=== PATIENT | female | born 1960 | race Caucasian/White ===

== ENCOUNTER 2016-05-26 18:04 | Emergency (ER) | payer SELFPAY ==
[~2016-05-26] VITALS: Ht 170.2 cm; Wt 77.1 kg
[~2016-05-26 18:04] MED LIST: AC500T PO; ACET325T38 PO; ACHD5005 PO; AMOX500C2 PO; ASP81TEC PO; ATOR40TA70 PO; BUTA1CAP40 PO; CEPH-38; CEPH500C PO; CLIN300C3 PO; FAMO-119 PO; FENO145T20 PO; FISH1CAP15 PO; HYDR-3063 PO; HYDR-34 PO; HYDR-3583 PO; IBP200T PO; OMEG-12 PO; OMEG1CAP51 PO; OMEP20CA12 PO; PENI250T4; PRD20T; PRDM473B; PRM25T PO; PROM12.59 PO; PROM25SU10 PR; SIMV20TA PO; SULF1TAB38 PO; TCD12.5U; TRAM-21 PO; TRAM50TA2 PO; VENL75CA PO; VNL75T; VNL75T PO; zocor
[2016-05-26] MEDS ORDERED: EPINEPHrine INJECTION 1 MG/ML AMP IM STA (18:11)
[2016-05-26] MEDS ORDERED: FAMOTIDINE 20MG/2ML IV (PEPCID) IV STA (18:11)
[2016-05-26] MEDS ORDERED: diphenhydrAMINE 50 MG/ML INJ (BENADRYL) IV STA (18:11)
[2016-05-26] MEDS ORDERED: methylPREDNISolone 125 MG (Solu-MEDROL) VIAL IV STA (18:11)
--- OUTSIDE RECORDS SUMMARY | 2016-05-26 18:11 | XMS REPORT | Continuity of Care Document ---
Author Author [facility] Organization [facility] Address Unknown Phone Unavailable Care Team Providers Care Stripper Apprentice Name Role Phone [facility] PCP Insurance Providers Payer Name Policy Number Subscriber Name Relationship [employer] Mp [id number] Melonie Rees 20 Self / Same As Patient Advance Directives Directive Response Recorded Date/Time Advance Directives No 08/24/14 9:49pm Health Care Power of Computer Field Technician No 08/24/14 9:49pm Organ Donor No 08/24/14 9:49pm Resuscitation Status Full Code 08/24/14 9:49pm Problems Medical Problems Problem Onset Date Status Closed head injury Unknown Active Closed head injury Unknown Active Closed head injury Unknown Active Multiple contusions Unknown Active Right upper quadrant pain Unknown Active Headache Unknown Active Nausea and vomiting Unknown Active Right upper quadrant pain Unknown Active Chest pain Unknown Active Hordeolum externum of left lower eyelid Unknown Active Medications Medication Dose Route Sig Days/Qty Instructions Order Date Discontinued Date Status Penicillin G Potassium 08/17/08 01/22/09 Discontinued Promethazine HCl/Dextromethorphan 08/17/08 01/22/09 Discontinued Venlafaxine HCl 01/22/09 01/22/09 Discontinued Venlafaxine HCl 2 Tab PO DAILY 01/22/09 05/17/14 Discontinued Aspirin 81 Mg PO DAILY 08/30/11 Active Acetaminophen 2 Tab PO Q6HR PRN 10/29/11 02/02/13 Discontinued Ibuprofen 400 Mg PO Q4HR PRN 10/29/11 04/16/13 Discontinued Amoxicillin 1 Each PO THREE TIMES A DAY 10 Days 10/29/11 01/30/13 Discontinued [place]-3 Fatty Acids/Fish Oil 4 Each PO TWICE A DAY 01/30/13 Discontinued Trimethoprim/Sulfamethoxazole 1 Ea PO TWICE A DAY 10 Days 01/30/13 Discontinued Acetaminophen/Hydrocodone Bitart 1 Ea PO Q4HR PRN 10 Qty 01/30/13 Discontinued Clindamycin HCl 2 Each PO GIVE EVERY 8 HRS ON SCHEDULE 10 Days take 600 mg three times daily x 10 days 02/02/13 04/16/13 Discontinued Acetaminophen/Hydrocodone Bitart 1 Each PO EVERY 4HRS 15 Qty 02/02/13 04/16/13 Discontinued Promethazine HCl 1 Tab PO FOUR TIMES DAILY 30 Qty as needed for nausea/ vomiting 02/02/13 04/16/13 Discontinued Fish Oil/Dha/Epa 4 Each PO BEDTIME 04/16/13 03/17/14 Discontinued Butalbit/Acetamin/Caff/Codeine 1 Each PO EVERY 4HRS PRN HEADACHE 10 Qty 07/26/13 09/21/13 Discontinued Promethazine HCl 25 Mg PO EVERY 8HRS PRN NAUSEA/VOMITING 14 Qty 09/21/13 Discontinued [place]-3/Dha/Epa/Fish Oil 4,000 Mg PO TWICE A DAY 03/17/14 Active Acetaminophen/Hydrocodone Bitart ([place]) 1 Ea PO EVERY 4HRS PRN PAIN 35 Qty 03/17/14 04/27/14 Discontinued Promethazine Hcl 25 Mg PO EVERY 6 HOURS PRN NAUSEA 30 Qty 03/17/14 Discontinued Tramadol Hcl 50 Mg PO EVERY 6 HOURS PRN PAIN 10 Qty 04/07/14 05/17/14 Discontinued [zocor] BEDTIME 04/27/14 05/17/14 Discontinued Promethazine Hcl 1 Tab PO EVERY 8HRS PRN NAUSEA/VOMITING 10 Qty 05/17/14 Discontinued Promethazine Hcl 25 Mg SD EVERY 8HRS PRN NAUSEA/VOMITING 5 Qty 05/17/14 Discontinued Acetaminophen 1,000 Mg PO EVERY 6 HOURS PRN PAIN 05/17/14 Active Tramadol Hcl 50 Mg PO EVERY 6 HOURS PRN PAIN 05/17/14 08/24/14 Discontinued Simvastatin 20 Mg PO BEDTIME 05/17/14 05/17/14 Discontinued Fenofibrate Nanocrystallized 145 Mg PO DAILY 30 Qty 05/17/14 08/24/14 Discontinued Omeprazole 20 Mg PO DAILY 30 Qty 05/17/14 08/24/14 Discontinued Atorvastatin Calcium 40 Mg PO BEDTIME 30 Qty 05/17/14 Active Hydrocodone Bit/Acetaminophen Unknown Dose PO DIRECTED 08/24/14 Active Venlafaxine HCl 75 Mg PO TWICE A DAY 08/24/14 Active Cephalexin Monohydrate (Keflex) 1 Each PO THREE TIMES A DAY 21 Qty Active Social History Social History Problem Response Recorded Date/Time Alcohol Use Denies Use 08/24/2014 9:49pm Recreational Drug Use No 08/24/2014 9:49pm Recent Foreign Travel No 08/24/2014 9:49pm Recent Infectious Disease Exposure No 08/24/2014 9:49pm Hospitalization with Isolation Contact 09/21/2013 3:00pm Sexually Transmitted Disease No 08/24/2014 9:49pm HIV/AIDS No 08/24/2014 9:49pm Smoking Status Never a Smoker 08/24/2014 9:49pm Do you dip or chew tobacco? No 08/24/2014 9:49pm Query Response Start Date Stop Date Smoking Status Never a Smoker Hospital Discharge Instructions No hospital discharge instructions. Plan of Care No plan of care. Functional Status No functional status results. Allergies, Adverse Reactions, Alerts Allergen Type Severity Reaction Status Last Updated ciprofloxacin ([id number]) Allergy Unknown Active 08/24/14 ondansetron ([id number]) Allergy Unknown Active 03/17/14 Immunizations Name Given Type Date of Pneumonia Vaccine 01/05/11 Historical Date of Influenza Vaccine 02/05/13 Historical Hepatitis A No Historical Hepatitis B No Historical Tetanus Booster (TDap) Unknown Historical Vital Signs Acute Vital Signs Vital Response Date/Time Temperature (Fahrenheit) 98.3 degrees F (97.6 - 99.5) Temperature (Calculated Celsius) 36.89159 degrees C (36.4 - 37.5) Temperature Source Temporal Pulse Rate (adult) 77 bpm (60 - 90) Respiratory Rate 16 bpm (12 - 24) O2 Sat by Pulse Oximetry 98 % (88 - 100) Blood Pressure 149/81 mm Hg Pain Pain Intensity 8 Height (Feet) 5 feet Height (Inches) 7 inches Height (Calculated Centimeters) 170.623603 cm Weight (Pounds) 162 pounds Weight (Calculated Kilograms) 73.807432 kilograms Calculated BMI 25.37 Results No known relevant diagnostic tests, laboratory data and/or discharge summary. Procedures No known history of procedures. Encounters Encounter Location Date/Time Departed Emergency Room [facility] 08/24/14 9:10pm Recent Diagnosis
[2016-05-26] MEDS ORDERED: PROP60TA17 PO (18:28)
[2016-05-26] MEDS ORDERED: LORA10CA PO (18:28)
--- NOTE | 2016-05-26 18:47 | ED General ---
General Chief Complaint: Allergic Reaction Stated Complaint: SOA, ALLERGIC REACTION, NUMBNESS, VOMITING Nursing Triage Note: pt reports reaction to sriracha cheese. immediate vomiting et throat swelling. Nursing Sepsis Screen: No Definite Risk Source of Information: Patient, Family (daughter) Exam Limitations: No Limitations History of Present Illness Time Seen by Provider: 18:05 Initial Comments 55-year-old female patient presents to the emergency department complaints of allergic reaction to srirabenny cheese. Patient reports swelling of the throat, difficulty breathing, difficulty swallowing. Daughter reports patient has developed multiple allergies over the recent years.patient states her EpiPen has run out. Timing/Duration: 1/2 Hour Modifying Factors: worse with Eating (sriracha) Allergies and Home Medications Allergies Coded Allergies: ciprofloxacin (Verified Allergy, Unknown, 08/24/14) naproxen (Verified Allergy, Unknown, 08/24/14) HEADACHE ondansetron (Unverified Allergy, Unknown, 03/17/14) Home Medications Acetaminophen 325 Mg Tablet 1,000 MG PO Q6H PRN PRN PAIN (Reported) Aspirin 81 Mg Tabec 81 MG PO DAILY (Reported) Atorvastatin Calcium 40 Mg Tablet #30 40 MG PO HS Prescribed by: EDUARDO OVALLE on 05/17/14 1429 Cephalexin Monohydrate 500 Mg Capsule #21 1 EACH PO TID Prescribed by: DEJA BAKER on 08/24/14 2225 Epinephrine 0.3 Mg/0.3 Ml Auto.injct #1 0.3 MG IJ UD PRN PRN SHORTNESS OF BREATH Prescribed by: MACKENZIE CONNOR on 05/26/162012 Famotidine 20 Mg Tablet #60 20 MG PO BID Prescribed by: MACKENZIE CONNOR on 12/15/15 1916 Famotidine 20 Mg Tablet #20 20 MG PO BID Prescribed by: MACKENZIE CONNOR on 05/26/162012 Hydrocodone Bit/Acetaminophen 1 Each Tablet Unknown Dose PO UD (Reported) Loratadine 10 Mg Capsule 10 MG PO DAILY (Reported) [place]-3/Dha/Epa/Fish Oil 1 Each Capsule.dr 4,000 MG PO BID (Reported) TAKES 4 (1000MG) CAPSULES TWICE DAILY Prednisone 20 Mg Tab #8 40 MG PO DAILY Prescribed by: MACKENZIE CONNOR on 05/26/162012 Propranolol HCl 60 Mg Tablet #60 60 MG PO BID (Reported) Venlafaxine HCl 75 Mg Cap.er.24h 75 MG PO BID (Reported) Constitutional: no symptoms reported EENTM: see HPI throat swellingNo ear pain, No mouth pain, No mouth swelling, No nose congestion, No throat pain Respiratory: No cough, short of breathNo stridor, No wheezing Cardiovascular: no symptoms reported Gastrointestinal: No abdominal pain, No nausea, No vomiting Genitourinary: no symptoms reported Musculoskeletal: no symptoms reported Skin: No change in color, No lesions, No pruritus, No rash Psychiatric/Neurological: Denies Headache, Denies Seizure Immunological/Allergic: see HPI food allergy All Other Systems Reviewed Negative Unless Noted: Yes (Negative excepted noted.) Past Wnvmbdh-Eyiekb-Xltrbh Hx Patient Social History Alcohol Use: Denies Use Recreational Drug Use: No Smoking Status: Former Smoker Recent Foreign Travel: No Contact w/Someone Who Travel: No Recent Infectious Disease Expo: No Recent Hopitalizations: Yes (PANCREATITIS) Immunizations Up To Date Tetanus Booster (TDap): Unknown PED Vaccines UTD: Yes Date of Pneumonia Vaccine: Jan 05, 2011 Date of Influenza Vaccine: Feb 06, 2016 Seasonal Allergies Seasonal Allergies: No Surgeries HX Surgeries: Yes (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 Genitourinary Hx Genitourinary Disorders: No Gastrointestinal Hx Gastrointestinal Disorders: No Gastrointestinal Disorders: Pancreatitis Musculoskeletal Hx Musculoskeletal Disorders: Yes Musculoskeletal Disorders: Fibromyalgia Endocrine Hx Endocrine Disorders: No HEENT HX ENT Disorders: No HEENT Disorders: Chronic Ear Infection Loss of Vision: Denies Cancer Hx Cancer: Yes Cancer: Pancreatic Psychosocial Hx Psychiatric Problems: No Behavioral Health Disorders: Depression Integumentary HX Skin/Integumentary Disorder: No Blood Transfusions Hx Blood Disorders: Yes Adverse Reaction to a Blood Tr: No Reviewed Nursing Assessment Reviewed/Agree w Nursing PMH: Yes Family Medical History Significant Family History: Heart Disease, CAD Under 55 Years Old Family Medial History: Alzheimer's disease 19 MOTHER Cardiovascular disease 19 MOTHER Diabetes mellitus 19 MOTHER FH: CHF (congestive heart failure) 19 MOTHER Hypertension 19 MOTHER Kidney disease 19 MOTHER Myocardial infarction 19 MOTHER Physical Exam Vital Signs Vital Sign - Last 12Hours 05/26/16 18:05 Temp 98.3 Pulse 71 Resp 24 B/P 161/92 Capillary Refill : Less Than 3 Seconds General Appearance: No Apparent Distress WD/WN HEENT: PERRL/EOMI TMs Normal Normal ENT Inspection Pharynx Normal Neck: Full Range of Motion Normal Inspection Non Tender Supple Respiratory: Lungs Clear No Accessory Muscle Use No Respiratory Distress Decreased Breath Sounds Cardiovascular: Regular Rate, Rhythm No Edema No Murmur Normal Peripheral Pulses Gastrointestinal: Normal Bowel Sounds Non Tender SoftNo Distended Back: Normal Inspection Extremity: Normal Capillary Refill Normal Inspection Neurologic/Psychiatric: Alert Oriented x3 No Motor/Sensory Deficits cloth desizing range tender II- XII Norm as Tested Other (anxious) Skin: Normal Color Warm/Dry Progress/Results/Core Measures Results/Orders My Orders Orders-MACKENZIE CONNOR Saline Lock/Iv-Start (05/26/16 18:11) Famotidine Injection (Pepcid Injection) (05/26/16 18:11) Epinephrine 1 Mg Injection (Adrenalin I (05/26/16 18:11) Methylprednisolone Sod Succ (Solu-Medrol (05/26/16 18:11) Diphenhydramine Injection (Benadryl Inje (05/26/16 18:11) Prednisone Tablet (Deltasone Tablet) (05/26/16 22:15) Vital Signs/I&O Vital Sign - Last 12Hours 05/26/16 18:05 Temp 98.3 Pulse 71 Resp 24 B/P 161/92 Blood Pressure Mean: 115 Departure Communication Progress Notes Patient seen and evaluated. Patient was advised that we would observe her for 4 hours. If after 4 hours she has not had recurrence of symptoms, we will dsch her to home. Patient was monitored closely throughout the ED visit. No recurrence of swelling of the throat or SOA was noted. Patient continued to show improvement in BS bilaterally. Patient was able to fall asleep during the visit and rest comfortably. ED visit uneventful. Plan for dsch to home with prescriptions for an epipen, pepcid, and prednisone. Patient instructed to use benadryl over the counter if needed for symptoms and to f/u with her PCP for recheck this week. all return precautions were discussed with the patient as described in the discharge instructions of this report. Patient voices understanding and agrees with the treatment plan. Patient case discussed with Dr. Jones, he agrees with the plan of care. Impression Impression: Primary Impression: Food allergy Disposition: 01 HOME, SELF-CARE Condition: Improved Departure-Patient Inst. Decision time for Depature: 20:10 Referrals: [facility] (PCP/Family) Primary Care Physician Patient Instructions: Food Allergy, Anaphylaxis (DC) Add. Discharge Instructions: All discharge instructions reviewed with patient and/or family. Voiced understanding. medications as instructed. Benadryl [id number] as directed for rash, itching, difficulty swallowing, swelling. Avoid the offending agent. Follow-up with your family practitioner for recheck this week , call for appointment time tomorrow morning. Return to the emergency department for worsened shortness of air, swelling, difficulty swallowing, headache, dizziness, vomiting, or any other concerns. Scripts Epinephrine (Epipen 2-Shaq)0.3 Mg/0.3 Ml Auto.injct0.3 Mg IJ UD PRN SHORTNESS OF BREATH #1 PKT Ref 0 Prov:MACKENZIE CONNOR 05/26/16 Famotidine (Pepcid)20 Mg [id number] Mg PO BID #20 TAB Ref 0 Prov:MACKENZIE CONNOR 05/26/16 Prednisone 20 Mg Tab40 Mg PO DAILY #8 TAB Ref 0 Prov:MACKENZIE CONNOR 05/26/16 MACKENZIE CONNOR May 26, 2016 18:47
[2016-05-26] MEDS ORDERED: PRD20T PO (20:13)
[2016-05-26] MEDS ORDERED: EPIN0.3P3 IJ (20:13)
[2016-05-26] MEDS ORDERED: FAMO-119 PO (20:13)
[2016-05-26] MEDS ORDERED: predniSONE 20 MG TAB PO ONE (22:15)
[2016-05-26 22:20] VITALS: BP 154/88
== END 2016-05-26 22:20 | disposition home or self-care (01) ==
LOC: EDUNIT# 18:04 → ER 18:05
DX: R13.10 Dysphagia, unspecified (principal); R22.0 Localized swelling, mass and lump, head; T78.1XXA Other adverse food reactions, not elsewhere classified, initial encounter; I10 Essential (primary) hypertension; Z79.82 Long term (current) use of aspirin; Z79.899 Other long term (current) drug therapy; Z87.891 Personal history of nicotine dependence
CPT/HCPCS: 96372; 96374; 96375

== ENCOUNTER 2016-09-03 06:47 | Emergency (ER) | payer SELFPAY ==
[~2016-09-03] VITALS: Ht 167.6 cm; Wt 68.0 kg
[~2016-09-03 06:47] MED LIST changes: +EPIN0.3P3 IJ; +LORA10CA PO; +PRD20T PO; +PROP60TA17 PO
[2016-09-03] MEDS ORDERED: KETOROLAC 60 MG/2 ML VIAL IM ONE (07:15)
[2016-09-03] MEDS ORDERED: ORPHENADRINE 60 MG/2 ML (NORFLEX) AMP IM ONE (07:15)
--- NOTE | 2016-09-03 07:36 | Diagnostic Imaging Report ---
INDICATION: Right hip pain 2 views of the right hip show no fracture, dislocation or other acute abnormalities. IMPRESSION: Negative right hip. Dictated by: Dictated on workstation # [id number]
--- NOTE | 2016-09-03 07:36 | Diagnostic Imaging Report ---
INDICATION: Right hip pain AP view pelvis shows no fracture or dislocation. IMPRESSION: Negative pelvis. Dictated by: Dictated on workstation # [id number]
--- NOTE | 2016-09-03 07:50 | ED Hip Pain/Injury ---
General Chief Complaint: Hip/Pelvic Problems Stated Complaint: HIP PAIN,SOMETHING POPPED WHEN STRETCHING LEG SATU Nursing Triage Note: PT CO OF R HIP PAIN Source: patient Exam Limitations: no limitations History of Present Illness Time seen by provider: 07:00 Initial Comments This 56-year-old woman presents to the emergency room with complaints of pain in her right hip and right lower back. She experiences a popping sensation. She reports recently being seen by specialist in [place] who performed manipulation therapy. Her pain has been worse since then. She denies any fall or trauma. She has not taken anything this morning for pain. She tried hydrocodone when pain started and it was not helpful. She is presently on long- term steroid use for lupus. Allergies and Home Medications Allergies Coded Allergies: ciprofloxacin (Verified Allergy, Unknown, 08/24/14) naproxen (Verified Allergy, Unknown, 08/24/14) HEADACHE ondansetron (Unverified Allergy, Unknown, 03/17/14) Home Medications Acetaminophen 325 Mg Tablet, 1,000 MG PO Q6H PRN for PAIN, (Reported) Aspirin 81 Mg Tabec, 81 MG PO DAILY, (Reported) Atorvastatin Calcium 40 Mg Tablet, 40 MG PO HS, #30 Ref 4 Prescribed by: EDUARDO OVALLE on 05/17/14 1429 Cephalexin Monohydrate 500 Mg Capsule, 1 EACH PO TID, #21 Prescribed by: DEJA BAKER on 08/24/14 2225 Cyclobenzaprine HCl 10 Mg Tablet, 10 MG PO TID PRN for SPASMS, #10 Prescribed by: CHILO LOVE on 09/03/16 0806 Epinephrine 0.3 Mg/0.3 Ml Auto.injct, 0.3 MG IJ UD PRN for SHORTNESS OF BREATH, #1 Ref 0 Prescribed by: MACKENZIE CONNOR on 05/26/162012 Famotidine 20 Mg Tablet, 20 MG PO BID, #60 Ref 0 Prescribed by: MACKENZIE CONNOR on 12/15/15 1916 Famotidine 20 Mg Tablet, 20 MG PO BID, #20 Ref 0 Prescribed by: MACKENZIE CNONOR on 05/26/162012 Hydrocodone Bit/Acetaminophen 1 Each Tablet, Unknown Dose PO UD, (Reported) Loratadine 10 Mg Capsule, 10 MG PO DAILY, (Reported) [place]-3/Dha/Epa/Fish Oil 1 Each Capsule., 4,000 MG PO BID, (Reported) TAKES 4 (1000MG) CAPSULES TWICE DAILY Prednisone 20 Mg Tab, 40 MG PO DAILY, #8 Ref 0 Prescribed by: MACKENZIE CONNOR on 05/26/162012 Propranolol HCl 60 Mg Tablet, 60 MG PO BID, #60 (Reported) Venlafaxine HCl 75 Mg Cap.er.24h, 75 MG PO BID, (Reported) Constitutional: no symptoms reported EENTM: no symptoms reported Respiratory: no symptoms reported Cardiovascular: no symptoms reported Gastrointestinal: no symptoms reported Genitourinary: no symptoms reported Musculoskeletal: see HPI Skin: no symptoms reported Psychiatric/Neurological: No Symptoms Reported Past Invrnuw-Awfxxt-Ttksud Hx Patient Social History Alcohol Use: Denies Use Recreational Drug Use: No Smoking Status: Former Smoker Recent Foreign Travel: No Contact w/Someone Who Travel: No Recent Infectious Disease Expo: No Recent Hopitalizations: Yes (PANCREATITIS) Immunizations Up To Date Tetanus Booster (TDap): Unknown PED Vaccines UTD: Yes Date of Pneumonia Vaccine: Jan 05, 2011 Date of Influenza Vaccine: Feb 06, 2016 Seasonal Allergies Seasonal Allergies: No Surgeries HX Surgeries: Yes (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 Genitourinary Hx Genitourinary Disorders: No Gastrointestinal Hx Gastrointestinal Disorders: No Gastrointestinal Disorders: Pancreatitis Musculoskeletal Hx Musculoskeletal Disorders: Yes Musculoskeletal Disorders: Fibromyalgia Endocrine Hx Endocrine Disorders: Yes Endocrine Disorders: Lupus HEENT HX ENT Disorders: No HEENT Disorders: Chronic Ear Infection Loss of Vision: Denies Cancer Hx Cancer: Yes Cancer: Pancreatic Psychosocial Hx Psychiatric Problems: No Behavioral Health Disorders: Depression Integumentary HX Skin/Integumentary Disorder: No Blood Transfusions Hx Blood Disorders: Yes Adverse Reaction to a Blood Tr: No Family Medical History Significant Family History: Heart Disease, CAD Under 55 Years Old Family Medial History: Alzheimer's disease 19 MOTHER Cardiovascular disease 19 MOTHER Diabetes mellitus 19 MOTHER FH: CHF (congestive heart failure) 19 MOTHER Hypertension 19 MOTHER Kidney disease 19 MOTHER Myocardial infarction 19 MOTHER Physical Exam Vital Signs Vital Sign - Last 12Hours 09/03/16 07:05 Temp 97.1 Pulse 72 Resp 18 B/P (MAP) 136/74 Pulse Ox 98 Capillary Refill : Less Than 3 Seconds General Appearance: WD/WN, Mild Distress HEENT: PERRL/EOMI, Normal ENT Inspection Cardiovascular: Regular Rate, Rhythm, No Edema, No Murmur Respiratory: Lungs Clear, Normal Breath Sounds, No Accessory Muscle Use, No Respiratory Distress Gastrointestinal: Normal Bowel Sounds, Non Tender, Soft Extremity: Normal Range of Motion, Other (pain in the right hip with deep palpation and external rotation. Tenderness over the right SI joint. Distal sensation, movement, pedal pulses, and capillary refill intact.) Neurologic/Psychiatric: Alert, Oriented x3, No Motor/Sensory Deficits, Normal Mood/Affect, printing agent II-XII Norm as Tested Skin: Normal Color, Warm/Dry Progress/Results/Core Measures Results/Orders My Orders Orders - CHILO GALLARDO MD Ketorolac Injection (Toradol Injection) (09/03/16 07:15) Orphenadrine Injection (Norflex Injectio (09/03/16 07:15) Pelvis (09/03/16 07:14) Hip, Right, 2 Views (09/03/16 07:14) Medications Given in ED Current Medications Medications Dose Ordered Sig/Adalberto Route Start Time Stop Time Status Last Admin Dose Admin Ketorolac Tromethamine 60 mg ONCE ONCE IM 09/03/16 07:15 09/03/16 07:16 DC 09/03/16 07:18 60 MG Orphenadrine Citrate 60 mg ONCE ONCE IM 09/03/16 07:15 09/03/16 07:16 DC 09/03/16 07:18 60 MG Vital Signs/I&O Vital Sign - Last 12Hours 09/03/16 09/03/16 07:05 08:07 Temp 97.1 Pulse 72 72 Resp 18 18 B/P (MAP) 136/74 Pulse Ox 98 98 Blood Pressure Mean: 94 Progress Note : Progress Note Patient was treated with Toradol and Norflex with significant improvement. X- ray showed no acute abnormalities. Diagnostic Imaging Diagonstic Imaging: Xray Plain Films/CT/US/NM/MRI: hip Comments Right hip x-ray viewed by me and report reviewed. See report below: NAME: SHERIF REES MED REC#: [id number] PT STATUS: REG ER : 1960 PHYSICIAN: CHILO GALLARDO MD ADMIT DATE: 09/03/16/ER Draft Date of Exam:09/03/16 HIP, RIGHT, 2 VIEWS INDICATION: Right hip pain 2 views of the right hip show no fracture, dislocation or other acute abnormalities. IMPRESSION: Negative right hip. Dictated on workstation # [id number] Dict: 09/03/16 0733 Trans: 09/03/[address] [place] [phone] Interpreted by: ALBARO JONES Diagonstic Imaging: Xray Plain Films/CT/US/NM/MRI: pelvis Comments Pelvis x-ray viewed by me and report reviewed. See report below: NAME: SHERIF REES MED REC#: [id number] PT STATUS: REG ER : 1960 PHYSICIAN: CHILO GALLARDO MD ADMIT DATE: 09/03/16/ER Draft Date of Exam:09/03/16 PELVIS INDICATION: Right hip pain AP view pelvis shows no fracture or dislocation. IMPRESSION: Negative pelvis. Dictated on workstation # [id number] Dict: 09/03/16 0734 Trans: 09/03/16[facility] [id number] Interpreted by: ALBARO JONES Departure Impression Impression: Primary Impression: Right hip pain Additional Impression: Sacroiliitis Disposition: 01 HOME, SELF-CARE Condition: Improved Departure-Patient Inst. Decision time for Depature: 07:56 Referrals: [facility] (PCP) Primary Care Physician SARAH BURNS (Family) Primary Care Physician Patient Instructions: Sacroiliac Joint Pain Add. Discharge Instructions: Your pain seems to be arising from 2 places, the sacroiliac joint and the right hip joint. Use of ibuprofen up to 600 mg every 6 hours as needed may be more helpful than hydrocodone. Add hydrocodone for pain insufficiently controlled by ibuprofen. Take ibuprofen with food or milk to avoid irritation on your stomach. Follow-up with your primary care provider as needed. If symptoms are not improving over the next several days, discuss further imaging such as MRI with your doctor. Return to the ER if symptoms significantly worsen again. Avoid strenuous activity including excessive bending or squatting or heavy lifting. All discharge instructions reviewed with patient and/or family. Voiced understanding. Scripts Cyclobenzaprine HCl (Cyclobenzaprine HCl) 10 Mg Tablet 10 MG PO TID Y for SPASMS, #10 TAB Prov: CHILO GALLARDO MD 09/03/16 CHILO GALLARDO MD September 03, 2016 07:50
[2016-09-03] MEDS ORDERED: CYCL10TA9 PO (08:06)
[2016-09-03 08:07] VITALS: BP 136/74
== END 2016-09-03 08:07 | disposition home or self-care (01) ==
LOC: EDUNIT# 06:47 → ER 06:49
DX: M25.551 Pain in right hip (principal); M46.1 Sacroiliitis, not elsewhere classified; M79.7 Fibromyalgia; L93.0 Discoid lupus erythematosus; G89.29 Other chronic pain; I10 Essential (primary) hypertension; Z79.82 Long term (current) use of aspirin; Z79.899 Other long term (current) drug therapy; Z79.52 Long term (current) use of systemic steroids
CPT/HCPCS: 72170; 73502; 99283

== ENCOUNTER 2016-09-03 19:01 | Emergency (ER) | payer SELFPAY ==
[~2016-09-03] VITALS: Ht 167.6 cm; Wt 68.0 kg
[~2016-09-03 19:01] MED LIST changes: +CYCL10TA9 PO
[2016-09-03] MEDS ORDERED: ORPHENADRINE 60 MG/2 ML (NORFLEX) AMP ONE (20:18)
--- NOTE | 2016-09-03 20:19 | ED Hip Pain/Injury ---
General Chief Complaint: Hip/Pelvic Problems Stated Complaint: R HIP PAIN Nursing Triage Note: PT HERE WITH C/O R HIP PAIN. PT WAS SEEN IN THE ER THIS AM WITH SAME COMPLAINT. Source: patient Exam Limitations: no limitations History of Present Illness Time seen by provider: 20:19 Initial Comments To ER moaning and screaming in pain with reports of right buttock pain for the past few days after her fibromyalgia specialist referred her to an software development specialist, she did the exercises and this was followed by pain. She was seen here this morning for the same. No fevers, chills, or loss of bowel or bladder control. She had flexeril sent to [facility] this morning. Timing/Duration: just prior to arrival Severity: moderate Location: hip (R) Associated Symptoms: denies symptoms Allergies and Home Medications Allergies Coded Allergies: ciprofloxacin (Verified Allergy, Unknown, 08/24/14) naproxen (Verified Allergy, Unknown, 08/24/14) HEADACHE ondansetron (Unverified Allergy, Unknown, 03/17/14) Home Medications Acetaminophen 325 Mg Tablet, 1,000 MG PO Q6H PRN for PAIN, (Reported) Aspirin 81 Mg Tabec, 81 MG PO DAILY, (Reported) Atorvastatin Calcium 40 Mg Tablet, 40 MG PO HS, #30 Ref 4 Prescribed by: EDUARDO OVALLE on 05/17/14 1429 Cephalexin Monohydrate 500 Mg Capsule, 1 EACH PO TID, #21 Prescribed by: DEJA BAKER on 08/24/14 2225 Cyclobenzaprine HCl 10 Mg Tablet, 10 MG PO TID PRN for SPASMS, #10 Prescribed by: CHILO LOVE on 09/03/16 0806 Epinephrine 0.3 Mg/0.3 Ml Auto.injct, 0.3 MG IJ UD PRN for SHORTNESS OF BREATH, #1 Ref 0 Prescribed by: MACKENZIE CONNOR on 05/26/162012 Famotidine 20 Mg Tablet, 20 MG PO BID, #60 Ref 0 Prescribed by: MACKENZIE CONNOR on 12/15/15 1916 Famotidine 20 Mg Tablet, 20 MG PO BID, #20 Ref 0 Prescribed by: MACKENZIE CONNOR on 05/26/162012 Hydrocodone Bit/Acetaminophen 1 Each Tablet, Unknown Dose PO UD, (Reported) Loratadine 10 Mg Capsule, 10 MG PO DAILY, (Reported) [place]-3/Dha/Epa/Fish Oil 1 Each Capsule.dr, 4,000 MG PO BID, (Reported) TAKES 4 (1000MG) CAPSULES TWICE DAILY Prednisone 20 Mg Tab, 40 MG PO DAILY, #8 Ref 0 Prescribed by: MACKENZIE CONNOR on 05/26/162012 Propranolol HCl 60 Mg Tablet, 60 MG PO BID, #60 (Reported) Venlafaxine HCl 75 Mg Cap.er.24h, 75 MG PO BID, (Reported) Constitutional: see HPI EENTM: see HPI Respiratory: no symptoms reported Cardiovascular: no symptoms reported Genitourinary: no symptoms reported Musculoskeletal: no symptoms reported Skin: no symptoms reported Psychiatric/Neurological: No Symptoms Reported Past Yzqxdtn-Dougjf-Hnyjot Hx Patient Social History Recent Foreign Travel: No Contact w/Someone Who Travel: No Recent Infectious Disease Expo: No Recent Hopitalizations: Yes (PANCREATITIS) Immunizations Up To Date Tetanus Booster (TDap): Unknown PED Vaccines UTD: Yes Date of Pneumonia Vaccine: Jan 05, 2011 Date of Influenza Vaccine: Feb 06, 2016 Seasonal Allergies Seasonal Allergies: No Surgeries HX Surgeries: Yes (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 Genitourinary Hx Genitourinary Disorders: No Gastrointestinal Hx Gastrointestinal Disorders: No Gastrointestinal Disorders: Pancreatitis Musculoskeletal Hx Musculoskeletal Disorders: Yes Musculoskeletal Disorders: Fibromyalgia Endocrine Hx Endocrine Disorders: Yes Endocrine Disorders: Lupus HEENT HX ENT Disorders: No HEENT Disorders: Chronic Ear Infection Loss of Vision: Denies Cancer Hx Cancer: Yes Cancer: Pancreatic Psychosocial Hx Psychiatric Problems: No Behavioral Health Disorders: Depression Integumentary HX Skin/Integumentary Disorder: No Blood Transfusions Hx Blood Disorders: Yes Adverse Reaction to a Blood Tr: No Family Medical History Significant Family History: Heart Disease, CAD Under 55 Years Old Family Medial History: Alzheimer's disease 19 MOTHER Cardiovascular disease 19 MOTHER Diabetes mellitus 19 MOTHER FH: CHF (congestive heart failure) 19 MOTHER Hypertension 19 MOTHER Kidney disease 19 MOTHER Myocardial infarction 19 MOTHER Physical Exam Vital Signs Vital Sign - Last 12Hours 09/03/16 19:26 Temp 98.7 Pulse 114 Resp 18 B/P (MAP) 132/63 Pulse Ox 98 O2 Delivery Room Air Capillary Refill : Less Than 3 Seconds General Appearance: No Apparent Distress, WD/WN HEENT: PERRL/EOMI, TMs Normal Neck: Full Range of Motion, Normal Inspection Respiratory: No Accessory Muscle Use, No Respiratory Distress Gastrointestinal: Normal Bowel Sounds, Non Tender, Soft Extremity: Normal Capillary Refill, Normal Inspection Neurologic/Psychiatric: Alert, Oriented x3, No Motor/Sensory Deficits, Normal Mood/Affect Skin: Normal Color, Warm/Dry Comments wailing, moaning until she is brought back to room 10, then stops screaming. Progress/Results/Core Measures Results/Orders My Orders Orders - DEJA BAKER APRN Morphine Injection (Morphine Injection (09/03/16 20:30) Ketorolac Injection (Toradol Injection) (09/03/16 20:30) Ct Lumbar Spine Wo (09/03/16 20:18) Orphenadrine Injection (Norflex Injectio (09/03/16 20:30) Orphenadrine Injection (Norflex Injectio (09/03/16 20:18) Medications Given in ED Current Medications Medications Dose Ordered Sig/Adalberto Route Start Time Stop Time Status Last Admin Dose Admin Ketorolac Tromethamine 60 mg ONCE ONCE IM 09/03/16 20:30 09/03/16 20:31 DC 09/03/16 20:27 60 MG Orphenadrine Citrate 60 mg ONCE ONCE IM 09/03/16 20:30 09/03/16 20:31 DC 09/03/16 20:27 60 MG Vital Signs/I&O Vital Sign - Last 12Hours 09/03/16 19:26 Temp 98.7 Pulse 114 Resp 18 B/P (MAP) 132/63 Pulse Ox 98 O2 Delivery Room Air Blood Pressure Mean: 86 Diagnostic Imaging Diagonstic Imaging: CT Comments NAME: SHERIF REES Jamar MED REC#: [id number] PT STATUS: REG ER : 1960 PHYSICIAN: DEJA BAKER APRN ADMIT DATE: 09/03/16/ER Draft Date of Exam:09/03/16 CT LUMBAR SPINE WO PROCEDURE: CT lumbar spine without contrast. TECHNIQUE: Multiple contiguous axial images were obtained through the lumbar spine without the use of intravenous contrast. Sagittal and coronal reformations were then performed. INDICATION: Lower right back pain COMPARISON STUDIES: Plain films of the lumbar spine from 04/07/14. FINDINGS: There is a 2-3 mm calculi in the left kidney. The kidneys are incompletely imaged. Mild arteriosclerosis is present. No fracture or subluxation is present. The disc spaces are of normal width. C3-4 level appears normal. C4-5 level demonstrates mild facet arthropathy with some hypertrophy of ligamentum flavum. Mild central stenosis is present. The L5-S1 level demonstrates mild facet arthropathy. No stenosis is present. IMPRESSION: Mild central stenosis is present at L4-5. Facet arthropathy is present at L3-4, L4-5 and L5-S1. Dictated on workstation # [id number] Dict: 09/03/162044 Trans: 09/03/162051 [facility] [id number] Interpreted by: CHRISTINE FOREMAN MD Electronically signed by: Departure Impression Impression: Primary Impression: Chronic pain Disposition: 01 HOME, SELF-CARE Condition: Stable Departure-Patient Inst. Decision time for Depature: 20:25 Referrals: [facility] (PCP) Primary Care Physician SARAH BURNS (Family) Primary Care Physician Patient Instructions: Low Back Pain (DC) Add. Discharge Instructions: All discharge instructions reviewed with patient and/or family. Voiced understanding. DEJA BAKER SENIOR SYSTEMS ANALYST September 03, 2016 20:19
[2016-09-03] MEDS ORDERED: morphine INJ 10 MG/ML 1ML (SYR OR VIAL) IM ONE (20:30)
[2016-09-03] MEDS ORDERED: KETOROLAC 60 MG/2 ML VIAL IM ONE (20:30)
[2016-09-03] MEDS ORDERED: ORPHENADRINE 60 MG/2 ML (NORFLEX) AMP IM ONE (20:30)
--- NOTE | 2016-09-03 20:53 | Diagnostic Imaging Report ---
PROCEDURE: CT lumbar spine without contrast. TECHNIQUE: Multiple contiguous axial images were obtained through the lumbar spine without the use of intravenous contrast. Sagittal and coronal reformations were then performed. INDICATION: Lower right back pain COMPARISON STUDIES: Plain films of the lumbar spine from 04/07/14. FINDINGS: There is a 2-3 mm calculi in the left kidney. The kidneys are incompletely imaged. Mild arteriosclerosis is present. No fracture or subluxation is present. The disc spaces are of normal width. L3-4 level appears normal. L4-5 level demonstrates mild facet arthropathy with some hypertrophy of ligamentum flavum. Mild central stenosis is present. The L5-S1 level demonstrates mild facet arthropathy. No stenosis is present. IMPRESSION: Mild central stenosis is present at L4-5. Facet arthropathy is present at L3-4, L4-5 and L5-S1. Dictated by: Dictated on workstation # [id number]
[2016-09-03 21:06] VITALS: BP 122/63
== END 2016-09-03 21:06 | disposition home or self-care (01) ==
LOC: EDUNIT# 19:01 → ER 19:02
DX: M79.7 Fibromyalgia (principal); G89.29 Other chronic pain; I10 Essential (primary) hypertension; Z79.82 Long term (current) use of aspirin; Z79.899 Other long term (current) drug therapy
CPT/HCPCS: 72131; 99282

== ENCOUNTER 2016-09-05 20:12 | Inpatient (IN) | payer SELFPAY ==
[~2016-09-05] VITALS: Ht 170.2 cm; Wt 91.6 kg
[2016-09-05] MEDS ORDERED: NS IV 1000 ML 1,000 ML ONE ×2 (20:19→22:54)
[2016-09-05] MEDS ORDERED: NS IV 1000 ML 1,000 ML IV ONE ×2 (20:21→22:57)
[2016-09-05 20:29] LABS: MEAN CORPUSCULAR HEMOGLOBIN 29 PG (25-34); MEAN CORPUSCULAR HGB CONC 33 G/DL (32-36); MEAN CORPUSCULAR VOLUME 89 FL (80-99); MEAN PLATELET VOLUME 11.9 FL (7.4-10.4); PLATELET COUNT 330 10^3/uL (130-400); RED BLOOD COUNT 4.82 10^6/uL (4.35-5.85); RED CELL DISTRIBUTION WIDTH 12.9 % (10.0-14.5); WHITE BLOOD COUNT 6.5 10^3/uL (4.3-11.0)
[2016-09-05 20:38] LABS: INR 1.4 (0.8-1.4); PROTHROMBIN TIME PATIENT 17.3 SEC (12.2-14.7)
[2016-09-05 20:49] LABS: ACETAMINOPHEN 21 UG/ML (10-30); ALANINE AMINOTRANSFERASE 47 U/L (0-55); ALBUMIN 3.7 G/DL (3.2-4.5); ANION GAP 22 MMOL/L (5-14); ASPARTATE AMINO TRANSFERASE 68 U/L (5-34); BILIRUBIN,TOTAL 0.8 MG/DL (0.1-1.0); BLOOD UREA NITROGEN 36 MG/DL (7-18); BUN/CREATININE RATIO 17; CARBON DIOXIDE 16 MMOL/L (21-32); CHLORIDE 102 MMOL/L (98-107); CREATINE KINASE 1153 U/L (29-168); CREATININE SERUM 2.16 MG/DL (0.60-1.30); GFR ESTIMATED 24; GLUCOSE 315 MG/DL (70-105); MAGNESIUM 2.3 MG/DL (1.8-2.4); POTASSIUM 3.5 MMOL/L (3.6-5.0); SODIUM 140 MMOL/L (135-145); TOTAL PROTEIN 7.7 G/DL (6.4-8.2)
[2016-09-05 20:54] LABS: BAND NEUTROPHILS 23 %; BASOPHILS % (MANUAL) 0 %; EOSINOPHILS % (MANUAL) 0 %; LYMPHOCYTES % (MANUAL) 40 %; METAMYELOCYTES % 2 %; NEUTROPHILS % (MANUAL) 30 %
[2016-09-05 20:56] LABS: ALCOHOL < 10 MG/DL (<10)
[2016-09-05 21:02] LABS: KETONES,URINE 1+ (NEGATIVE); LEUKOCYTE ESTERASE ,URINE 3+ (NEGATIVE); NITRITE,URINE NEGATIVE (NEGATIVE); PH,URINE 5 (5-9); PROTEIN,URINE 3+ (NEGATIVE); UROBILINOGEN,URINE 4 MG/DL (NORMAL)
--- NOTE | 2016-09-05 21:06 | Diagnostic Imaging Report ---
Indication: Slurred speech Comparison studies CT scan the head from 04/07/14. Findings: Noncontrast CT scan the head demonstrates mass effect midline shift hemorrhage or extra-axial fluid collections. [place]-white matter differentiation is normal. No evidence for hyperdense MCA sign is present the ventricles cortical sulci and basilar cisterns appear normal. There's been resection of the right mastoids. Visualized portions of the paranasal sinuses are clear. Impression: There are no acute findings. Dictated by: Dictated on workstation # [id number]
--- NOTE | 2016-09-05 21:08 | Diagnostic Imaging Report ---
INDICATION: Stroke protocol, slurred speech. COMPARISON STUDY: Chest from 12/15/15. FINDINGS: Portable upright view of the chest demonstrates the heart size to be stable and at the upper limits of normal. Mild congestion has developed. No effusions are seen. IMPRESSION: There is mild pulmonary congestion. Dictated by: Dictated on workstation # [id number]
[2016-09-05 21:09] LABS: TROPONIN I < 0.30 NG/ML (<0.30)
[2016-09-05 21:21] LABS: BILIRUBIN,URINE NEGATIVE (NEGATIVE); WBC,URINE >100 /HPF
[2016-09-05 21:26] LABS: ABG BASE EXCESS -8.4 MMOL/L (-2.5-2.5); ABG HCO3 19 MMOL/L (23-27); ABG OXYGEN SATURATION 68 % (94-100); ABG PCO2 59 MMHG (35-45); ABG PO2 48 MMHG (79-93)
[2016-09-05 21:28] LABS: ABG PH 7.14 (7.37-7.43)
[2016-09-05 21:29] LABS: PATIENT TEMP 98.6
[2016-09-05] MEDS ORDERED: D5W 250 ML (IVPB) 250 ML IV ONE (21:35)
[2016-09-05] MEDS ORDERED: NOREPINEPHRINE 4 MG/4 ML (LEVOPHED) AMP IV ONE (21:35)
[2016-09-05] MEDS ORDERED: cefTRIAXone INJECTION 1,000 MG in NS (IVPB) 50 ML IV ONE (21:45)
[2016-09-05] MEDS ORDERED: ENOXAPARIN 80 MG/0.8 ML (LOVENOX) SYR SC ONE ×2 (21:45→22:00)
[2016-09-05] MEDS ORDERED: NOREPINEPHRINE 4 MG in D5W 250 ML (IVPB) 250 ML IV SCH (22:00)
[2016-09-05] MEDS ORDERED: HEParin (CENTRAL IV FLUSH) 500 UNIT/5 ML SYR ONE (22:05)
[2016-09-05] MEDS ORDERED: PHENYLEPHRINE INJ 10 MG/ML (NEO-SYNEPHRINE 1%) ONE (22:13)
[2016-09-05] MEDS ORDERED: NS IV 500 ML 500 ML ONE (22:14)
[2016-09-05] MEDS ORDERED: NS (IVPB) 250 ML ONE (22:17)
[2016-09-05 22:19] VITALS: BP 88/57
--- NOTE | 2016-09-05 22:39 | Progress Note-Post Operative ---
Post-Operative Progess Note Surgeon (s)/Accounting Manager Controller (s) Surgeon SANDRINE KAPADIA DO Accounting Manager Controller: NA Pre-Operative Diagnosis SEPTIC SHOCK Post-Operative Diagnosis SAME Procedure & Operative Findings Date of Procedure 09/05/16 Procedure Performed/Findings Right IJ central line using u/s Anesthesia Type local Estimated Blood Loss Estimated blood loss (mL): min Specimens/Packing Specimens Removed na SANDRINE KAPADIA DO Sep 05, 2016 22:38
--- NOTE | 2016-09-05 22:40 | Consultation ---
History of Present Illness History of Present Illness Patient Consulted On(jenise/time) 09/05/16 22:39 Date of Admission History of Present Illness Consult requested by Dr. Richardson for Central line placement for septic shock Patient brought by ems. Found unresponsive by family and patient had cpr initiated. Patient hypotensive. Patient not communicating but is able to move all 4 extremities. No information provided by patient due to condition. Allergies and Home Medications Allergies Coded Allergies: ciprofloxacin (Verified Allergy, Unknown, 08/24/14) naproxen (Verified Allergy, Unknown, 08/24/14) HEADACHE ondansetron (Unverified Allergy, Unknown, 03/17/14) Home Medications Acetaminophen 325 Mg Tablet, 1,000 MG PO Q6H PRN for PAIN, (Reported) Aspirin 81 Mg Tabec, 81 MG PO DAILY, (Reported) Atorvastatin Calcium 10 Mg Tablet, 10 MG PO HS, (Reported) Cyclobenzaprine HCl 10 Mg Tablet, 10 MG PO TID PRN for MUSCLE SPASMS, (Reported) Epinephrine 0.3 Mg/0.3 Ml Auto.injct, 0.3 MG SQ UD PRN for ANAPHYLAXIS, ( Reported) Fenofibrate Nanocrystallized 145 Mg Tablet, 145 MG PO DAILY, (Reported) Gabapentin 300 Mg Capsule, 300 MG PO TID, (Reported) LAST FILLED 07/01/16 #90 Hydrocodone/Acetaminophen 1 Each Tablet, 1 TAB PO TID PRN for PAIN-MODERATE, ( Reported) Loratadine 10 Mg Tablet, 10 MG PO DAILY, (Reported) LAST FILLED 07/23/16 #30 Metformin HCl 500 Mg Tablet, 500 MG PO BID WITH MEALS, (Reported) [place]-3/Dha/Epa/Fish Oil 1 Each Capsule.dr, 4,000 MG PO BID, (Reported) TAKES 4 (1000MG) CAPSULES TWICE DAILY Omeprazole 20 Mg Capsule.dr, 20 MG PO BID, (Reported) Prednisone 10 Mg Tab, 10 MG PO DAILY, (Reported) LAST FILLED 08/01/16 #30 Propranolol HCl 60 Mg Tablet, 60 MG PO BID, (Reported) Venlafaxine HCl 150 Mg Cap.er.24h, 150 MG PO DAILY, (Reported) Past Vprcydr-Bdblyx-Frayzj Hx Patient Social History Alcohol Use: Denies Use Recreational Drug Use: No Type Used: Cigarettes Recent Foreign Travel: No Contact w/Someone Who Travel: No Recent Infectious Disease Expo: No Recent Hopitalizations: Yes (PANCREATITIS) Immunizations Up To Date Tetanus Booster (TDap): Unknown PED Vaccines UTD: Yes Date of Pneumonia Vaccine: Jan 05, 2011 Date of Influenza Vaccine: Feb 06, 2016 Seasonal Allergies Seasonal Allergies: No Surgeries HX Surgeries: Yes (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 Genitourinary Hx Genitourinary Disorders: No Gastrointestinal Hx Gastrointestinal Disorders: No Gastrointestinal Disorders: Pancreatitis Musculoskeletal Hx Musculoskeletal Disorders: Yes Musculoskeletal Disorders: Fibromyalgia Endocrine Hx Endocrine Disorders: Yes Endocrine Disorders: Lupus HEENT HX ENT Disorders: No HEENT Disorders: Chronic Ear Infection Loss of Vision: Denies Cancer Hx Cancer: Yes Cancer: Pancreatic Psychosocial Hx Psychiatric Problems: No Behavioral Health Disorders: Depression Integumentary HX Skin/Integumentary Disorder: No Blood Transfusions Hx Blood Disorders: Yes Adverse Reaction to a Blood Tr: No Family Medical History Significant Family History: Heart Disease, CAD Under 55 Years Old Family Medial History: Alzheimer's disease 19 MOTHER Cardiovascular disease 19 MOTHER Diabetes mellitus 19 MOTHER FH: CHF (congestive heart failure) 19 MOTHER Hypertension 19 MOTHER Kidney disease 19 MOTHER Myocardial infarction 19 MOTHER Review of Systems-General ROS-Unable to Obtain: patient unable to communicate Physical Exam-General Problems Physical Exam Vital Signs Vital Sign - Last 12Hours 09/05/16 20:12 Temp 98.6 Pulse 137 Resp 36 B/P (MAP) 53/28 Pulse Ox 89 O2 Delivery Nonrebreather O2 Flow Rate 10.00 Capillary Refill : Less Than 3 Seconds General Appearance: moderate distress (dusky peters appearace) HEENT: other (no obvious head trauma) Neck: full range of motion Respiratory: other (tachypnic) Cardiovascular: tachycardia Gastrointestinal: soft Extremities: other (moves all 4 extremities) Neurologic/Psychiatric: No alert, No normal mood/affect, No oriented x 3 Skin: other (peters color) Data Review Labs Laboratory Tests 09/05/16 20:22: White Blood Count 6.5, Red Blood Count 4.82, Hemoglobin 14.1, Hematocrit 43, Mean Corpuscular Volume 89, Mean Corpuscular Hemoglobin 29, Mean Corpuscular Hemoglobin Concent 33, Red Cell Distribution Width 12.9, Platelet Count 330, Mean Platelet Volume 11.9H, Neutrophils (%) (Auto) , Lymphocytes (%) (Auto) , Monocytes (%) (Auto) , Eosinophils (%) (Auto) , Basophils (%) (Auto) , Neutrophils # (Auto) , Lymphocytes # (Auto) , Monocytes # (Auto) , Eosinophils # (Auto) , Basophils # (Auto) , Neutrophils % (Manual) 30, Lymphocytes % (Manual ) 40, Monocytes % (Manual) 5, Eosinophils % (Manual) 0, Basophils % (Manual) 0, Metamyelocytes % 2, Band Neutrophils 23, Toxic Granulation 2+, Blood Morphology Comment NORMAL, Prothrombin Time 17.3H, INR Comment 1.4, Activated Partial Thromboplast Time 30, Sodium Level 140, Potassium Level 3.5L, Chloride Level 102 , Carbon Dioxide Level 16L, Anion Gap 22H, Blood Urea Nitrogen 36H, Creatinine 2.16H, Estimat Glomerular Filtration Rate 24, BUN/Creatinine Ratio 17, Glucose Level 315H, Calcium Level 11.0H, Magnesium Level 2.3, Total Bilirubin 0.8, Aspartate Amino Transf (AST/SGOT) 68H, Alanine Aminotransferase (ALT/SGPT) 47, Alkaline Phosphatase 60, Total Creatine Kinase 1153H, Creatine Kinase MB 10.9*H , Troponin I < 0.30, B-Type Natriuretic Peptide 903.0H, Total Protein 7.7, Albumin 3.7, TSH Walker Testing 1.94, Acetaminophen Level 21, Serum Alcohol < 10 09/05/16 20:34: Urine Color AMBERH, Urine Clarity SLIGHTLY CLOUDY, Urine pH 5, Urine Specific [place] 1.025H, Urine Protein 3+H, Urine Glucose (UA) 1+H, Urine Ketones 1+H, Urine Nitrite NEGATIVE, Urine Bilirubin NEGATIVE, Urine Urobilinogen 4H, Urine Leukocyte Esterase 3+H, Urine RBC (Auto) 3+H, Urine RBC 10-25H, Urine WBC >100H , Urine Squamous Epithelial Cells 2-5, Urine Crystals PRESENTH, Urine Amorphous Sediment MOD KYLAH URATESH, Urine Bacteria LARGEH, Urine Casts NONE, Urine Mucus NEGATIVE, Urine Culture Indicated YES, Urine Opiates Screen NEGATIVE, Urine Oxycodone Screen NEGATIVE, Urine Methadone Screen NEGATIVE, Urine Propoxyphene Screen NEGATIVE, Urine Barbiturates Screen NEGATIVE, Ur Tricyclic Antidepressants Screen POSITIVEH, Urine Phencyclidine Screen NEGATIVE, Urine Amphetamines Screen NEGATIVE, Urine Methamphetamines Screen NEGATIVE, Urine Benzodiazepines Screen NEGATIVE, Urine Cocaine Screen NEGATIVE, Urine Cannabinoids Screen NEGATIVE 09/05/16 21:19: Blood Gas Puncture Site LEFT FEMORAL, Blood Gas Patient Temperature 98.6, Arterial Blood pH 7.14*L, Arterial Blood Partial Pressure CO2 59H, Arterial Blood Partial Pressure O2 48L, Arterial Blood HCO3 19L, Arterial Blood Total CO2 21.0, Arterial Blood Oxygen Saturation 68L, Arterial Blood Base Excess -8.4L , Anmol Test NA, Blood Gas Ventilator Setting NO, Blood Gas Inspired Oxygen 15L Assessment/Plan Assessment/Plan Assessment/Plan septic shock, uti tachycardia s/p cardiopulmonary resuscitation hypotension patient needing central line placed. consent was obtained and central line placed right IJ using u/s guidance. chest x ray checked will sign off call if needed. SANDRINE KAPADIA DO Sep 05, 2016 22:40
[2016-09-05] MEDS ORDERED: ROCURONIUM 50 MG/5 ML (ZEMURON) VIAL IV ONE (23:00)
[2016-09-05] MEDS ORDERED: SUCCINYLCHOLINE INJ 100 MG/5 ML SYR INJ ONE (23:00)
[2016-09-05] MEDS ORDERED: ETOMIDATE IV SOLN 20 MG/10 ML VIAL IV ONE (23:00)
--- NOTE | 2016-09-05 23:05 | Progress Note-Standard ---
Standard Progress Note Final Diagnosis Consulted per Dr. Richardson for intubation and a-line placement. Pt labored breathing with nonrebreather O2 mask. Etomidate 20 mg IV, Sux 60 mg IV, 7.0 ETT placed x1 attempt throat not clear. Large food particles present. Positive ETCO2. Rocuronium 50 mg IV, Neosynephrine 3.5 mg IV given in total thru out intubation and a-line placement. 20 gauge arterial cath to right femoral artery earnestine well. Report to ED nurses. CHRISTEN ANDERSON CRNA Sep 05, 2016 23:05
[2016-09-05 23:25] VITALS: BP 83/74
[2016-09-05] MEDS ORDERED: fentaNYL INJECTION 100 MCG/2 ML AMP ONE (23:44)
[2016-09-05 23:45] VITALS: BP 106/56
[2016-09-05] MEDS ORDERED: D5 1/2 NS W/KCL 20 MEQ/L 1,000 ML IV SCH (23:45)
[2016-09-05] MEDS ORDERED: SODIUM BICARB 8.4% 50 MEQ/50 ML (ABBOTT) SYR ONE (23:46)
[2016-09-05] MEDS ORDERED: ACETAMINOPHEN 650 MG SUPP (TYLENOL) ONE (23:53)
[2016-09-05] MEDS ORDERED: D5 1/2 NS W/KCL 10 MEQ/L 1,000 ML IV ONE (23:59)
[2016-09-06] VITALS (46 sets, daily range): BP systolic 87–153; BP diastolic 24–94
[2016-09-06] MEDS ORDERED: inSUlin (REGULAR) HUMAN 1 UNIT/0.01 ML (CHARGE PER UNIT) SC SCH
[2016-09-06] MEDS ORDERED: POTASSIUM CL 10MEQ/50ML IVPB 100 ML IV ONE
[2016-09-06] MEDS ORDERED: NS (IVPB) 50 ML ONE ×2 (00:12→04:59)
[2016-09-06] MEDS ORDERED: VASOPRESSIN INJECTION 20 UNIT/ML VIAL ONE (00:12)
[2016-09-06] MEDS ORDERED: HYDROCORTISONE 100 MG/2 ML (Solu-CORTEF) VIAL ONE (00:12)
[2016-09-06] MEDS ORDERED: fentaNYL INJECTION 100 MCG/2 ML AMP IV ONE (00:15)
[2016-09-06] MEDS ORDERED: SODIUM BICARB 8.4% 50 MEQ/50 ML (ABBOTT) SYR IV ONE ×4 (00:15→03:45)
[2016-09-06] MEDS ORDERED: ACETAMINOPHEN 650 MG SUPP (TYLENOL) PR ONE ×2 (00:15→03:15)
[2016-09-06 00:40] LABS: ABG BASE EXCESS -4.2 MMOL/L (-2.5-2.5); ABG HCO3 24 MMOL/L (23-27); ABG OXYGEN SATURATION 91 % (94-100); ABG PO2 83 MMHG (79-93); ABG TCO2 25.8 MMOL/L (21.0-31.0)
[2016-09-06 00:43] LABS: ABG PCO2 78 MMHG (35-45); ABG PH 7.12 (7.37-7.43); ALLENS TEST YES-POS
[2016-09-06] MEDS: POTASSIUM CL 10 MEQ/50 ML IVPB (PRE-MIX) IV SCH ×2 (00:46→00:49)
[2016-09-06] MEDS ORDERED: NS (IVPB) 100 ML ONE (01:16)
[2016-09-06] MEDS ORDERED: fentaNYL (OMNICELL DRIP KIT ONLY) 250 MCG/5 ML AMP ONE (01:16)
[2016-09-06] MEDS ORDERED: PROPOFOL DRIP (ICU) 100 ML IV ONE (01:17)
[2016-09-06] MEDS ORDERED: VANCOMYCIN 1500 MG/NS 500 ML IVPB IV ONE ×2 (01:30)
[2016-09-06] MEDS ORDERED: fentaNYL INJECTION 1,250 MCG in NS (IVPB) 225 ML IV SCH (01:30)
[2016-09-06] MEDS: NOREPINEPHRINE 4 MG in D5W 250 ML (IVPB) 250 ML IV SCH ×7 (01:32→19:17)
[2016-09-06] MEDS: VASOPRESSIN INJECTION 20 UNIT in NS (IVPB) 50 ML IV SCH ×3 (01:33→16:27)
[2016-09-06] MEDS ORDERED: VANCOMYCIN 1000 MG/VIAL ONE (01:44)
[2016-09-06] MEDS ORDERED: VANCOMYCIN 500 MG/VIAL IV ONE (01:44)
[2016-09-06] MEDS ORDERED: NS IV 500 ML 500 ML ONE (01:44)
[2016-09-06] MEDS: PANTOPRAZOLE 40 MG/10 ML (PROTONIX) VIAL IV SCH ×2 (01:59→16:34)
[2016-09-06] MEDS: CHLORHEXIDINE 0.12% SOLN 15 ML (PERIDEX) UDC PO SCH ×3 (01:59→21:28)
[2016-09-06] MEDS ORDERED: KETOROLAC 30 MG/ML VIAL ONE (02:08)
[2016-09-06] MEDS: NS IV 1000 ML 1,000 ML IV SCH ×5 (02:26→16:37)
[2016-09-06 02:29] LABS: ABG BASE EXCESS -4.2 MMOL/L (-2.5-2.5); ABG HCO3 22 MMOL/L (23-27); ABG OXYGEN SATURATION 98 % (94-100); ABG PCO2 58 MMHG (35-45); ABG PO2 117 MMHG (79-93); ABG TCO2 23.4 MMOL/L (21.0-31.0)
[2016-09-06 02:30] LABS: ABG PH 7.22 (7.37-7.43); ALLENS TEST YES-POS; PATIENT TEMP 103.1
[2016-09-06] MEDS ORDERED: ACETAMINOPHEN 650 MG SUPP (TYLENOL) ONE (02:31)
[2016-09-06 03:44] LABS: MEAN CORPUSCULAR HEMOGLOBIN 29 PG (25-34); MEAN CORPUSCULAR HGB CONC 33 G/DL (32-36); MEAN CORPUSCULAR VOLUME 89 FL (80-99); MEAN PLATELET VOLUME 12.2 FL (7.4-10.4); PLATELET COUNT 259 10^3/uL (130-400); RED BLOOD COUNT 4.42 10^6/uL (4.35-5.85); RED CELL DISTRIBUTION WIDTH 13.1 % (10.0-14.5); WHITE BLOOD COUNT 2.5 10^3/uL (4.3-11.0)
[2016-09-06 03:56] LABS: CALCIUM 7.9 MG/DL (8.5-10.1); CREATININE SERUM 2.27 MG/DL (0.60-1.30); POTASSIUM 3.5 MMOL/L (3.6-5.0)
[2016-09-06] MEDS: inSUlin ASPART (NovoLOG) 1 UNIT/0.01 ML (CHARGE PER UNIT) SC SCH ×5 (04:12→20:28)
[2016-09-06] MEDS ORDERED: CALCIUM GLUC. 10% 4.65 MEQ/10 ML VIAL ONE (04:56)
[2016-09-06 04:57] LABS: ABG BASE EXCESS -4.9 MMOL/L (-2.5-2.5); ABG HCO3 21 MMOL/L (23-27); ABG OXYGEN SATURATION 99 % (94-100); ABG PCO2 54 MMHG (35-45); ABG PO2 238 MMHG (79-93); ABG TCO2 22.8 MMOL/L (21.0-31.0)
[2016-09-06] MEDS ORDERED: ALBUMIN 5% 12.5 GM/250 ML 500 ML IV ONE (04:57)
[2016-09-06] MEDS ORDERED: CALCIUM GLUCONATE IV ONE (05:00)
[2016-09-06] MEDS ORDERED: NS IV ONE (05:00)
[2016-09-06 05:01] LABS: ABG PH 7.23 (7.37-7.43); ALLENS TEST YES-POS; PATIENT TEMP 100.5
[2016-09-06 05:23] LABS: BASOPHILS % (AUTO) 0 % (0-10); EOSINOPHILS # (AUTO) 0.1 10^3/uL (0.0-0.3); EOSINOPHILS % (AUTO) 3 % (0-10); LYMPHOCYTES # (AUTO) 0.7 X 10^3 (1.0-4.0); LYMPHOCYTES % (AUTO) 26 % (12-44); MEAN CORPUSCULAR HEMOGLOBIN 30 PG (25-34); MEAN CORPUSCULAR HGB CONC 33 G/DL (32-36); MEAN CORPUSCULAR VOLUME 90 FL (80-99); MEAN PLATELET VOLUME 11.8 FL (7.4-10.4); MONOCYTES # (AUTO) 0.2 X 10^3 (0.0-1.0); MONOCYTES % (AUTO) 7 % (0-12); NEUTROPHILS # (AUTO) 1.6 X 10^3 (1.8-7.8); NEUTROPHILS % (AUTO) 64 % (42-75); PLATELET COUNT 211 10^3/uL (130-400); RED BLOOD COUNT 4.37 10^6/uL (4.35-5.85); RED CELL DISTRIBUTION WIDTH 13.2 % (10.0-14.5); WHITE BLOOD COUNT 2.6 10^3/uL (4.3-11.0)
[2016-09-06 05:43] LABS: ALBUMIN 2.6 G/DL (3.2-4.5); ANION GAP 17 MMOL/L (5-14); BLOOD UREA NITROGEN 44 MG/DL (7-18); BUN/CREATININE RATIO 19; CALCIUM 8.5 MG/DL (8.5-10.1); CARBON DIOXIDE 18 MMOL/L (21-32); CHLORIDE 106 MMOL/L (98-107); CREATINE KINASE 1607 U/L (29-168); CREATININE SERUM 2.36 MG/DL (0.60-1.30); GFR ESTIMATED 21; GLUCOSE 246 MG/DL (70-105); MAGNESIUM 2.1 MG/DL (1.8-2.4); PHOSPHORUS 5.5 MG/DL (2.3-4.7); POTASSIUM 3.1 MMOL/L (3.6-5.0); SODIUM 141 MMOL/L (135-145)
[2016-09-06 05:48] LABS: TROPONIN I < 0.30 NG/ML (<0.30)
[2016-09-06] MEDS ORDERED: ALBUMIN 5% 12.5 GM/250 ML 250 ML IV SCH (06:00)
[2016-09-06] MEDS: POTASSIUM CL 10MEQ/50ML IVPB 50 ML IV SCH ×5 (06:05→07:15)
[2016-09-06] MEDS: MAGNESIUM 1 GM/100 ML IVPB 100 ML IV SCH (06:06)
[2016-09-06] MEDS: HYDROCORTISONE 100 MG/2 ML (Solu-CORTEF) VIAL IV SCH ×3 (06:13→18:32)
[2016-09-06] MEDS ORDERED: RT-ALBUTEROL/IPRATROPIUM 3 ML (DUONEB) VIAL INH PRN (06:45)
[2016-09-06] MEDS ORDERED: NS IV 500 ML 500 ML IV SCH (06:49)
--- NOTE | 2016-09-06 06:55 | Pulmonary Consultation ---
History of Present Illness History of Present Illness Date of Consultation 09/06/16 06:50 Date of Admission History of Present Illness 56yo presented to ED via EMS after being found unresponsive by family. Pt was found to be in acute respiratory failure, intubated and placed on ventilator. She was found to be in severe sepsis probably from UTI. SHe is hypotensive and requiring Levophed and vasopressin. No prior episodes like this. Unable to obtain ROS secondary to patient being sedated on ventilator. Allergies and Home Medications Allergies Coded Allergies: ciprofloxacin (Verified Allergy, Unknown, 08/24/14) naproxen (Verified Allergy, Unknown, 08/24/14) HEADACHE ondansetron (Unverified Allergy, Unknown, 03/17/14) Home Medications Acetaminophen 325 Mg Tablet, 1,000 MG PO Q6H PRN for PAIN, (Reported) Aspirin 81 Mg Tabec, 81 MG PO DAILY, (Reported) Atorvastatin Calcium 40 Mg Tablet, 40 MG PO HS, #30 Ref 4 Prescribed by: EDUARDO OVALLE on 05/17/14 1429 Cephalexin Monohydrate 500 Mg Capsule, 1 EACH PO TID, #21 Prescribed by: DEJA BAKER on 08/24/14 2225 Cyclobenzaprine HCl 10 Mg Tablet, 10 MG PO TID PRN for SPASMS, #10 Prescribed by: CHILO LOVE on 09/03/16 0806 Epinephrine 0.3 Mg/0.3 Ml Auto.injct, 0.3 MG IJ UD PRN for SHORTNESS OF BREATH, #1 Ref 0 Prescribed by: MACKENZIE CONNOR on 05/26/162012 Famotidine 20 Mg Tablet, 20 MG PO BID, #60 Ref 0 Prescribed by: MACKENZIE CONNOR on 12/15/15 1916 Famotidine 20 Mg Tablet, 20 MG PO BID, #20 Ref 0 Prescribed by: MACKENZIE CONNOR on 05/26/162012 Hydrocodone Bit/Acetaminophen 1 Each Tablet, Unknown Dose PO UD, (Reported) Loratadine 10 Mg Capsule, 10 MG PO DAILY, (Reported) [place]-3/Dha/Epa/Fish Oil 1 Each Capsule.dr, 4,000 MG PO BID, (Reported) TAKES 4 (1000MG) CAPSULES TWICE DAILY Prednisone 20 Mg Tab, 40 MG PO DAILY, #8 Ref 0 Prescribed by: MACKENZIE CONNOR on 05/26/162012 Propranolol HCl 60 Mg Tablet, 60 MG PO BID, #60 (Reported) Venlafaxine HCl 75 Mg Cap.er.24h, 75 MG PO BID, (Reported) Past Pmqzgss-Niespz-Wcxkvx Hx Patient Social History Alcohol Use: Denies Use Recreational Drug Use: No Type Used: Cigarettes Recent Foreign Travel: No Contact w/Someone Who Travel: No Recent Infectious Disease Expo: No Recent Hopitalizations: Yes (PANCREATITIS) Physical Abuse Screen: No Sexual Abuse: No Immunizations Up To Date Tetanus Booster (TDap): Unknown PED Vaccines UTD: Yes Date of Pneumonia Vaccine: Jan 05, 2011 Date of Influenza Vaccine: Feb 06, 2016 Seasonal Allergies Seasonal Allergies: No Surgeries HX Surgeries: Yes (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, Ovarian Cyst [employer] DO[employer] History: Hysterectomy, Menopausal Genitourinary Hx Genitourinary Disorders: No Gastrointestinal Hx Gastrointestinal Disorders: No Gastrointestinal Disorders: Pancreatitis Musculoskeletal Hx Musculoskeletal Disorders: Yes Musculoskeletal Disorders: Fibromyalgia Endocrine Hx Endocrine Disorders: Yes Endocrine Disorders: Lupus HEENT HX ENT Disorders: No HEENT Disorders: Chronic Ear Infection Loss of Vision: Denies Cancer Hx Cancer: Yes Cancer: Pancreatic Psychosocial Hx Psychiatric Problems: No Behavioral Health Disorders: Depression Integumentary HX Skin/Integumentary Disorder: No Blood Transfusions Hx Blood Disorders: Yes Adverse Reaction to a Blood Tr: No Family Medical History Significant Family History: Heart Disease, CAD Under 55 Years Old Family Medial History: Alzheimer's disease 19 MOTHER Cardiovascular disease 19 MOTHER Diabetes mellitus 19 MOTHER FH: CHF (congestive heart failure) 19 MOTHER Hypertension 19 MOTHER Kidney disease 19 MOTHER Myocardial infarction 19 MOTHER Exam Exam Vital Signs Date Time Temp Pulse Resp B/P (MAP) Pulse Ox O2 Delivery O2 Flow Rate FiO2 09/06/16 06:00 110 23 121/82 99 100.00 09/06/16 05:34 98.4 09/06/16 05:00 124 23 137/77 99 100.00 09/06/16 04:25 101.8 09/06/16 04:20 122 24 100 09/06/16 04:00 129 23 96/57 100.00 09/06/16 04:00 98 100.00 09/06/16 03:48 103.4 09/06/16 03:45 135 24 98/76 100.00 09/06/16 03:30 138 23 153/71 100.00 09/06/16 03:15 138 30 132/94 100.00 09/06/16 03:00 152 26 88/42 98 100.00 09/06/16 03:00 106.1 09/06/16 02:49 105.2 09/06/16 02:45 151 16 116/84 95 100.00 09/06/16 02:30 105.2 09/06/16 02:30 154 22 139/65 96 100.00 09/06/16 02:19 103.1 09/06/16 02:15 152 13 104/93 95 100.00 09/06/16 02:10 103.1 09/06/16 02:00 154 10 106/34 94 100.00 09/06/16 01:59 154 24 97 100 09/06/16 01:45 146 24 123/24 96 100.00 09/06/16 01:45 100.5 09/06/16 01:31 146 09/06/16 01:30 146 23 112/76 98 100.00 09/06/16 01:15 144 16 138/83 100 100.00 09/06/16 01:03 100 09/06/16 01:00 145 09/06/16 01:00 146 24 111/65 87 100.00 09/06/16 00:45 141 21 120/71 92 100.00 09/06/16 00:44 102.5 09/06/16 00:30 102.0 09/06/16 00:30 138 22 109/73 90 100.00 09/06/16 00:15 134 21 98/62 88 100.00 09/06/16 00:00 130 18 94/58 91 100.00 09/05/16 23:45 129 13 106/56 97 100.00 09/05/16 23:25 122 15 96 100 09/05/16 23:22 114 12 90 09/05/16 22:42 151 12 97 100 09/05/16 22:19 147 23 97 100 09/05/16 20:12 98.6 137 36 53/28 89 Non Rebreather 10.00 09/05/16 20:12 89 Nonrebreather 10.00 I & O 09/06/16 07:00 Intake Total 3199 ml Output Total 450 ml Balance 2749 ml General Appearance: No Apparent Distress (sedated on vent) Respiratory: Decreased Breath Sounds Cardiovascular: No Edema, No Gallop, No Murmur, Tachycardia Capillary Refill: Less Than 3 Seconds Gastrointestinal: normal bowel sounds, soft, no organomegaly, no pulsatile mass Skin: Normal Color, Cool Lymphatic: No Adenopathy Results Lab Laboratory Tests 09/05/16 20:22 09/06/16 03:30 09/06/16 05:15 Assessment/Plan Assessment/Plan Severe sepsis with UTI -Continue current Abx -hardy cultures pending CT of head is reported as "Mass effect with midline shift secondary to hemorrhage or Extras-axial fluid collections" -I DISCUSSED THIS WITH DR. FLORES AND HE STATES THERE IS A TYPO IN REPORT. CT OF HEAD IS NEGATIVE AND REPORT SHOULD READ NO "Mass effect with midline shift secondary to hemorrhage or Extras-axial fluid collections" Septic shock -pt is on levophed at 20mcg and vasopressin -Increase IVF Acute respiratory failure -titrate oxygen down ARF with oliguria ( pt has only had 75 cc of urine output all night) -Will give liter bolus on NS and increase IVF to 250cc/hr Possible serotonin syndrome (pt is on Effexor at home) temp is now down form 106 to 98.9 metabolic lactic acidosis -Bicarb given x 6 amps last night Hypokalemia -replace 255 60 min was spent with patient, family, and medical team discussing case. Clinical Quality Measures DVT/VTE Risk/Contraindication: Risk Factor Score Per Nursin RFS Level Per Nursing on Admit: 4+=Very High GEOFF HARDIN DO Sep 06, 2016 06:55
--- NOTE | 2016-09-06 07:34 | Diagnostic Imaging Report ---
Supine portable radiograph of the chest. INDICATION: Line placement. FINDINGS: There is interval intubation compared to the previous exam with good position of the ET tube. There is also insertion of the right internal jugular line with the tip of the catheter at the proximal right atrium. There is suggestion of left basilar infiltrates. Mild right perihilar infiltrate is also seen. This appears worse compared to prior exam performed 2 hours earlier. There is also suggestion of a small right effusion. The heart size is prominent. IMPRESSION: Worsening left basilar and right perihilar infiltrates with a small left effusion. Dictated by: Dictated on workstation # [id number]
--- NOTE | 2016-09-06 07:57 | Diagnostic Imaging Report ---
INDICATION: Sepsis. Exam compared to 09/05/2016. FINDINGS: Technique and body habitus limits exam sensitivity. Given differing technique and film penetration bilateral parenchymal opacities are not convincingly changed and remain greatest at the level of the left lower lobe. An ET tube tip projects in good alignment as does a stable right IJ. IMPRESSION: Bilateral infiltrates and support apparatus not convincingly changed when technique taken into account. Dictated by: Dictated on workstation # [id number]
--- NOTE | 2016-09-06 08:37 | Consultation-Cardiology ---
HPI-Cardiology Cardiology Consultation: Date of Consultation 09/06/16 Date of Admission 09/05/16 Attending Physician Danielle Vuong DO Admitting Physician Sheila,[facility] Consulting Physician DOTTY GOSS MD, FACP, FACC, [facility], CCDS HPI: Chief Complaint: "Quit breathing," according to family present at scene 56 yo woman with medical issues as noted below, heard to be short of breath over the phone by her daughter, prompting the daughter to go to her house. The daughter states to me that she found her to be greenish-blue and struggling for breath. She called 911 and started to get her ready for transport to the hosp. The patient quit breathing. The EMT told the pt's daughter to provide chest compression and [id number] breathing, which she did. She did not feel for the patient's pulse. A few min later the pt did waken but remained confused and lethargic and was brought to the ER by EMT. She did not report cp. No other h/o is obtainable at this time. The patient is intubated, sedated and on [facility] ventilation Review of Systems-Cardiology Review of Systems Constitutional: other (A detailed review of systems is not possible at this time due to patient's intubated and sedated state. To the extent a ROS could be obtained is described under HPI) DZU-Djssbg-Chisod Hx Patient Social History Alcohol Use: Denies Use Recreational Drug Use: No Type Used: Cigarettes Recent Foreign Travel: No Recent Infectious Disease Expo: No Hospitalization with Isolation: Denies Physical Abuse Screen: No Sexual Abuse: No Immunizations Up To Date Tetanus Booster (TDap): Unknown Date of Pneumonia Vaccine: Jan 05, 2011 Date of Influenza Vaccine: Feb 06, 2016 Past Medical History PMH As described under Assessment. Family Medical History Family History: Alzheimer's disease 19 MOTHER Cardiovascular disease 19 MOTHER Diabetes mellitus 19 MOTHER FH: CHF (congestive heart failure) 19 MOTHER Hypertension 19 MOTHER Kidney disease 19 MOTHER Myocardial infarction 19 MOTHER Allergies and Home Medications Allergies Coded Allergies: ciprofloxacin (Verified Allergy, Unknown, 08/24/14) naproxen (Verified Allergy, Unknown, 08/24/14) HEADACHE ondansetron (Unverified Allergy, Unknown, 03/17/14) Home Medications Acetaminophen 325 Mg Tablet, 1,000 MG PO Q6H PRN for PAIN, (Reported) Aspirin 81 Mg Tabec, 81 MG PO DAILY, (Reported) Atorvastatin Calcium 40 Mg Tablet, 40 MG PO HS, #30 Ref 4 Prescribed by: EDUARDO OVALLE on 05/17/14 1429 Cephalexin Monohydrate 500 Mg Capsule, 1 EACH PO TID, #21 Prescribed by: DEJA BAKER on 08/24/14 2225 Cyclobenzaprine HCl 10 Mg Tablet, 10 MG PO TID PRN for SPASMS, #10 Prescribed by: CHILO LOVE on 09/03/16 0806 Epinephrine 0.3 Mg/0.3 Ml Auto.injct, 0.3 MG IJ UD PRN for SHORTNESS OF BREATH, #1 Ref 0 Prescribed by: MACKENZIE CONNOR on 05/26/162012 Famotidine 20 Mg Tablet, 20 MG PO BID, #60 Ref 0 Prescribed by: MACKENZIE CONNOR on 12/15/15 1916 Famotidine 20 Mg Tablet, 20 MG PO BID, #20 Ref 0 Prescribed by: MACKENZIE CONNOR on 05/26/162012 Hydrocodone Bit/Acetaminophen 1 Each Tablet, Unknown Dose PO UD, (Reported) Loratadine 10 Mg Capsule, 10 MG PO DAILY, (Reported) [place]-3/Dha/Epa/Fish Oil 1 Each Capsule.dr, 4,000 MG PO BID, (Reported) TAKES 4 (1000MG) CAPSULES TWICE DAILY Prednisone 20 Mg Tab, 40 MG PO DAILY, #8 Ref 0 Prescribed by: MACKENZIE CONNOR on 05/26/162012 Propranolol HCl 60 Mg Tablet, 60 MG PO BID, #60 (Reported) Venlafaxine HCl 75 Mg Cap.er.24h, 75 MG PO BID, (Reported) Physical Exam-Cardiology Physical Exam Vital Signs/I&O Vital Sign - Last 12Hours 09/05/16 09/05/16 09/05/16 09/05/16 22:19 22:42 23:22 23:25 Pulse 147 151 114 122 Resp 23 12 12 15 Pulse Ox 97 97 90 96 FiO2 100 100 100 09/05/16 09/06/16 09/06/16 09/06/16 23:45 00:00 00:15 00:30 Pulse 129 130 134 138 Resp 13 18 21 22 B/P (MAP) 106/56 94/58 98/62 109/73 Pulse Ox 97 91 88 90 O2 Flow Rate 100.00 100.00 100.00 100.00 09/06/16 09/06/16 09/06/16 09/06/16 00:30 00:44 00:45 01:00 Temp 102.0 102.5 Pulse 141 146 Resp 21 24 B/P (MAP) 120/71 111/65 Pulse Ox 92 87 O2 Flow Rate 100.00 100.00 09/06/16 09/06/16 09/06/16 09/06/16 01:00 01:03 01:15 01:30 Pulse 145 144 146 Resp 16 23 B/P (MAP) 138/83 112/76 Pulse Ox 100 98 O2 Flow Rate 100.00 100.00 FiO2 100 09/06/16 09/06/16 09/06/16 09/06/16 01:31 01:45 01:45 01:59 Temp 100.5 Pulse 146 146 154 Resp 24 24 B/P (MAP) 123/24 Pulse Ox 96 97 O2 Flow Rate 100.00 FiO2 100 09/06/16 09/06/16 09/06/16 09/06/16 02:00 02:10 02:15 02:19 Temp 103.1 103.1 Pulse 154 152 Resp 10 13 B/P (MAP) 106/34 104/93 Pulse Ox 94 95 O2 Flow Rate 100.00 100.00 09/06/16 09/06/16 09/06/16 09/06/16 02:30 02:30 02:45 02:49 Temp 105.2 105.2 Pulse 154 151 Resp 22 16 B/P (MAP) 139/65 116/84 Pulse Ox 96 95 O2 Flow Rate 100.00 100.00 09/06/16 09/06/16 09/06/16 09/06/16 03:00 03:00 03:15 03:30 Temp 106.1 Pulse 152 138 138 Resp 26 30 23 B/P (MAP) 88/42 132/94 153/71 Pulse Ox 98 O2 Flow Rate 100.00 100.00 100.00 09/06/16 09/06/16 09/06/16 09/06/16 03:45 03:48 04:00 04:00 Temp 103.4 Pulse 135 129 Resp 24 23 B/P (MAP) 98/76 96/57 Pulse Ox 98 O2 Flow Rate 100.00 100.00 100.00 09/06/16 09/06/16 09/06/16 09/06/16 04:20 04:25 05:00 05:34 Temp 101.8 98.4 Pulse 122 124 Resp 24 23 B/P (MAP) 137/77 Pulse Ox 99 O2 Flow Rate 100.00 FiO2 100 09/06/16 09/06/16 06:00 06:32 Pulse 110 114 Resp 23 24 B/P (MAP) 121/82 Pulse Ox 99 100 O2 Flow Rate 100.00 FiO2 60 Capillary Refill : Less Than 3 Seconds Constitutional: other (Intubated, sedated, on mec vent, unresponsive to verbal stimuli) HEENT: PERRL, other (endotracheal tube in place) Neck: carotid pulses are 2 + bilaterally, with good upstrokes Respiratory: other (on mech vent; fair air entry; bs diminished at the bases) Cardiovascular: regular rate-rhythm, S1 and S2, systolic murmur (soft SEBAS at card base) Gastrointestinal: soft, No guarding, audible bowel sounds Extremities: No cyanosis, No significant edema Neurologic/Psychiatric: other (currently intubated and sedated and not able to cooperate with a neuro exam) Skin: No rash on exposed areas, No ulcerations on exposed areas Data Review Labs Laboratory Tests 09/05/16 20:22: White Blood Count 6.5, Red Blood Count 4.82, Hemoglobin 14.1, Hematocrit 43, Mean Corpuscular Volume 89, Mean Corpuscular Hemoglobin 29, Mean Corpuscular Hemoglobin Concent 33, Red Cell Distribution Width 12.9, Platelet Count 330, Mean Platelet Volume 11.9H, Neutrophils (%) (Auto) , Lymphocytes (%) (Auto) , Monocytes (%) (Auto) , Eosinophils (%) (Auto) , Basophils (%) (Auto) , Neutrophils # (Auto) , Lymphocytes # (Auto) , Monocytes # (Auto) , Eosinophils # (Auto) , Basophils # (Auto) , Neutrophils % (Manual) 30, Lymphocytes % (Manual ) 40, Monocytes % (Manual) 5, Eosinophils % (Manual) 0, Basophils % (Manual) 0, Metamyelocytes % 2, Band Neutrophils 23, Toxic Granulation 2+, Blood Morphology Comment NORMAL, Prothrombin Time 17.3H, INR Comment 1.4, Activated Partial Thromboplast Time 30, Sodium Level 140, Potassium Level 3.5L, Chloride Level 102 , Carbon Dioxide Level 16L, Anion Gap 22H, Blood Urea Nitrogen 36H, Creatinine 2.16H, Estimat Glomerular Filtration Rate 24, BUN/Creatinine Ratio 17, Glucose Level 315H, Calcium Level 11.0H, Magnesium Level 2.3, Total Bilirubin 0.8, Aspartate Amino Transf (AST/SGOT) 68H, Alanine Aminotransferase (ALT/SGPT) 47, Alkaline Phosphatase 60, Total Creatine Kinase 1153H, Creatine Kinase MB 10.9*H , Troponin I < 0.30, B-Type Natriuretic Peptide 903.0H, Total Protein 7.7, Albumin 3.7, TSH Upson Testing 1.94, Acetaminophen Level 21, Serum Alcohol < 10 09/05/16 20:34: Urine Color AMBERH, Urine Clarity SLIGHTLY CLOUDY, Urine pH 5, Urine Specific [place] 1.025H, Urine Protein 3+H, Urine Glucose (UA) 1+H, Urine Ketones 1+H, Urine Nitrite NEGATIVE, Urine Bilirubin NEGATIVE, Urine Urobilinogen 4H, Urine Leukocyte Esterase 3+H, Urine RBC (Auto) 3+H, Urine RBC 10-25H, Urine WBC >100H , Urine Squamous Epithelial Cells 2-5, Urine Crystals PRESENTH, Urine Amorphous Sediment MOD KYLAH URATESH, Urine Bacteria LARGEH, Urine Casts NONE, Urine Mucus NEGATIVE, Urine Culture Indicated YES, Urine Opiates Screen NEGATIVE, Urine Oxycodone Screen NEGATIVE, Urine Methadone Screen NEGATIVE, Urine Propoxyphene Screen NEGATIVE, Urine Barbiturates Screen NEGATIVE, Ur Tricyclic Antidepressants Screen POSITIVEH, Urine Phencyclidine Screen NEGATIVE, Urine Amphetamines Screen NEGATIVE, Urine Methamphetamines Screen NEGATIVE, Urine Benzodiazepines Screen NEGATIVE, Urine Cocaine Screen NEGATIVE, Urine Cannabinoids Screen NEGATIVE 09/05/16 21:19: Blood Gas Puncture Site LEFT FEMORAL, Blood Gas Patient Temperature 98.6, Arterial Blood pH 7.14*L, Arterial Blood Partial Pressure CO2 59H, Arterial Blood Partial Pressure O2 48L, Arterial Blood HCO3 19L, Arterial Blood Total CO2 21.0, Arterial Blood Oxygen Saturation 68L, Arterial Blood Base Excess -8.4L , Anmol Test NA, Blood Gas Ventilator Setting NO, Blood Gas Inspired Oxygen 15L 09/06/16 00:30: Blood Gas Puncture Site LEFT RADIAL, Blood Gas Patient Temperature 102.0, Arterial Blood pH 7.12*L, Arterial Blood Partial Pressure CO2 78*H, Arterial Blood Partial Pressure O2 83, Arterial Blood HCO3 24, Arterial Blood Total CO2 25.8, Arterial Blood Oxygen Saturation 91L, Arterial Blood Base Excess -4.2L, Anmol Test YES-POS, Blood Gas Ventilator Setting YES, Blood Gas Inspired Oxygen 100% 09/06/16 01:35: Lactic Acid Level 3.18*H 09/06/16 02:10: Blood Gas Puncture Site LEFT RADIAL, Blood Gas Patient Temperature 103.1, Arterial Blood pH 7.22*L, Arterial Blood Partial Pressure CO2 58H, Arterial Blood Partial Pressure O2 117H, Arterial Blood HCO3 22L, Arterial Blood Total CO2 23.4, Arterial Blood Oxygen Saturation 98, Arterial Blood Base Excess -4.2L , Anmol Test YES-POS, Blood Gas Ventilator Setting YES, Blood Gas Inspired Oxygen 100% 09/06/16 03:30: White Blood Count 2.5L, Red Blood Count 4.42, Hemoglobin 12.9, Hematocrit 39, Mean Corpuscular Volume 89, Mean Corpuscular Hemoglobin 29, Mean Corpuscular Hemoglobin Concent 33, Red Cell Distribution Width 13.1, Platelet Count 259, Mean Platelet Volume 12.2H, Neutrophils (%) (Auto) , Lymphocytes (%) (Auto) , Monocytes (%) (Auto) , Eosinophils (%) (Auto) , Basophils (%) (Auto) , Neutrophils # (Auto) , Lymphocytes # (Auto) , Monocytes # (Auto) , Eosinophils # (Auto) , Basophils # (Auto) , Sodium Level 144, Potassium Level 3.5L, Chloride Level 104, Carbon Dioxide Level 23, Anion Gap 17H, Blood Urea Nitrogen 44H, Creatinine 2.27H, Estimat Glomerular Filtration Rate 22, BUN/Creatinine Ratio 19, Glucose Level 284H, Calcium Level 7.9L, Phosphorus Level 5.0H, Magnesium Level 2.0 09/06/16 04:05: Lactic Acid Level 3.43*H 09/06/16 04:07: Glucometer 240H 09/06/16 04:50: Blood Gas Puncture Site RIGHT RADIAL, Blood Gas Patient Temperature 100.5, Arterial Blood pH 7.23*L, Arterial Blood Partial Pressure CO2 54H, Arterial Blood Partial Pressure O2 238H, Arterial Blood HCO3 21L, Arterial Blood Total CO2 22.8, Arterial Blood Oxygen Saturation 99, Arterial Blood Base Excess -4.9L , Anmol Test YES-POS, Blood Gas Ventilator Setting YES, Blood Gas Inspired Oxygen 100% 09/06/16 05:15: White Blood Count 2.6L, Red Blood Count 4.37, Hemoglobin 12.9, Hematocrit 40, Mean Corpuscular Volume 90, Mean Corpuscular Hemoglobin 30, Mean Corpuscular Hemoglobin Concent 33, Red Cell Distribution Width 13.2, Platelet Count 211, Mean Platelet Volume 11.8H, Neutrophils (%) (Auto) 64, Lymphocytes (%) (Auto) 26 , Monocytes (%) (Auto) 7, Eosinophils (%) (Auto) 3, Basophils (%) (Auto) 0, Neutrophils # (Auto) 1.6L, Lymphocytes # (Auto) 0.7L, Monocytes # (Auto) 0.2, Eosinophils # (Auto) 0.1, Basophils # (Auto) 0.0, Sodium Level 141, Potassium Level 3.1L, Chloride Level 106, Carbon Dioxide Level 18L, Anion Gap 17H, Blood Urea Nitrogen 44H, Creatinine 2.36H, Estimat Glomerular Filtration Rate 21, BUN/ Creatinine Ratio 19, Glucose Level 246H, Hemoglobin A1c 8.3H, Calcium Level 8.5 , Phosphorus Level 5.5H, Magnesium Level 2.1, Total Creatine Kinase 1607H, Troponin I < 0.30, Albumin 2.6L Microbiology 09/05/16 Urine Culture - Preliminary, Resulted Escherichia Coli Laboratory Tests 09/05/16 20:22 09/06/16 03:30 09/06/16 05:15 A/P-Cardiology Assessment/Admission Diagnosis Acute resp failure Septic shock at presentation on 09/05/16 No evidence of ACS at this time UTI Card cath of 05/17/14: mild CAD, LVEF 60%, LVEDP at top limit of normal Chronic tobacco use Discussion and Recomendations * Pt currently critically ill and management complex * Echo to eval LV function * I spoke with her fam, including eyewitnesses to events that led to ER, and answered their questions * Replenish K * Monitor labs closely Clinical Quality Measures DVT/VTE Risk/Contraindication: Risk Factor Score Per Nursin RFS Level Per Nursing on Admit: 4+=Very High DOTTY GOSS MD FACP FAC CCDS Sep 06, 2016 08:37
[2016-09-06] MEDS ORDERED: LEVOFLOXACIN 500 MG/100 ML IV 100 ML IV SCH (09:00)
[2016-09-06] MEDS ORDERED: cefTRIAXone INJECTION 1,000 MG in NS (IVPB) 50 ML IV SCH (09:00)
--- NOTE | 2016-09-06 09:02 | ED General ---
General Chief Complaint: Unresponsive Stated Complaint: S/P CARDIOPULMONARY ARREST;AMS;DEHYDRATION Nursing Triage Note: PT TO ED 3 PER EMS FOR C/O UNRESPONSIVE. PER EMS, PT LAST SEEN BY FAMILY AT 1000. FAMILY REPORTED THEY SPOKE TO PT AT 1200 ET HER SPEECH WAS SLURRED AT THAT TIME. PER EMS, CALLED THAT PT WAS FOUND AT 1930 BY FAMILY, NOT BREATHING, CPR WAS INITIATED AT THAT TIME ET COMPRESSIONS X30 PERFORMED UNTIL PT BEGAN TO BREATH AGAIN PER EMS. PT CURRENTLY MUMBLING INCOMPREHENSIBLE AT THIS TIME. MOVING ALL 4 EXTREMITIES W/O DIFFICULTY. PT UNABLE TO REPORT ANY C/O TO STAFF AT THIS TIME. Nursing Sepsis Screen: Severe Sepsis Risk Source of Information: EMS, Family, Old Records (ALL PMH IS FROM OLD CHART) History of Present Illness Time Seen by Provider: 20:12 Initial Comments PT ARRIVES VIA EMS FROM HOME FAMILY STATES THAT SOMEONE TALKED TO HER ON THE PHONE AT 10 AM TODAY AND WAS "FINE" FAMILY MEMBER SPOKE WITH HER AT NOON AND PT HAD SLURRED SPEECH AND WAS CONFUSED. PT WAS FOUND BY FAMILY TONIGHT AT 1930 AND WAS VERY CONFUSED, LETHARGIC AND SLURRED SPEECH THEY WERE TRYING TO GET HER ONTO THE PORCH TO BRING HER TO ER, PT SUDDENLY BECAME UNRESPONSIVE AND THEY DROPPED HER ON THE PORCH AND FOUND THAT PT WAS NOT BREATHING. 30 COMPRESSIONS WERE DONE BY FAMILY, WITH RETURN OF SPONTANEOUS BREATHING EMS REPORT THAT PT IS CONFUSED, WITH INCOMPREHENSIVE SPEECH ACCUCHECK 300 BY EMS. BP 124/70 AND 128/85 BY EMS PRIOR TO ARRIVAL. NO OTHER INFORMATION IS KNOWN ABOUT EVENTS OF TODAY DAUGHTER DOES REPORT THAT PT HAS NOT BEEN ILL RECENTLY, HAS ONLY BEEN HAVING BACK PAIN THE LAST WEEK OR TWO SHE ALSO REPORTS THAT PT "HAS BEEN GOING [place] THE LAST COUPLE OF MONTHS" EMS REPORT THAT PT HAS BEEN PRESCRIBED HYDROCODONE BUT THAT BOTTLE WAS NOT BROUGHT TO ER WITH PT'S OTHER MEDICATIONS PCP: [facility] Allergies and Home Medications Allergies Coded Allergies: ciprofloxacin (Verified Allergy, Unknown, 08/24/14) naproxen (Verified Allergy, Unknown, 08/24/14) HEADACHE ondansetron (Unverified Allergy, Unknown, 03/17/14) Home Medications Acetaminophen 325 Mg Tablet, 1,000 MG PO Q6H PRN for PAIN, (Reported) Aspirin 81 Mg Tabec, 81 MG PO DAILY, (Reported) Atorvastatin Calcium 40 Mg Tablet, 40 MG PO HS, #30 Ref 4 Prescribed by: EDUARDO OVALLE on 05/17/14 1429 Cephalexin Monohydrate 500 Mg Capsule, 1 EACH PO TID, #21 Prescribed by: DEJA BAKER on 08/24/14 2225 Cyclobenzaprine HCl 10 Mg Tablet, 10 MG PO TID PRN for SPASMS, #10 Prescribed by: CHILO LOVE on 09/03/16 0806 Epinephrine 0.3 Mg/0.3 Ml Auto.injct, 0.3 MG IJ UD PRN for SHORTNESS OF BREATH, #1 Ref 0 Prescribed by: MACKENZIE CONNOR on 05/26/162012 Famotidine 20 Mg Tablet, 20 MG PO BID, #60 Ref 0 Prescribed by: MACKENZIE CONNOR on 12/15/15 1916 Famotidine 20 Mg Tablet, 20 MG PO BID, #20 Ref 0 Prescribed by: MACKENZIE CONNOR on 05/26/162012 Hydrocodone Bit/Acetaminophen 1 Each Tablet, Unknown Dose PO UD, (Reported) Loratadine 10 Mg Capsule, 10 MG PO DAILY, (Reported) [place]-3/Dha/Epa/Fish Oil 1 Each Capsule.dr, 4,000 MG PO BID, (Reported) TAKES 4 (1000MG) CAPSULES TWICE DAILY Prednisone 20 Mg Tab, 40 MG PO DAILY, #8 Ref 0 Prescribed by: MACKENZIE CONNOR on 05/26/162012 Propranolol HCl 60 Mg Tablet, 60 MG PO BID, #60 (Reported) Venlafaxine HCl 75 Mg Cap.er.24h, 75 MG PO BID, (Reported) Constitutional: other (PT UNABLE TO GIVE ANY INFORMATION) Past Fofyjkn-Wrtsvs-Uhswbi Hx Patient Social History Alcohol Use: Denies Use Recreational Drug Use: No Smoking Status: Current Everyday Smoker Type Used: Cigarettes Recent Foreign Travel: No Contact w/Someone Who Travel: No Recent Infectious Disease Expo: No Recent Hopitalizations: Yes (PANCREATITIS) Physical Abuse Screen: No Sexual Abuse: No Immunizations Up To Date Tetanus Booster (TDap): Unknown PED Vaccines UTD: Yes Date of Pneumonia Vaccine: Jan 05, 2011 Date of Influenza Vaccine: Feb 06, 2016 Seasonal Allergies Seasonal Allergies: No Surgeries HX Surgeries: Yes (R EAR tumor removed-MULTIPLE EAR SURGERIES. 3 lumps R breast ; CARDIAC CATH 2015--NO INTERVENTION) Surgeries: Adenoidectomy, Appendectomy, Breast, Cardiac, Section, Ear Surgery, Gallbladder, Hysterectomy, Tonsillectomy Respiratory Hx Respiratory Disorders: Yes Respiratory Disorders: Asthma Cardiovascular Hx Cardiac Disorders: Yes (aortic stenosis. 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, Menopausal Genitourinary Hx Genitourinary Disorders: No Gastrointestinal Hx Gastrointestinal Disorders: Yes Gastrointestinal Disorders: Pancreatitis Musculoskeletal Hx Musculoskeletal Disorders: Yes Musculoskeletal Disorders: Fibromyalgia Endocrine Hx Endocrine Disorders: Yes Endocrine Disorders: Diabetes, Non-Insulin dep, Lupus HEENT HX ENT Disorders: Yes HEENT Disorders: Chronic Ear Infection Loss of Vision: Denies Cancer Hx Cancer: No Psychosocial Hx Psychiatric Problems: Yes Behavioral Health Disorders: Depression Integumentary HX Skin/Integumentary Disorder: No Blood Transfusions Hx Blood Disorders: Yes Adverse Reaction to a Blood Tr: No Family Medical History Significant Family History: Heart Disease, CAD Under 55 Years Old Family Medial History: Alzheimer's disease 19 MOTHER Cardiovascular disease 19 MOTHER Diabetes mellitus 19 MOTHER FH: CHF (congestive heart failure) 19 MOTHER Hypertension 19 MOTHER Kidney disease 19 MOTHER Myocardial infarction 19 MOTHER Physical Exam Vital Signs Vital Sign - Last 12Hours 09/05/16 09/05/16 20:12 22:19 Temp 98.6 Pulse 137 Resp 36 B/P (MAP) 53/28 Pulse Ox 89 O2 Delivery Nonrebreather O2 Flow Rate 10.00 FiO2 100 Capillary Refill : Less Than 3 Seconds General Appearance: WD/WN, Other (PT AGITATED, RESTLESS. CONFUSED, MOSTLY MUMBLING/TALKING INCOHERENTLY. DOES TALK A LITTLE BUT GIVES INCONSISTENT INFORMATION. PT EXTREMELY MALODOROUS, FILTHY AND WEARING SAME CLOTHES SHE HAD ON WHEN IN ER 2 DAYS AGO. BAREFOOT. ) HEENT: PERRL/EOMI Neck: Full Range of Motion, Normal Inspection, Non Tender, Supple Respiratory: Normal Breath Sounds, No Accessory Muscle Use, No Respiratory Distress Cardiovascular: No Edema, No JVD, No Murmur, Normal Peripheral Pulses, Tachycardia Gastrointestinal: Normal Bowel Sounds, No Organomegaly, No Pulsatile Mass, Non Tender, Soft Extremity: Normal Range of Motion, No Calf Tenderness, No Pedal Edema Neurologic/Psychiatric: Alert, Other (CONFUSED, UNABLE TO ANSWER QUESTIONS, SPEECH INCOHERENT, DOES NOT FOLLOW COMMANDS. DOES MOVE ALL EXTREMITIES AND GROSS MOTOR AND SENSORY IS INTACT. ) Progress CENTRAL LINE PLACEMENT ON RIGHT PERFORMED BY DR. KAPADIA ART LINE PLACED IN RIGHT GROIN AND PT INTUBATED BY Edith ANDERSON CRNA Date of ETT Placement: Sep 05, 2016 Time of ETT Placement: 2218 Tube Size: 7.00 Progress/Results/Core Measures Results/Orders Lab Results Laboratory Tests Test 09/05/16 20:22 09/05/16 20:34 09/05/16 21:19 09/06/16 00:30 Range/Units White Blood Count 6.5 4.3-11.0 10^3/uL Red Blood Count 4.82 4.35-5.85 10^6/uL Hemoglobin 14.1 11.5-16.0 G/DL Hematocrit 43 35-52 % Mean Corpuscular Volume 89 80-99 FL Mean Corpuscular Hemoglobin 29 25-34 PG Mean Corpuscular Hemoglobin Concent 33 32-36 G/DL Red Cell Distribution Width 12.9 10.0-14.5 % Platelet Count 330 130-400 10^3/uL Mean Platelet Volume 11.9 H 7.4-10.4 FL Neutrophils (%) (Auto) 42-75 % Lymphocytes (%) (Auto) 12-44 % Monocytes (%) (Auto) 0-12 % Eosinophils (%) (Auto) 0-10 % Basophils (%) (Auto) 0-10 % Neutrophils # (Auto) 1.8-7.8 X 10^3 Lymphocytes # (Auto) 1.0-4.0 X 10^3 Monocytes # (Auto) 0.0-1.0 X 10^3 Eosinophils # (Auto) 0.0-0.3 10^3/uL Basophils # (Auto) 0.0-0.1 10^3/uL Neutrophils % (Manual) 30 % Lymphocytes % (Manual) 40 % Monocytes % (Manual) 5 % Eosinophils % (Manual) 0 % Basophils % (Manual) 0 % Metamyelocytes % 2 % Band Neutrophils 23 % Toxic Granulation 2+ Blood Morphology Comment NORMAL Prothrombin Time 17.3 H 12.2-14.7 SEC INR Comment 1.4 0.8-1.4 Activated Partial Thromboplast Time 30 24-35 SEC Sodium Level 140 135-145 MMOL/L Potassium Level 3.5 L 3.6-5.0 MMOL/L Chloride Level 102 98-107 MMOL/L Carbon Dioxide Level 16 L 21-32 MMOL/L Anion Gap 22 H 5-14 MMOL/L Blood Urea Nitrogen 36 H 7-18 MG/DL Creatinine 2.16 H 0.60-1.30 MG/DL Estimat Glomerular Filtration Rate 24 BUN/Creatinine Ratio 17 Glucose Level 315 H 70-105 MG/DL Calcium Level 11.0 H 8.5-10.1 MG/DL Magnesium Level 2.3 1.8-2.4 MG/DL Total Bilirubin 0.8 0.1-1.0 MG/DL Aspartate Amino Transf (AST/SGOT) 68 H 5-34 U/L Alanine Aminotransferase (ALT/SGPT) 47 0-55 U/L Alkaline Phosphatase 60 40-136 U/L Total Creatine Kinase 1153 H 29-168 U/L Creatine Kinase MB 10.9 *H <6.6 NG/ML Troponin I < 0.30 <0.30 NG/ML B-Type Natriuretic Peptide 903.0 H <100.0 PG/ML Total Protein 7.7 6.4-8.2 G/DL Albumin 3.7 3.2-4.5 G/DL TSH [place]els Testing 1.94 0.35-4.94 UIU/ML Acetaminophen Level 21 10-30 UG/ML Serum Alcohol < 10 <10 MG/DL Urine Color JOLYNN H Urine Clarity SLIGHTLY CLOUDY Urine pH 5 5-9 Urine Specific [place] 1.025 H 1.016-1.022 Urine Protein 3+ H NEGATIVE Urine Glucose (UA) 1+ H NEGATIVE Urine Ketones 1+ H NEGATIVE Urine Nitrite NEGATIVE NEGATIVE Urine Bilirubin NEGATIVE NEGATIVE Urine Urobilinogen 4 H NORMAL MG/DL Urine Leukocyte Esterase 3+ H NEGATIVE Urine RBC (Auto) 3+ H NEGATIVE Urine RBC 10-25 H /HPF Urine WBC >100 H /HPF Urine Squamous Epithelial Cells 2-5 /HPF Urine Crystals PRESENT H /LPF Urine Amorphous Sediment MOD KYLAH URATES H /LPF Urine Bacteria LARGE H /HPF Urine Casts NONE /LPF Urine Mucus NEGATIVE /LPF Urine Culture Indicated YES Urine Opiates Screen NEGATIVE NEGATIVE Urine Oxycodone Screen NEGATIVE NEGATIVE Urine Methadone Screen NEGATIVE NEGATIVE Urine Propoxyphene Screen NEGATIVE NEGATIVE Urine Barbiturates Screen NEGATIVE NEGATIVE Ur Tricyclic Antidepressants Screen POSITIVE H NEGATIVE Urine Phencyclidine Screen NEGATIVE NEGATIVE Urine Amphetamines Screen NEGATIVE NEGATIVE Urine Methamphetamines Screen NEGATIVE NEGATIVE Urine Benzodiazepines Screen NEGATIVE NEGATIVE Urine Cocaine Screen NEGATIVE NEGATIVE Urine Cannabinoids Screen NEGATIVE NEGATIVE Blood Gas Puncture Site LEFT FEMORAL LEFT RADIAL Blood Gas Patient Temperature 98.6 102.0 Arterial Blood pH 7.14 *L 7.12 *L 7.37-7.43 Arterial Blood Partial Pressure CO2 59 H 78 *H 35-45 MMHG Arterial Blood Partial Pressure O2 48 L 83 79-93 MMHG Arterial Blood HCO3 19 L 24 23-27 MMOL/L Arterial Blood Total CO2 21.0 25.8 21.0-31.0 MMOL/L Arterial Blood Oxygen Saturation 68 L 91 L 94-100 % Arterial Blood Base Excess -8.4 L -4.2 L -2.5-2.5 MMOL/L Anmol Test NA YES-POS Blood Gas Ventilator Setting NO YES Blood Gas Inspired Oxygen 15L 100% Test 09/06/16 01:35 09/06/16 02:10 09/06/16 03:30 09/06/16 04:05 Range/Units Lactic Acid Level 3.18 *H 3.43 *H 0.50-2.00 MMOL/L Blood Gas Puncture Site LEFT RADIAL Blood Gas Patient Temperature 103.1 Arterial Blood pH 7.22 *L 7.37-7.43 Arterial Blood Partial Pressure CO2 58 H 35-45 MMHG Arterial Blood Partial Pressure O2 117 H 79-93 MMHG Arterial Blood HCO3 22 L 23-27 MMOL/L Arterial Blood Total CO2 23.4 21.0-31.0 MMOL/L Arterial Blood Oxygen Saturation 98 94-100 % Arterial Blood Base Excess -4.2 L -2.5-2.5 MMOL/L Anmol Test YES-POS Blood Gas Ventilator Setting YES Blood Gas Inspired Oxygen 100% White Blood Count 2.5 L 4.3-11.0 10^3/uL Red Blood Count 4.42 4.35-5.85 10^6/uL Hemoglobin 12.9 11.5-16.0 G/DL Hematocrit 39 35-52 % Mean Corpuscular Volume 89 80-99 FL Mean Corpuscular Hemoglobin 29 25-34 PG Mean Corpuscular Hemoglobin Concent 33 32-36 G/DL Red Cell Distribution Width 13.1 10.0-14.5 % Platelet Count 259 130-400 10^3/uL Mean Platelet Volume 12.2 H 7.4-10.4 FL Neutrophils (%) (Auto) 42-75 % Lymphocytes (%) (Auto) 12-44 % Monocytes (%) (Auto) 0-12 % Eosinophils (%) (Auto) 0-10 % Basophils (%) (Auto) 0-10 % Neutrophils # (Auto) 1.8-7.8 X 10^3 Lymphocytes # (Auto) 1.0-4.0 X 10^3 Monocytes # (Auto) 0.0-1.0 X 10^3 Eosinophils # (Auto) 0.0-0.3 10^3/uL Basophils # (Auto) 0.0-0.1 10^3/uL Sodium Level 144 135-145 MMOL/L Potassium Level 3.5 L 3.6-5.0 MMOL/L Chloride Level 104 98-107 MMOL/L Carbon Dioxide Level 23 21-32 MMOL/L Anion Gap 17 H 5-14 MMOL/L Blood Urea Nitrogen 44 H 7-18 MG/DL Creatinine 2.27 H 0.60-1.30 MG/DL Estimat Glomerular Filtration Rate 22 BUN/Creatinine Ratio 19 Glucose Level 284 H 70-105 MG/DL Calcium Level 7.9 L 8.5-10.1 MG/DL Phosphorus Level 5.0 H 2.3-4.7 MG/DL Magnesium Level 2.0 1.8-2.4 MG/DL Test 09/06/16 04:07 09/06/16 04:50 09/06/16 05:15 Range/Units Glucometer 240 H 70-110 MG/DL Blood Gas Puncture Site RIGHT RADIAL Blood Gas Patient Temperature 100.5 Arterial Blood pH 7.23 *L 7.37-7.43 Arterial Blood Partial Pressure CO2 54 H 35-45 MMHG Arterial Blood Partial Pressure O2 238 H 79-93 MMHG Arterial Blood HCO3 21 L 23-27 MMOL/L Arterial Blood Total CO2 22.8 21.0-31.0 MMOL/L Arterial Blood Oxygen Saturation 99 94-100 % Arterial Blood Base Excess -4.9 L -2.5-2.5 MMOL/L Anmol Test YES-POS Blood Gas Ventilator Setting YES Blood Gas Inspired Oxygen 100% White Blood Count 2.6 L 4.3-11.0 10^3/uL Red Blood Count 4.37 4.35-5.85 10^6/uL Hemoglobin 12.9 11.5-16.0 G/DL Hematocrit 40 35-52 % Mean Corpuscular Volume 90 80-99 FL Mean Corpuscular Hemoglobin 30 25-34 PG Mean Corpuscular Hemoglobin Concent 33 32-36 G/DL Red Cell Distribution Width 13.2 10.0-14.5 % Platelet Count 211 130-400 10^3/uL Mean Platelet Volume 11.8 H 7.4-10.4 FL Neutrophils (%) (Auto) 64 42-75 % Lymphocytes (%) (Auto) 26 12-44 % Monocytes (%) (Auto) 7 0-12 % Eosinophils (%) (Auto) 3 0-10 % Basophils (%) (Auto) 0 0-10 % Neutrophils # (Auto) 1.6 L 1.8-7.8 X 10^3 Lymphocytes # (Auto) 0.7 L 1.0-4.0 X 10^3 Monocytes # (Auto) 0.2 0.0-1.0 X 10^3 Eosinophils # (Auto) 0.1 0.0-0.3 10^3/uL Basophils # (Auto) 0.0 0.0-0.1 10^3/uL Sodium Level 141 135-145 MMOL/L Potassium Level 3.1 L 3.6-5.0 MMOL/L Chloride Level 106 98-107 MMOL/L Carbon Dioxide Level 18 L 21-32 MMOL/L Anion Gap 17 H 5-14 MMOL/L Blood Urea Nitrogen 44 H 7-18 MG/DL Creatinine 2.36 H 0.60-1.30 MG/DL Estimat Glomerular Filtration Rate 21 BUN/Creatinine Ratio 19 Glucose Level 246 H 70-105 MG/DL Hemoglobin A1c 8.3 H 4.5-6.2 % Calcium Level 8.5 8.5-10.1 MG/DL Phosphorus Level 5.5 H 2.3-4.7 MG/DL Magnesium Level 2.1 1.8-2.4 MG/DL Total Creatine Kinase 1607 H 29-168 U/L Troponin I < 0.30 <0.30 NG/ML Albumin 2.6 L 3.2-4.5 G/DL Micro Results Microbiology 09/05/16 Urine Culture - Preliminary, Resulted Escherichia Coli My Orders Orders - TERA GREEN DO Saline Lock/Iv-Start (09/05/16 20:21) Ekg Tracing (09/05/16 20:21) Catheter(Urinary) Insert & Ass 03,15 (09/05/16 20:21) O2 (09/05/16 20:21) Monitor-Rhythm Ecg Trace Only (09/05/16 20:21) Ct Head Wo-R/O Stroke (09/05/16 20:21) Acetaminophen (09/05/16 20:21) Alcohol (09/05/16 20:21) Arterial Blood Gas (09/05/16 20:21) BNP (09/05/16 20:21) Cbc With Automated Diff (09/05/16 20:21) Comprehensive Metabolic Panel (09/05/16 20:21) Creatine Kinase (09/05/16 20:21) Creatine Kinase Mb (09/05/16 20:21) Drug Screen Stat (Urine) (09/05/16 20:21) Magnesium (09/05/16 20:21) Protime With Inr (09/05/16 20:21) Partial Thromboplastin Time (09/05/16 20:21) Thyroid Analyzer (09/05/16 20:21) Troponin I (09/05/16 20:21) Ua Culture If Indicated (09/05/16 20:21) Chest 1 View, Ap/Pa Only (09/05/16 20:21) Saline Lock/Iv-Start (09/05/16 20:21) Ns Iv 1000 Ml (Sodium Chloride 0.9%) (09/05/16 20:21) Ns Iv 1000 Ml (Sodium Chloride 0.9%) (09/05/16 20:19) Manual Differential (09/05/16 20:22) Urine Culture (09/05/16 20:34) Ceftriaxone Injection (Rocephin Injectio (09/05/16 21:45) Enoxaparin Injection (Lovenox Injection) (09/05/16 21:45) D5w 250 Ml (Ivpb) (Dextrose 5% Water Iv (09/05/16 21:35) Norepinephrine (Levophed) (09/05/16 21:35) Enoxaparin Injection (Lovenox Injection) (09/05/16 22:00) D5w 250 Ml (Ivpb) (... W/Norepinephrine (09/05/16 22:00) Chest 1 View, Ap/Pa Only (09/05/16 22:07) Heparin (Central Iv Flush) (Heparin (Jackie (09/05/16 22:05) Phenylephrine Injection (Kali-Synephrine (09/05/16 22:13) Ns Iv 500 Ml (Sodium Chloride 0.9%) (09/05/16 22:14) Ns (Ivpb) (Sodium Chloride 0.9%) (09/05/16 22:17) Saline Lock/Iv-Start (09/05/16 22:57) Ns Iv 1000 Ml (Sodium Chloride 0.9%) (09/05/16 22:57) Ns Iv 1000 Ml (Sodium Chloride 0.9%) (09/05/16 22:54) Etomidate Injection (Amidate Injection) (09/05/16 23:00) Rocuronium Injection (Zemuron Injection) (09/05/16 23:00) Succinylcholine Injection (Succinylcholi (09/05/16 23:00) Vital Signs/I&O Vital Sign - Last 12Hours 09/05/16 09/05/16 09/05/16 09/05/16 22:19 22:42 23:22 23:25 Pulse 147 151 114 122 Resp 23 12 12 15 Pulse Ox 97 97 90 96 FiO2 100 100 100 09/05/16 09/06/16 09/06/16 09/06/16 23:45 00:00 00:15 00:30 Pulse 129 130 134 138 Resp 13 18 21 22 B/P (MAP) 106/56 94/58 98/62 109/73 Pulse Ox 97 91 88 90 O2 Flow Rate 100.00 100.00 100.00 100.00 09/06/16 09/06/16 09/06/16 09/06/16 00:30 00:44 00:45 01:00 Temp 102.0 102.5 Pulse 141 146 Resp 21 24 B/P (MAP) 120/71 111/65 Pulse Ox 92 87 O2 Flow Rate 100.00 100.00 09/06/16 09/06/16 09/06/16 09/06/16 01:00 01:03 01:15 01:30 Pulse 145 144 146 Resp 16 23 B/P (MAP) 138/83 112/76 Pulse Ox 100 98 O2 Flow Rate 100.00 100.00 FiO2 100 09/06/16 09/06/16 09/06/16 09/06/16 01:31 01:45 01:45 01:59 Temp 100.5 Pulse 146 146 154 Resp 24 24 B/P (MAP) 123/24 Pulse Ox 96 97 O2 Flow Rate 100.00 FiO2 100 09/06/16 09/06/16 09/06/16 09/06/16 02:00 02:10 02:15 02:19 Temp 103.1 103.1 Pulse 154 152 Resp 10 13 B/P (MAP) 106/34 104/93 Pulse Ox 94 95 O2 Flow Rate 100.00 100.00 09/06/16 09/06/16 09/06/16 09/06/16 02:30 02:30 02:45 02:49 Temp 105.2 105.2 Pulse 154 151 Resp 22 16 B/P (MAP) 139/65 116/84 Pulse Ox 96 95 O2 Flow Rate 100.00 100.00 09/06/16 09/06/16 09/06/16 09/06/16 03:00 03:00 03:15 03:30 Temp 106.1 Pulse 152 138 138 Resp 23 B/P (MAP) 88/42 132/94 153/71 Pulse Ox 98 O2 Flow Rate 100.00 100.00 100.00 09/06/16 09/06/16 09/06/16 09/06/16 03:45 03:48 04:00 04:00 Temp 103.4 Pulse 135 129 Resp 24 23 B/P (MAP) 98/76 96/57 Pulse Ox 98 O2 Flow Rate 100.00 100.00 100.00 09/06/16 09/06/16 09/06/16 09/06/16 04:20 04:25 05:00 05:34 Temp 101.8 98.4 Pulse 122 124 Resp 24 23 B/P (MAP) 137/77 Pulse Ox 99 O2 Flow Rate 100.00 FiO2 100 09/06/16 09/06/16 06:00 06:32 Pulse 110 114 Resp 23 24 B/P (MAP) 121/82 Pulse Ox 99 100 O2 Flow Rate 100.00 FiO2 60 Blood Pressure Mean: 95 Point of Care Testing Finger Stick Blood Glucose: 240 Progress Note : Progress Note PT CONTINUED TO HAVE HYPOTENSION DESPITE FLUID LOADING CENTRAL LINE PLACED BY DR. KAPADIA, PT HAS EXTREMELY POOR IV ACCESS LEVOPHED STARTED PT INTUBATED AND ART LINE PLACED BY Edith ANDERSON CRNA DUE TO PT'S CRITICAL CONDITION ECG Initial ECG Impression Time: 21:05 Initial ECG Rate: 138 Initial ECG Rhythm: S.Tach Diagnostic Imaging Comments CT HEAD--NO ACUTE PROCESS CXR--MILD PULMONARY VASCULAR CONGESTION PER RADIOLOGIST REPORTS @ 2119 Reviewed: Reviewed by Me Departure Communication Progress Notes 2128--SPOKE WITH DR. GOSS FOR CARDIOLOGY CONSULT 2132--SPOKE WITH DR. ROMERO--WANTS PT INTUBATED AND CENTRAL LINE PLACED. 2134--SPOKE WITH DR. KAPADIA FOR CENTRAL LINE PLACEMENT 2146--DR. KAPADIA HERE 2202--Edith ANDERSON CRNA HERE. CONSULTED FOR INTUBATION AND ART LINE PLACEMENT Impression Impression: Primary Impression: S/P CARDIOPULMONARY ARREST WITH SUCCESSFUL RESUSCITATION Additional Impressions: Altered mental status Septic shock UTI (urinary tract infection) Acute renal failure Acute respiratory failure Disposition: 09 ADMITTED INPATIENT Condition: Critical Decision to Admit Reason: Admit from ER (General) Decision to Admit/Date: Sep 05, 2016 Time/Decision to Admit Time: 21:30 Departure-Patient Inst. Referrals: SARAH BURNS (Family) Primary Care Physician [facility] (PCP) Primary Care Physician TERA GREEN DO Sep 06, 2016 09:01
[2016-09-06] MEDS: FENTANYL IV SCH (09:10)
[2016-09-06] MEDS: RT-ALBUTEROL/IPRATROPIUM 3 ML (DUONEB) VIAL INH SCH ×4 (09:25→21:57)
[2016-09-06] MEDS: MEROPENEM 500 MG in NS (IVPB) 100 ML IV SCH ×2 (09:33→21:27)
[2016-09-06] MEDS ORDERED: PRD10T PO (09:40)
[2016-09-06] MEDS ORDERED: GABA-488 PO (09:40)
[2016-09-06] MEDS ORDERED: ATOR10TA66 PO (09:40)
[2016-09-06] MEDS ORDERED: OMEP20CA12 PO (09:40)
[2016-09-06] MEDS ORDERED: VENL150C PO (09:40)
[2016-09-06] MEDS ORDERED: CYCL10TA9 PO (09:40)
[2016-09-06] MEDS ORDERED: METF500T4 PO (09:40)
[2016-09-06] MEDS ORDERED: HYDR-3816 PO (09:40)
[2016-09-06] MEDS ORDERED: FENO145T2 PO (09:40)
[2016-09-06] MEDS ORDERED: EPIN0.3P17 SQ (09:40)
[2016-09-06] MEDS ORDERED: LORA10TA7 PO (09:40)
--- NOTE | 2016-09-06 11:32 | Physical Therapy Progress Note ---
Therapy Progress Note Patient is currently on ventilator. No skilled PT indicated at this time. PT to monitor patient status to address when medically indicated. TAMMY ORDRIGUES PT Sep 06, 2016 11:32
--- NOTE | 2016-09-06 11:46 | History & Physical-Hospitalist ---
HPI History of Present Illness: HPI/Chief Complaint CC: Altered Mental Status HPI: This is a 56 yoWF pt that was seen multiple times this past week for back pain, given pain meds. Pt fell down at home and was found at home. She presented hypotensive in ER. Pt was intubated due to severe sepsis since ABG showed 7.14/49/58 and was not a candidate for Bipap. UA shows TNTC WBCs so we are treated presumed pyelo with severe sepsis.Pt on max pressor therapy with stress dose steroids with Vanc and Meropenem. Pharmacy Review: Pt has severe sepsis along with pyelonephritis She doesn't look well Her CT scan was normal of the head that there was NO mass effect as previously stated She is on the vent Patient Interview: Pt's daughter states that she did wake up and was wondering what was going on, but didn't seem to know exactly what was happening Pt's lungs were clear at this time We will continue the antibiotics Pt was not alert during interview today Scribed by Sophy Almaraz under the direct supervision of Dr. Vuong. Source: RN/MD, caregiver Date Seen 09/06/16 Attending Physician Danielle Vuong DO P[place] [facility] [place] Referring Physician Date of Admission Sep 05, 2016 at 21:20 Home Medications & Allergies Home Medications Reviewed patient Home Medication Reconciliation Form Allergies Allergies Coded Allergies ciprofloxacin (Verified Allergy, Unknown, 08/24/14) naproxen (Verified Allergy, Unknown, 08/24/14) HEADACHE ondansetron (Unverified Allergy, Unknown, 03/17/14) Past Fbthosw-[id number]-[id number] Hx Patient Social History Employed/Student: unemployed Alcohol Use: Denies Use Recreational Drug Use: No Smoking Status: Current Everyday Smoker Type Used: Cigarettes Physical Abuse Screen: No Sexual Abuse: No Recent Foreign Travel: No Contact w/other who traveled: No Recent Hopitalizations: Yes (PANCREATITIS) Recent Infectious Disease Expo: No Immunizations Up To Date Tetanus Booster (TDap): Unknown Date of Pneumonia Vaccine: Jan 05, 2011 Date of Influenza Vaccine: Feb 06, 2016 Seasonal Allergies Seasonal Allergies: No Surgeries HX Surgeries: Yes (R EAR tumor removed-MULTIPLE EAR SURGERIES. 3 lumps R breast ; CARDIAC CATH 2014--NO INTERVENTION) Surgeries: Adenoidectomy, Appendectomy, Breast, Cardiac, Section, Ear Surgery, Gallbladder, Hysterectomy, Tonsillectomy Respiratory Hx Respiratory Disorders: Yes Respiratory Disorders: COPD Cardiovascular Hx Cardiovascular Disorders: Yes (aortic stenosis. ) Cardiac Disorders: High Cholesterol, Hypertension, Valvular Heart Disease Neurological Hx Neurological Disorders: Yes Neurological Disorders: Concussion Reproductive System Hx Reproductive Disorders: No Sexually Transmitted Disease: No HIV/AIDS: No Female Reproductive Disorders: Endometriosis, Ovarian Cyst Genitourinary Hx Genitourinary Disorders: No Gastrointestinal Hx Gastrointestinal Disorders: Yes Gastrointestinal Disorders: Pancreatitis Musculoskeletal Hx Musculoskeletal Disorders: Yes Musculoskeletal Disorders: Fibromyalgia Endocrine Hx Endocrine Disorders: Yes Endocrine Disorders: Diabetes, Non-Insulin dep, Lupus HEENT HX ENT Disorders: Yes HEENT Disorders: Chronic Ear Infection Loss of Vision: Denies Cancer Hx Cancer: No Psychosocial Hx Psychiatric Problems: Yes Behavioral Health Disorders: Depression Integumentary HX Skin/Integumentary Disorder: No Blood Transfusions Hx Blood Disorders: Yes Adverse Reaction to a Blood Tr: No Family Medical History Significant Family History: Heart Disease, CAD Under 55 Years Old Family Hx: Alzheimer's disease 19 MOTHER Cardiovascular disease 19 MOTHER Diabetes mellitus 19 MOTHER FH: CHF (congestive heart failure) 19 MOTHER Hypertension 19 MOTHER Kidney disease 19 MOTHER Myocardial infarction 19 MOTHER Review of Systems ROS-Unable to Obtain: unobtainable due to intubation Constitutional: see HPI Physical Exam Physical Exam Vital Signs Vital Sign - Last 12Hours 09/05/16 09/05/16 20:12 22:19 Temp 98.6 Pulse 137 Resp 36 B/P (MAP) 53/28 Pulse Ox 89 O2 Delivery Nonrebreather O2 Flow Rate 10.00 FiO2 100 Capillary Refill : Less Than 3 Seconds General Appearance: Chronically ill, Other (sedated on vent) Neck: Normal Inspection Respiratory: Chest Non Tender, Lungs Clear, Decreased Breath Sounds Cardiovascular: Regular Rate, Rhythm, No Edema Extremity: Normal Capillary Refill, Normal Inspection Neurologic/Psychiatric: Other (sedated) Skin: Normal Color, Warm/Dry Lymphatic: No Adenopathy Results Results/Procedures Lab Laboratory Tests 09/05/16 20:22 09/06/16 03:30 09/06/16 05:15 Assessment/Plan Admission Diagnosis Assessment: Severe sepsis with hypotension due to acute pyelonephritis Severe dehydration Recent severe back pain with multiple ER visits for pain meds and surrounding area Acute renal failure Assessment and Plan Plan: Pt will continue antibiotic treatment Assess CT head report Maintain intubation and ventilator management appreciated by Dr. Sarah Beth Maximum medical management required and prognosis is extremely poor Clinical Quality Measures DVT/VTE Risk/Contraindication: Risk Factor Score Per Nursin RFS Level Per Nursing on Admit: 4+=Very High DANIELLE VUONG DO Sep 06, 2016 11:46
--- NOTE | 2016-09-06 12:04 | Occ Therapy Progress Note ---
Therapy Progress Note Date Seen by Provider: Sep 06, 2016 Time Seen by Provider: 11:05 Pt on ventilator, not participating, sedated. Plan OT evaluation when she is able to participate. CACHORRO VALLADARES OT Sep 06, 2016 12:04
[2016-09-06] MEDS ORDERED: ACETAMINOPHEN 650 MG SUPP (TYLENOL) PR PRN ×2 (12:30→12:45)
--- NOTE | 2016-09-06 15:57 | Anesthesia-Procedure Note ---
Procedure Start/Stop Time Date of Procedure: Sep 06, 2016 Start Time: 14:00 Referring Physician: Dr. Vuong Preprocedural Diagnosis: Hypotension, on vasopressors Brief History Called to ICU 8 for arterial line placement. She had a femoral art line placed that is no longer functioning. Currently on 2 vasopressors so art line placement will be attempted. Consent signed by family. Attempted Left radial art line without success. 20 G art line right radial secured with good waveform. Pt tolerated procedure well. Will be available if needed. Stop Time: 14:20 Postprocedural Diagnosis: EDWARD Rowland DO Sep 06, 2016 15:57
--- NOTE | 2016-09-06 15:59 | Diagnostic Imaging Report ---
CLINICAL INDICATION: Patient with urosepsis. Exam: Ultrasound of both kidneys. Comparison: CT scan of the abdomen and pelvis performed with contrast dated 08/10/2010. Findings: Slightly small measured right kidney. This was noted on the prior CT scan. Otherwise, both kidneys are normal in size, shape, echogenicity and cortical thickness without hydronephrosis, stones, or focal lesions with the right and left kidneys measuring 9.7 cm and 12.0 cm in their craniocaudal dimensions, respectively. Impression: Slightly small measured right kidney. Otherwise, unremarkable bilateral renal ultrasound. Dictated by: Dictated on workstation # [id number]
[2016-09-06] MEDS ORDERED: NS IV 500 ML 500 ML IV ONE (17:30)
--- NOTE | 2016-09-06 19:36 | OPERATIVE REPORT ---
DATE OF SERVICE: 09/05/2016 PREOPERATIVE DIAGNOSIS: Septic shock. POSTOPERATIVE DIAGNOSIS: Septic shock. PROCEDURE: Right internal jugular central line placement using ultrasound guidance. SURGEON: Sandrine Blue DO. ANESTHESIA: Local. ESTIMATED BLOOD LOSS: Minimal. COMPLICATIONS: None. INDICATIONS: The patient is a 56-year-old female who presented to the Emergency Department by EMS status post cardiopulmonary resuscitation. She was hypotensive, tachycardic and found to have urinary tract infection. The patient was in septic shock. Therefore, I was asked to place a central line. DESCRIPTION OF PROCEDURE: Consent was obtained for central line placement. The right neck and chest were prepped and draped in a sterile fashion. Timeout was performed. Using ultrasound, the right internal jugular vein was located and 1% lidocaine 3 mL was used to anesthetize the area. Using an 18 gauge access needle and syringe, the right internal jugular vein was accessed. Dark nonpulsatile blood was withdrawn. The syringe was removed and the guidewire was inserted without difficulty. The needle was removed. A stab incision was made at the insertion port with an 11 blade scalpel. A dilator was then placed over the wire and removed. The triple lumen catheter was then advanced over the guidewire and the wire was removed. All lines were accessed and flushed with heparinized saline. The catheter was secured in the usual fashion. The area was washed and dried and sterile bandage was applied. The patient has chest x-ray pending. Job ID: [id number] DocumentID: [id number] Dictated Date: 09/06/2016 15:13:41 Fretted String Instrument Repairer Date: 09/06/2016 19:35:09 Dictated By: SANDRINE BLUE DO
[2016-09-06] MEDS ORDERED: DEXTROSE 50% 50 ML (IMS) SYR ONE ×2 (20:20→21:08)
[2016-09-06] MEDS ORDERED: DEXTROSE 50% 50 ML (IMS) SYR IV ONE (20:30)
[2016-09-06] MEDS ORDERED: D5 1/2 NS 1000 ML IV SOLUTION 1,000 ML IV ONE (20:32)
[2016-09-06] MEDS: ENOXAPARIN 80 MG/0.8 ML (LOVENOX) SYR SC SCH (21:28)
[2016-09-06] MEDS: D5 1/2 NS 1000 ML IV SOLUTION 1,000 ML IV SCH (21:34)
[2016-09-06] MEDS ORDERED: DEXTROSE 50% 50 ML (IMS) SYR IV PRN ×2 (22:00→22:30)
[2016-09-06] MEDS ORDERED: GLUCAGON EMERGENCY 1 MG/KIT IM PRN (22:30)
[2016-09-06] MEDS ORDERED: DEXTROSE 10% IV SOLUTION 1,000 ML IV PRN (22:30)
[2016-09-07] VITALS (46 sets, daily range): BP systolic 76–144; BP diastolic 42–88
[2016-09-07] MEDS: VASOPRESSIN INJECTION 20 UNIT in NS (IVPB) 50 ML IV SCH ×3 (00:05→18:56)
[2016-09-07] MEDS ORDERED: KETOROLAC 30 MG/ML VIAL ONE (00:32)
[2016-09-07 00:35] LABS: INR 1.5 (0.8-1.4); PROTHROMBIN TIME PATIENT 17.4 SEC (12.2-14.7)
[2016-09-07 00:39] LABS: CALCIUM IONIZED 1.07 mmol/L (1.16-1.32); CORRECTED IONIZED CALCIUM 0.98 mmol/L (1.16-1.32)
[2016-09-07 00:43] LABS: ALANINE AMINOTRANSFERASE 68 U/L (0-55); ALBUMIN 2.2 G/DL (3.2-4.5); ANION GAP 15 MMOL/L (5-14); ASPARTATE AMINO TRANSFERASE 152 U/L (5-34); BILIRUBIN,TOTAL 0.8 MG/DL (0.1-1.0); BLOOD UREA NITROGEN 50 MG/DL (7-18); BUN/CREATININE RATIO 26; CALCIUM 7.4 MG/DL (8.5-10.1); CARBON DIOXIDE 14 MMOL/L (21-32); CHLORIDE 108 MMOL/L (98-107); CREATININE SERUM 1.92 MG/DL (0.60-1.30); GFR ESTIMATED 27; GLUCOSE 373 MG/DL (70-105); SODIUM 137 MMOL/L (135-145); TOTAL PROTEIN 4.9 G/DL (6.4-8.2)
[2016-09-07 00:49] LABS: TROPONIN I < 0.30 NG/ML (<0.30)
[2016-09-07] MEDS: HYDROCORTISONE 100 MG/2 ML (Solu-CORTEF) VIAL IV SCH ×5 (00:58→23:55)
[2016-09-07] MEDS: PANTOPRAZOLE 40 MG/10 ML (PROTONIX) VIAL IV SCH ×2 (00:58→12:21)
[2016-09-07] MEDS: inSUlin ASPART (NovoLOG) 1 UNIT/0.01 ML (CHARGE PER UNIT) SC SCH ×7 (01:11→23:54)
[2016-09-07] MEDS ORDERED: SODIUM BICARB 8.4% 50 MEQ/50 ML (ABBOTT) SYR ONE ×4 (01:21→05:50)
[2016-09-07] MEDS ORDERED: fentaNYL INJECTION 100 MCG/2 ML AMP IV PRN (01:30)
[2016-09-07] MEDS ORDERED: ACETAMINOPHEN 650 MG SUPP (TYLENOL) PR ONE (01:30)
[2016-09-07] MEDS ORDERED: KETOROLAC 30 MG/ML VIAL IV ONE (01:30)
[2016-09-07] MEDS: D5 1/2 NS 1000 ML IV SOLUTION 1,000 ML IV SCH (01:37)
[2016-09-07] MEDS: ALBUMIN 5% 12.5 GM/250 ML 250 ML IV SCH ×2 (01:42→01:45)
[2016-09-07] MEDS ORDERED: SODIUM BICARB 8.4% 50 MEQ/50 ML (ABBOTT) SYR IV ONE ×3 (01:45→06:00)
[2016-09-07] MEDS: RT-ALBUTEROL/IPRATROPIUM 3 ML (DUONEB) VIAL INH SCH ×6 (02:07→22:00)
[2016-09-07 04:16] LABS: BASOPHILS % (AUTO) 0 % (0-10); EOSINOPHILS # (AUTO) 0.1 10^3/uL (0.0-0.3); EOSINOPHILS % (AUTO) 3 % (0-10); LYMPHOCYTES # (AUTO) 0.4 X 10^3 (1.0-4.0); LYMPHOCYTES % (AUTO) 18 % (12-44); MEAN CORPUSCULAR HEMOGLOBIN 29 PG (25-34); MEAN CORPUSCULAR HGB CONC 32 G/DL (32-36); MEAN CORPUSCULAR VOLUME 91 FL (80-99); MEAN PLATELET VOLUME 12.7 FL (7.4-10.4); MONOCYTES # (AUTO) 0.3 X 10^3 (0.0-1.0); MONOCYTES % (AUTO) 13 % (0-12); NEUTROPHILS # (AUTO) 1.5 X 10^3 (1.8-7.8); NEUTROPHILS % (AUTO) 66 % (42-75); PLATELET COUNT 136 10^3/uL (130-400); RED CELL DISTRIBUTION WIDTH 13.6 % (10.0-14.5); WHITE BLOOD COUNT 2.2 10^3/uL (4.3-11.0)
[2016-09-07 04:17] LABS: ABG HCO3 18 MMOL/L (23-27); ABG OXYGEN SATURATION 85 % (94-100); ABG PCO2 51 MMHG (35-45); ABG PO2 49 MMHG (79-93); ABG TCO2 19.5 MMOL/L (21.0-31.0)
[2016-09-07 04:19] LABS: ABG PH 7.18 (7.37-7.43); ALLENS TEST ART LINE
[2016-09-07 04:20] LABS: PATIENT TEMP 98.6
[2016-09-07 04:40] LABS: CALCIUM 7.1 MG/DL (8.5-10.1); CREATININE SERUM 1.94 MG/DL (0.60-1.30); MAGNESIUM 1.7 MG/DL (1.8-2.4); PHOSPHORUS 5.3 MG/DL (2.3-4.7); POTASSIUM 3.4 MMOL/L (3.6-5.0)
[2016-09-07 05:10] LABS: ABG BASE EXCESS -8.8 MMOL/L (-2.5-2.5); ABG HCO3 18 MMOL/L (23-27); ABG OXYGEN SATURATION 83 % (94-100); ABG PCO2 53 MMHG (35-45); ABG PO2 49 MMHG (79-93)
[2016-09-07 05:11] LABS: ABG PH 7.16 (7.37-7.43); ALLENS TEST ART LINE; PATIENT TEMP 98.9
[2016-09-07 05:23] LABS: METHEMOGLOBIN 0.9 % (0.4-1.5)
[2016-09-07 05:24] LABS: CARBOXYHEMOGLOBIN 0.9 % (0.5-2.5)
[2016-09-07] MEDS ORDERED: 1/2 NS IV SOLUTION 1,000 ML IV ONE (05:57)
[2016-09-07] MEDS ORDERED: SODIUM BICARBONATE IV SCH ×2 (06:00)
[2016-09-07] MEDS ORDERED: 1/2 NS IV SCH ×2 (06:00)
[2016-09-07] MEDS: MAGNESIUM 1 GM/100 ML IVPB 100 ML IV SCH ×3 (06:12→08:52)
[2016-09-07] MEDS: POTASSIUM CL 10MEQ/50ML IVPB 50 ML IV SCH ×4 (06:12→08:37)
[2016-09-07] MEDS: VANCOMYCIN 1 GM/NS 250 ML IVPB IV SCH ×2 (06:41)
--- NOTE | 2016-09-07 06:42 | Pulmonary Progress Note ---
Subjective Subjective/Events-last exam PT is not waking up after being off sedation since around 345. She is now off levophed and vasopressin. Exam Exam Vital Signs Date Time Temp Pulse Resp B/P (MAP) Pulse Ox O2 Delivery O2 Flow Rate FiO2 09/07/16 06:27 122 25 99 60 09/07/16 06:00 123 24 112/49 99 60.00 09/07/16 05:00 120 20 112/49 94 30.00 09/07/16 04:11 18 09/07/16 04:01 118 24 96 30 09/07/16 04:00 117 23 106/53 96 30.00 09/07/16 03:00 118 23 115/49 97 30.00 09/07/16 02:15 30.00 09/07/16 02:07 122 24 97 35 09/07/16 02:00 121 23 137/59 96 35.00 09/07/16 01:00 128 30 120/49 96 35.00 09/07/16 01:00 127 09/07/16 00:53 100.4 09/07/16 00:49 100.4 09/07/16 00:06 131 24 96 35 09/07/16 00:00 130 24 93/43 35.00 09/07/16 00:00 97 30.00 09/06/16 23:00 126 22 106/46 97 35.00 09/06/16 22:00 121 23 109/50 99 35.00 09/06/16 21:57 121 24 99 40 09/06/16 21:00 118 24 119/55 100 40.00 09/06/16 20:30 117 24 96 40 09/06/16 20:00 97 30.00 09/06/16 20:00 113 23 120/59 99 40.00 09/06/16 19:00 116 24 98/51 100 40.00 09/06/16 19:00 117 09/06/16 18:49 116 24 100 40 09/06/16 18:10 142/72 09/06/16 18:00 106 21 116/60 96 40.00 09/06/16 17:48 98.9 09/06/16 17:00 100.5 09/06/16 17:00 111 22 117/63 96 40.00 09/06/16 16:04 141 26 97 40 09/06/16 16:00 102 21 132/62 92 40.00 09/06/16 16:00 100 40.00 09/06/16 16:00 101.1 09/06/16 15:00 101.8 09/06/16 15:00 98 20 144/71 92 40.00 09/06/16 14:00 108 23 131/66 92 40.00 09/06/16 14:00 101.6 09/06/16 13:39 135 24 98 40 09/06/16 13:00 102 21 115/69 92 40.00 09/06/16 13:00 100.9 09/06/16 13:00 135 09/06/16 12:25 100.4 09/06/16 12:00 99 40.00 09/06/16 12:00 128 24 111/69 97 40.00 09/06/16 11:43 40.00 09/06/16 11:24 96 21.00 09/06/16 11:21 124 24 96 40 09/06/16 11:00 123 23 120/85 89 40.00 09/06/16 11:00 99.5 09/06/16 10:00 98.6 09/06/16 10:00 117 23 124/67 93 40.00 09/06/16 09:25 120 24 96 40 09/06/16 09:00 121 22 136/80 94 60.00 09/06/16 09:00 97.7 09/06/16 08:00 96.9 09/06/16 08:00 120 23 135/71 95 60.00 09/06/16 08:00 99 60.00 09/06/16 07:00 114 09/06/16 07:00 115 24 120/54 95 60.00 09/06/16 07:00 97.3 I & O 09/07/16 07:00 Intake Total 4713 ml Output Total 745 ml Balance 3968 ml General Appearance: Chronically ill, Other (unresponsive on vent) HEENT: PERRL/EOMI Neck: Normal Inspection Respiratory: Chest Non Tender, Lungs Clear, Decreased Breath Sounds Cardiovascular: Regular Rate, Rhythm, No Edema Capillary Refill: Less Than 3 Seconds Gastrointestinal: soft Extremity: Normal Capillary Refill, Normal Inspection Neurologic/Psychiatric: Other Skin: Normal Color, Warm/Dry Lymphatic: No Adenopathy Results Lab Laboratory Tests 09/05/16 20:22 09/06/16 03:30 09/06/16 05:15 09/06/16 23:59 09/07/16 04:05 Assessment/Plan Assessment/Plan Severe sepsis with UTI and pneumonia - Ecoli and S. Aureus -Continue current Abx vanco and merrem - Acute respiratory failure -Continue ventilatory support -ABG reviewed - PT is probably developing ARDS will use permissive hypercapnia -Bicarb gtt started and bicarb boluses given Unresponsive - probably secondary to sedation which has been off since 345am - -Since we are checking chest CT will check CT of head and abdomen too secondary to renal failure will have to do without contrast. RML atelectasis probably secondary to mucous plugging vs aspiration -Check CT of chest - will do bronch if indicated per CT scan Bacteremia - with staph aureus probably secondary to pneumonia -continue vancomycin elevated creatine kinase -mild rhabdomyolysis -- improving -Continue IVF bicarb gtt Septic shock - improving -pt is now off levophed and vasopressin ARF with oliguria - urine output has increased with IVF -Will give liter bolus on NS and increase IVF to 250cc/hr Possible serotonin syndrome (pt is on Effexor at home) temp is now down form 106 to 98.9 metabolic lactic acidosis -Continue Bicarb gtt Hypokalemia -replace 233 45 min was spent with patient, family, and medical team discussing case. Clinical Quality Measures DVT/VTE Risk/Contraindication: Risk Factor Score Per Nursin RFS Level Per Nursing on Admit: 4+=Very High GEOFF HARDIN DO Sep 07, 2016 06:42
--- NOTE | 2016-09-07 07:37 | Diagnostic Imaging Report ---
PROCEDURE: CT chest and abdomen without contrast. TECHNIQUE: Axial images were obtained from the thoracic inlet through the iliac crest without the administration of intravenous contrast. INDICATION: Hypoxia. COMPARISON: Chest radiograph from earlier today. FINDINGS: There is diffuse airspace consolidation throughout both lungs, greatest in the dependent lungs. Small bilateral pleural effusions. Right IJ CVC tip near the RA SVC junction. ETT in good position. NG tube tip and side-port within the stomach. No pericardial effusion. No mediastinal or axillary lymphadenopathy. The andreia are obscured by the airspace consolidation. Mild scattered arterial calcifications. Nonspecific nodular thickening of the left adrenal gland. No acute osseous findings. IMPRESSION: 1. Diffuse airspace consolidation throughout both lungs with air bronchograms are greatest in the lung bases. There are small bilateral pleural effusions. 2. Support lines in good position. 3. Nonspecific nodular thickening of the left adrenal gland. No acute CT findings in the abdomen. Findings discussed with Dr. Oziel Burleson at 7:30 AM on 09/07/2016. Dictated by: Dictated on workstation # [id number]
--- NOTE | 2016-09-07 08:03 | Diagnostic Imaging Report ---
PROCEDURE: CT head without contrast. TECHNIQUE: Multiple contiguous axial images were obtained through the brain without the use of intravenous contrast. INDICATION: Decreased level of consciousness. COMPARISON: Comparison is made with a prior CT study from April 07, 2016. FINDINGS: The examination is mildly limited by motion and resultant streak artifact. Some subtle loss of peters-white differentiation within the right occipital region is believed to be artifactual. There is no definitive territorial loss of peters-white differentiation demonstrated. There is no acute hemorrhage. There is no mass effect or hydrocephalus. The images on today's examination appear to be flipped as the region of low density at the right basal ganglia has been present on the prior examinations on the left. 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 There is no hydrocephalus. Basilar cisterns are patent. There are operative changes of previous right-sided mastoidectomy. The paranasal sinuses are clear. Orbital contents are unremarkable. IMPRESSION: 1. Allowing for limitations related to motion, there is no evidence to suggest an acute intracranial abnormality. There is no definitive loss of peters-white differentiation. Further assessment could be performed with MRI if continued clinical concern. 2. 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 3. Prior operative changes of right mastoidectomy. Dictated by: Dictated on workstation # [id number]
[2016-09-07] MEDS: SODIUM BICARBONATE 8.4% VIAL 150 MEQ in WATER FOR INJECTION, STERILE 1,000 ML IV SCH ×3 (08:37→16:27)
[2016-09-07 08:42] LABS: ABG HCO3 23 MMOL/L (23-27); ABG OXYGEN SATURATION 89 % (94-100); ABG PCO2 64 MMHG (35-45); ABG PO2 58 MMHG (79-93); ABG TCO2 24.7 MMOL/L (21.0-31.0)
[2016-09-07 08:44] LABS: ABG PH 7.19 (7.37-7.43)
[2016-09-07 08:45] LABS: PATIENT TEMP 100.6
[2016-09-07 08:46] LABS: ALLENS TEST ART LINE
[2016-09-07] MEDS: FENTANYL IV SCH (09:02)
[2016-09-07 09:14] LABS: CALCIUM PH 7.25
[2016-09-07] MEDS: MEROPENEM 500 MG in NS (IVPB) 100 ML IV SCH ×2 (09:19→20:59)
[2016-09-07] MEDS: CHLORHEXIDINE 0.12% SOLN 15 ML (PERIDEX) UDC PO SCH ×2 (09:19→20:59)
--- NOTE | 2016-09-07 10:17 | Diagnostic Imaging Report ---
EXAM: CHEST 1 VIEW, AP/PA ONLY INDICATION: Hypoxia. COMPARISON: Chest radiograph 09/06/2016. FINDINGS: ETT tip midway between the clavicles and ari. NG tube tip and side-port overlying the stomach. Right IJ CVC tip near the RA SVC junction. Increasing dense airspace consolidation throughout both lungs. The cardiac silhouette is obscured. Low lung volumes. IMPRESSION: 1. Dense consolidation throughout both lungs has progressed since the prior exam. 2. Stable support lines. Dictated by: Dictated on workstation # [id number]
--- NOTE | 2016-09-07 11:46 | Progress Note-Hospitalist ---
Progress Note HPI/CC on Admission CC: Altered Mental Status HPI: This is a 56 yoWF pt that was seen multiple times this past week for back pain, given pain meds. Pt fell down at home and was found at home. She presented hypotensive in ER. Pt was intubated due to severe sepsis since ABG showed 7.14/49/58 and was not a candidate for Bipap. UA shows TNTC WBCs so we are treated presumed pyelo with severe sepsis.Pt on max pressor therapy with stress dose steroids with Vanc and Meropenem. Pharmacy Review: Pt has severe sepsis along with pyelonephritis She doesn't look well Her CT scan was normal of the head that there was NO mass effect as previously stated She is on the vent Patient Interview: Pt's daughter states that she did wake up and was wondering what was going on, but didn't seem to know exactly what was happening Pt's lungs were clear at this time We will continue the antibiotics Pt was not alert during interview today Scribed by Sophy Almaraz under the direct supervision of Dr. Romero. Progress Notes/Assess & Plan Date Seen 09/07/16 Date Seen by Provider: Sep 07, 2016 Time Seen by Provider: 11:05 Admission Dx/Process Assessment: Severe sepsis with hypotension due to acute pyelonephritis Severe dehydration Recent severe back pain with multiple ER visits for pain meds and surrounding area Acute renal failure Diagonsis/Assessment & Plan Patient having mottling in the lower extremities which is concerning Multiple family members at the bedside Family is very aware of the guarded prognosis Maintain on vancomycin and meropenem No fever currently No fever, blood pressure 100/60 now on levofed again Patient off sedation but infused and not alert Tachycardic at 1 18 bpm Coarse breath sounds all aguilar due to ventilator Cold extremities but mottling seems to be improved compared to pulmonary consultation that was performed earlier today Laboratory Tests 09/06/16 23:59 09/07/16 04:05 Assessment: Severe sepsis with UTI and pneumonia - Ecoli and S. Aureus on Vanc and Asaf Acute respiratory failure Vent D # 3 Unresponsive -on admit due to sepsis RML atelectasis on CXR Bacteremia - with staph aureus on Vanc Elevated creatine kinase -mild rhabdomyolysis Septic shock - improving -pt is was off levophed and vasopressin but restart Levophed due to mild hypotension now on at 3mcg ARF with oliguria Possible serotonin syndrome? metabolic lactic acidosis Hypokalemia on replacement protocol Plan: Pt will continue antibiotic treatment Maintain intubation and ventilator management appreciated by Dr. Burleson Maximum medical management required and prognosis is extremely poor LINO ROMERO DO Sep 07, 2016 11:46
--- NOTE | 2016-09-07 13:31 | Progress Note-Cardiology ---
Cardiology SOAP Progress Note Subjective: Not able to provide any history Still on [facility] vent Objective: I&O/Vital Signs Vital Sign - Last 12Hours 09/07/16 09/07/16 09/07/16 09/07/16 02:00 02:07 02:15 03:00 Pulse 121 122 118 Resp 23 24 23 B/P (MAP) 137/59 115/49 Pulse Ox 96 97 97 O2 Flow Rate 35.00 30.00 30.00 FiO2 35 09/07/16 09/07/16 09/07/16 09/07/16 04:00 04:00 04:00 04:01 Pulse 122 117 118 Resp 18 23 24 B/P (MAP) 106/53 Pulse Ox 96 97 96 96 O2 Flow Rate 30.00 30.00 FiO2 30 09/07/16 09/07/16 09/07/16 09/07/16 04:11 05:00 06:00 06:00 Pulse 120 123 Resp 18 20 24 B/P (MAP) 112/49 112/49 Pulse Ox 94 99 98 O2 Flow Rate 30.00 60.00 60.00 09/07/16 09/07/16 09/07/16 09/07/16 06:27 07:00 08:00 08:19 Temp 100.4 Pulse 122 128 128 Resp 25 23 B/P (MAP) 119/45 140/79 Pulse Ox 99 97 97 O2 Flow Rate 30.00 60.00 FiO2 60 09/07/16 09/07/16 09/07/16 09/07/16 08:23 09:00 10:00 10:47 Pulse 129 124 122 121 Resp 24 23 26 24 B/P (MAP) 106/42 95/65 93/62 95/65 Pulse Ox 97 98 100 100 O2 Flow Rate 60.00 60.00 FiO2 60 60 09/07/16 09/07/16 09/07/16 11:00 12:00 12:17 Temp 98.2 Pulse 122 116 Resp 24 23 B/P (MAP) 128/47 120/50 105/64 97/52 Pulse Ox 98 99 99 O2 Flow Rate 60.00 30.00 60.00 Intake and Output 09/07/16 00:00 Intake Total 3159 ml Output Total 550 ml Balance 2609 ml Weight (Pounds): 190 Weight (Ounces): 3.0 Weight (Calculated Kilograms): 86.877512 Constitutional: other (Intubated, sedated, on mec vent, unresponsive to verbal stimuli) Respiratory: other (on mech vent; fair air entry; bs diminished at the bases) Cardiovascular: regular rate-rhythm, S1 and S2, systolic murmur (soft SEBAS at card base) Gastrointestional: soft, No guarding, audible bowel sounds Extremities: No cyanosis, No significant edema Neurologic/Psychiatric: other (currently intubated and sedated and not able to cooperate with a neuro exam) Skin: No rash on exposed areas, No ulcerations on exposed areas Results/Procedures: Labs Laboratory Tests 09/06/16 15:50: Lactic Acid Level 4.07*H, Total Creatine Kinase 1453H 09/06/16 16:36: Glucometer 70 09/06/16 18:25: Lactic Acid Level 4.15*H 09/06/16 20:19: Glucometer 42*L 09/06/16 21:02: Glucometer 49*L 09/06/16 21:52: Glucometer 220H 09/06/16 23:59: Hemoglobin 10.8L, Prothrombin Time 17.4H, INR Comment 1.5H, Fibrinogen 860H, Sodium Level 137, Potassium Level 4.0, Chloride Level 108H, Carbon Dioxide Level 14L, Anion Gap 15H, Blood Urea Nitrogen 50H, Creatinine 1.92H, Estimat Glomerular Filtration Rate 27, BUN/Creatinine Ratio 26, Glucose Level 373H, Lactic Acid Level 5.14*H, Calcium Level 7.4L, Total Bilirubin 0.8, Aspartate Amino Transf (AST/SGOT) 152H, Alanine Aminotransferase (ALT/SGPT) 68H, Alkaline Phosphatase 49, Troponin I < 0.30, Total Protein 4.9L, Albumin 2.2L 09/07/16 00:00: Total Creatine Kinase 1336H 09/07/16 02:15: Lactic Acid Level 4.40*H 09/07/16 04:03: Blood Gas Puncture Site ART LINE, Blood Gas Patient Temperature 98.6, Arterial Blood pH 7.18*L, Arterial Blood Partial Pressure CO2 51H, Arterial Blood Partial Pressure O2 49L, Arterial Blood HCO3 18L, Arterial Blood Total CO2 19.5L , Arterial Blood Oxygen Saturation 85L, Arterial Blood Base Excess -9.0L, Anmol Test ART LINE, Blood Gas Ventilator Setting YES, Blood Gas Inspired Oxygen 30% 09/07/16 04:05: White Blood Count 2.2L, Red Blood Count 3.40L, Hemoglobin 9.8L, Hematocrit 31L, Mean Corpuscular Volume 91, Mean Corpuscular Hemoglobin 29, Mean Corpuscular Hemoglobin Concent 32, Red Cell Distribution Width 13.6, Platelet Count 136, Mean Platelet Volume 12.7H, Neutrophils (%) (Auto) 66, Lymphocytes (%) (Auto) 18 , Monocytes (%) (Auto) 13H, Eosinophils (%) (Auto) 3, Basophils (%) (Auto) 0, Neutrophils # (Auto) 1.5L, Lymphocytes # (Auto) 0.4L, Monocytes # (Auto) 0.3, Eosinophils # (Auto) 0.1, Basophils # (Auto) 0.0, Sodium Level 139, Potassium Level 3.4L, Chloride Level 107, Carbon Dioxide Level 15L, Anion Gap 17H, Blood Urea Nitrogen 50H, Creatinine 1.94H, Estimat Glomerular Filtration Rate 27, BUN/ Creatinine Ratio 26, Glucose Level 369H, Calcium Level 7.1L, Phosphorus Level 5.3H, Magnesium Level 1.7L 09/07/16 04:29: Glucometer 346H 09/07/16 04:58: Blood Gas Puncture Site ART LINE, Blood Gas Patient Temperature 98.9, Arterial Blood pH 7.16*L, Arterial Blood Partial Pressure CO2 53H, Arterial Blood Partial Pressure O2 49L, Arterial Blood HCO3 18L, Arterial Blood Total CO2 20.0L , Arterial Blood Oxygen Saturation 83L, Arterial Blood Base Excess -8.8L, Anmol Test ART LINE, Carboxyhemoglobin 0.9, Methemoglobin 0.9, Blood Gas Ventilator Setting YES, Blood Gas Inspired Oxygen 30% 09/07/16 08:25: Lactic Acid Level 3.32*H 09/07/16 08:28: Glucometer 182H 09/07/16 08:30: Blood Gas Puncture Site ART LINE, Blood Gas Patient Temperature 100.6, Arterial Blood pH 7.19*L, Arterial Blood Partial Pressure CO2 64H, Arterial Blood Partial Pressure O2 58L, Arterial Blood HCO3 23, Arterial Blood Total CO2 24.7, Arterial Blood Oxygen Saturation 89L, Arterial Blood Base Excess -4.0L, Anmol Test ART LINE, Blood Gas Ventilator Setting YES, Blood Gas Inspired Oxygen 60% 09/07/16 10:48: Lactic Acid Level 2.92*H 09/07/16 12:21: Glucometer 99 Microbiology 09/06/16 Blood Culture - Preliminary, Resulted Staphylococcus Aureus 09/05/16 Gram Stain - Final, Resulted 09/05/16 Sputum Culture - Preliminary, Resulted Staphylococcus Aureus 09/05/16 Urine Culture - Preliminary, Resulted Escherichia Coli A/P: Assessment: Septic shock, related to UTI and pneumonia Acute resp failure No evidence of ACS at this time Card cath of 05/17/14: mild CAD, LVEF 60%, LVEDP at top limit of normal Chronic tobacco use Plan: * Pt currently remains critically ill and management complex * Echo to eval LV function * I spoke with her fam and discussed her CV status * Monitor labs closely DOTTY GOSS MD FACP FAC CCDS Sep 07, 2016 13:31
[2016-09-07 17:14] LABS: ABG BASE EXCESS 1.8 MMOL/L (-2.5-2.5); ABG HCO3 27 MMOL/L (23-27); ABG OXYGEN SATURATION 95 % (94-100); ABG PCO2 58 MMHG (35-45); ABG PO2 74 MMHG (79-93); ABG TCO2 29.1 MMOL/L (21.0-31.0)
[2016-09-07 17:16] LABS: ALLENS TEST YES-POS; PATIENT TEMP 99.6
[2016-09-07] MEDS: morphine INJ 4 MG/ML 1 ML (VIAL/SYRINGE) IVP PRN ×2 (20:16→21:05)
[2016-09-07] MEDS: ENOXAPARIN 80 MG/0.8 ML (LOVENOX) SYR SC SCH (20:59)
[2016-09-07] MEDS ORDERED: NS (IVPB) 50 ML ONE (21:08)
[2016-09-07] MEDS ORDERED: DILTIAZEM 100 MG/VIAL (CARDIZEM) ADD-VANTAGE IV ONE (21:29)
[2016-09-07] MEDS ORDERED: SODIUM CHLORIDE (ADD-VANTAGE) 100 ML IV ONE (21:29)
[2016-09-07] MEDS: DILTIAZEM DRIP 100 MG in SODIUM CHLORIDE (ADD-VANTAGE) 100 ML IV SCH (21:45)
[2016-09-07] MEDS: DEXMEDETOMIDINE INJECTION 200 MCG in NS (IVPB) 50 ML IV SCH (22:06)
[2016-09-07] MEDS ORDERED: DIGOXIN 0.25 MG/ML (LANOXIN) 2 ML AMP ONE (22:55)
[2016-09-07] MEDS ORDERED: DIGOXIN 0.25 MG/ML (LANOXIN) 2 ML AMP IV ONE ×2 (23:15)
[2016-09-07] MEDS: NOREPINEPHRINE 4 MG in D5W 250 ML (IVPB) 250 ML IV SCH (23:28)
[2016-09-08] VITALS (51 sets, daily range): BP systolic 80–123; BP diastolic 34–93
[2016-09-08] MEDS: SODIUM BICARBONATE 8.4% VIAL 150 MEQ in WATER FOR INJECTION, STERILE 1,000 ML IV SCH ×2 (00:02→08:01)
[2016-09-08] MEDS: DEXMEDETOMIDINE INJECTION 200 MCG in NS (IVPB) 50 ML IV SCH ×6 (00:20→21:52)
[2016-09-08] MEDS ORDERED: SODIUM CHLORIDE (ADD-VANTAGE) 100 ML IV ONE (02:11)
[2016-09-08] MEDS ORDERED: DILTIAZEM 100 MG/VIAL (CARDIZEM) ADD-VANTAGE IV ONE (02:11)
[2016-09-08] MEDS: RT-ALBUTEROL/IPRATROPIUM 3 ML (DUONEB) VIAL INH SCH ×6 (02:24→21:35)
[2016-09-08] MEDS: DILTIAZEM DRIP 100 MG in SODIUM CHLORIDE (ADD-VANTAGE) 100 ML IV SCH ×2 (02:54→22:50)
[2016-09-08] MEDS: PANTOPRAZOLE 40 MG/10 ML (PROTONIX) VIAL IV SCH ×2 (03:08→13:53)
[2016-09-08] MEDS: VASOPRESSIN INJECTION 20 UNIT in NS (IVPB) 50 ML IV SCH (03:30)
[2016-09-08] MEDS: inSUlin ASPART (NovoLOG) 1 UNIT/0.01 ML (CHARGE PER UNIT) SC SCH ×5 (04:00→20:00)
[2016-09-08 04:31] LABS: ABG BASE EXCESS 3.6 MMOL/L (-2.5-2.5); ABG HCO3 29 MMOL/L (23-27); ABG OXYGEN SATURATION 97 % (94-100); ABG PCO2 51 MMHG (35-45); ABG PH 7.37 (7.37-7.43); ABG PO2 81 MMHG (79-93); ABG TCO2 30.3 MMOL/L (21.0-31.0)
[2016-09-08 04:31] LABS: BASOPHILS % (AUTO) 0 % (0-10); EOSINOPHILS % (AUTO) 0 % (0-10); LYMPHOCYTES # (AUTO) 0.4 X 10^3 (1.0-4.0); LYMPHOCYTES % (AUTO) 6 % (12-44); MEAN CORPUSCULAR HEMOGLOBIN 29 PG (25-34); MEAN CORPUSCULAR HGB CONC 33 G/DL (32-36); MEAN CORPUSCULAR VOLUME 88 FL (80-99); MEAN PLATELET VOLUME 13.2 FL (7.4-10.4); MONOCYTES # (AUTO) 0.1 X 10^3 (0.0-1.0); MONOCYTES % (AUTO) 1 % (0-12); NEUTROPHILS # (AUTO) 5.9 X 10^3 (1.8-7.8); NEUTROPHILS % (AUTO) 92 % (42-75); PLATELET COUNT 129 10^3/uL (130-400); RED BLOOD COUNT 3.37 10^6/uL (4.35-5.85); RED CELL DISTRIBUTION WIDTH 13.5 % (10.0-14.5); WHITE BLOOD COUNT 6.4 10^3/uL (4.3-11.0)
[2016-09-08 04:33] LABS: ALLENS TEST YES-POS; PATIENT TEMP 97.5
[2016-09-08 04:49] LABS: CALCIUM 7.7 MG/DL (8.5-10.1); CREATININE SERUM 1.29 MG/DL (0.60-1.30); MAGNESIUM 2.2 MG/DL (1.8-2.4); POTASSIUM 3.7 MMOL/L (3.6-5.0)
[2016-09-08] MEDS ORDERED: TROUGH ORDER-PHARMACY XX NR (05:00)
[2016-09-08] MEDS: MAGNESIUM 1 GM/100 ML IVPB 100 ML IV SCH (06:14)
[2016-09-08] MEDS: POTASSIUM CL 10MEQ/50ML IVPB 50 ML IV SCH (06:14)
[2016-09-08] MEDS: VANCOMYCIN 1 GM/NS 250 ML IVPB IV SCH ×4 (06:14→17:47)
[2016-09-08] MEDS: HYDROCORTISONE 100 MG/2 ML (Solu-CORTEF) VIAL IV SCH ×3 (06:14→17:47)
--- NOTE | 2016-09-08 07:26 | Pulmonary Progress Note ---
Subjective Subjective/Events-last exam PT HAS DEVELOPED RIGHT HAND ISCHEMIA Exam Exam Vital Signs Date Time Temp Pulse Resp B/P (MAP) Pulse Ox O2 Delivery O2 Flow Rate FiO2 09/08/16 06:54 108 28 100 55 09/08/16 06:45 104 28 101/61 94 55.00 09/08/16 06:30 105 25 109/58 95 55.00 09/08/16 06:15 118 24 98/59 55.00 09/08/16 06:00 103 30 102/56 55.00 09/08/16 05:45 107 26 103/57 100 55.00 09/08/16 05:30 105 24 105/59 100 55.00 09/08/16 05:15 101 21 96/55 100 55.00 09/08/16 05:00 93 39 96/57 55.00 09/08/16 04:45 101 24 93/53 55.00 09/08/16 04:30 93 13 90/50 100 55.00 09/08/16 04:15 97.5 60 25 80/49 100 55.00 09/08/16 04:00 98.2 113 27 100/56 100 55.00 09/08/16 04:00 98 55 09/08/16 03:49 112 27 100 55 09/08/16 03:45 111 25 95/55 100 55.00 09/08/16 03:30 117 25 92/54 100 55.00 09/08/16 03:15 116 24 105/57 100 55.00 09/08/16 03:00 117 26 108/58 100 55.00 98/59 09/08/16 02:54 114 103/55 09/08/16 02:45 128 28 105/59 100 55.00 09/08/16 02:30 118 30 99/54 97 55.00 09/08/16 02:25 125 26 99 55 09/08/16 02:15 129 24 106/57 100 55.00 09/08/16 02:00 114 25 99/55 100 55.00 100/72 09/08/16 01:45 122 24 99/52 100 55.00 09/08/16 01:30 128 24 106/55 100 55.00 09/08/16 01:15 126 23 106/55 100 55.00 09/08/16 01:00 118 09/08/16 01:00 118 26 95/55 100 55.00 96/76 09/08/16 00:45 133 23 96/54 100 55.00 09/08/16 00:30 138 24 99/55 100 55.00 09/08/16 00:15 126 23 94/53 100 55.00 09/08/16 00:05 135 24 100 55 09/08/16 00:00 98 55 09/08/16 00:00 98.4 134 23 97/52 100 55.00 09/07/16 23:45 141 24 96/47 97 55.00 09/07/16 23:30 135 24 86/51 100 55.00 09/07/16 23:15 124 24 83/48 100 55.00 09/07/16 23:00 138 24 94/50 100 55.00 82/67 09/07/16 22:45 146 23 92/51 100 55.00 09/07/16 22:30 135 24 87/51 100 55.00 09/07/16 22:15 149 17 107/60 99 55.00 09/07/16 22:10 156 98/59 09/07/16 22:02 149 24 98 55 09/07/16 22:00 168 24 92/62 100 55.00 94/67 09/07/16 21:45 149 25 81/62 100 55.00 09/07/16 21:30 158 24 86/56 100 55.00 76/58 09/07/16 21:15 160 24 87/51 55.00 09/07/16 21:00 109 24 137/69 55.00 117/67 09/07/16 20:45 110 14 144/71 55.00 09/07/16 20:30 112 28 139/68 100 55.00 09/07/16 20:15 112 26 144/68 100 55.00 09/07/16 20:00 98.2 113 25 142/88 100 55.00 113/73 09/07/16 20:00 98 55 09/07/16 19:45 114 27 141/65 100 55.00 09/07/16 19:30 116 24 140/65 100 55.00 09/07/16 19:15 117 26 138/65 100 55.00 09/07/16 19:00 120 25 134/63 100 55.00 102/64 6/3/17 19:00 120 09/07/16 18:36 120 26 100 55 09/07/16 18:00 120 26 121/51 100 55.00 96/67 09/07/16 17:00 120 25 127/54 100 55.00 97/83 09/07/16 16:15 99.9 120 25 122/53 100 60.00 90/57 09/07/16 16:00 100 55 09/07/16 16:00 121 25 117/52 100 60.00 89/48 09/07/16 15:50 120 25 100 55 09/07/16 15:00 117 25 113/50 100 60.00 91/54 09/07/16 14:00 112 25 124/54 100 60.00 94/58 09/07/16 13:53 112 24 100 60 09/07/16 13:00 112 23 111/53 100 60.00 100/50 09/07/16 13:00 112 09/07/16 12:17 98.2 116 23 120/50 99 60.00 97/52 09/07/16 12:00 99 60 09/07/16 11:00 122 24 128/47 98 60.00 105/64 09/07/16 10:47 121 24 100 60 09/07/16 10:00 122 26 95/65 100 60.00 95/65 09/07/16 09:00 124 23 106/42 98 60.00 93/62 09/07/16 08:23 129 24 97 60 09/07/16 08:19 100.4 128 23 119/45 97 60.00 140/79 09/07/16 08:00 97 60 I & O 09/08/16 07:00 Intake Total 1900 ml Output Total 1405 ml Balance 495 ml General Appearance: Chronically ill, Moderate Distress, Other (PT IS UNCOMFORTABLE CURRETNLY - NEEDS MORE SEDATION) HEENT: PERRL/EOMI Neck: Normal Inspection Respiratory: Chest Non Tender, Lungs Clear, Decreased Breath Sounds Cardiovascular: Regular Rate, Rhythm, No Edema Capillary Refill: Less Than 3 Seconds Gastrointestinal: soft Extremity: Normal Capillary Refill, Normal Inspection Neurologic/Psychiatric: Other Skin: Normal Color, Warm/Dry Lymphatic: No Adenopathy Results Lab Laboratory Tests 09/06/16 23:59 09/07/16 04:05 09/08/16 04:15 09/08/16 04:20 Assessment/Plan Assessment/Plan Severe sepsis with UTI and pneumonia - Ecoli and S. Aureus - vanco and change Merrem to Rocephin - Acute respiratory failure with ARDS Pa02/Fi02 = 121 - AC 450/ - Diprivan -CT scan reviewed Right hand ischemia - appears improved since d/cing art line -D/C arterial line -arterial/venous dopplers reviewed. -Titrate LEVOPHED as tolerated . Bacteremia - with staph aureus probably secondary to pneumonia -continue vancomycin elevated creatine kinase -mild rhabdomyolysis -- improving -IVF Septic shock - improving -TITRATE levophed TO D/C --LR - will give 1 liter bolus -Solucortef -CVP monitoring metabolic lactic acidosis- RESOLVED PROGNOSIS IS GUARDED AT BEST 233 45 min was spent with patient, family, and medical team discussing case. Clinical Quality Measures DVT/VTE Risk/Contraindication: Risk Factor Score Per Nursin RFS Level Per Nursing on Admit: 4+=Very High GEOFF HARDIN DO Sep 08, 2016 07:26
[2016-09-08] MEDS: PROPOFOL DRIP (ICU) 100 ML IV SCH ×2 (08:38→17:48)
[2016-09-08] MEDS ORDERED: LACTATED RINGERS 1,000 ML IV ONE ×2 (08:45→13:45)
--- NOTE | 2016-09-08 09:23 | Diagnostic Imaging Report ---
INDICATION: Respiratory distress. Caparison is made with prior examination from 10/04/16. FINDINGS: The heart size is normal. There is bilateral airspace disease. Lines and tubes are in satisfactory position. There is no pleural effusion or pneumothorax. Mediastinum is unremarkable. IMPRESSION: Persistent diffuse bilateral airspace disease Dictated by: Dictated on workstation # [id number]
[2016-09-08] MEDS: CHLORHEXIDINE 0.12% SOLN 15 ML (PERIDEX) UDC PO SCH ×2 (09:25→20:45)
[2016-09-08] MEDS: cefTRIAXone INJECTION 1,000 MG in NS (IVPB) 50 ML IV SCH (09:25)
[2016-09-08 09:43] LABS: ABG BASE EXCESS 4.9 MMOL/L (-2.5-2.5); ABG HCO3 29 MMOL/L (23-27); ABG OXYGEN SATURATION 95 % (94-100); ABG PCO2 52 MMHG (35-45); ABG PH 7.38 (7.37-7.43); ABG PO2 85 MMHG (79-93); ABG TCO2 30.8 MMOL/L (21.0-31.0); ALLENS TEST YES-POS
[2016-09-08 10:02] LABS: BASOPHILS % (AUTO) 0 % (0-10); EOSINOPHILS % (AUTO) 0 % (0-10); LYMPHOCYTES # (AUTO) 0.5 X 10^3 (1.0-4.0); LYMPHOCYTES % (AUTO) 6 % (12-44); MEAN CORPUSCULAR HEMOGLOBIN 29 PG (25-34); MEAN CORPUSCULAR HGB CONC 33 G/DL (32-36); MEAN CORPUSCULAR VOLUME 89 FL (80-99); MEAN PLATELET VOLUME 12.8 FL (7.4-10.4); MONOCYTES # (AUTO) 0.3 X 10^3 (0.0-1.0); MONOCYTES % (AUTO) 3 % (0-12); NEUTROPHILS # (AUTO) 8.2 X 10^3 (1.8-7.8); NEUTROPHILS % (AUTO) 91 % (42-75); PLATELET COUNT 134 10^3/uL (130-400); RED BLOOD COUNT 3.42 10^6/uL (4.35-5.85); RED CELL DISTRIBUTION WIDTH 13.6 % (10.0-14.5); RETICULOCYTE % 0.43 % (0.50-2.40); WHITE BLOOD COUNT 9.1 10^3/uL (4.3-11.0)
[2016-09-08 10:03] LABS: PATH WILL NEED TO REVIEW SMEAR PATH TO REVIEW
[2016-09-08 10:07] LABS: INR 1.2 (0.8-1.4); PROTHROMBIN TIME PATIENT 14.4 SEC (12.2-14.7)
--- NOTE | 2016-09-08 10:10 | Diagnostic Imaging Report ---
INDICATION: Discoloration of right hand. TECHNIQUE: Multiple realtime grayscale images were obtained of the right upper extremity arterial system in various projections. Duplex Doppler and color Doppler images were also obtained. FINDINGS: There appears to be slight diminished flow in the right renal artery without focal stenosis. There is also diminished flow in the distal right ulnar artery without focal stenosis. No intraluminal filling defects are appreciated to suggest thrombus. The right subclavian, axillary and brachial artery are widely patent. There are no abnormal right upper extremity fluid collections or masses. IMPRESSION: Mildly diminished flow in the distal right radial and ulnar artery without focal stenosis or evidence of intraluminal thrombus. Recommend clinical correlation and, if warranted, followup with formal angiography. Dictated by: Dictated on workstation # [id number]
--- NOTE | 2016-09-08 10:17 | Diagnostic Imaging Report ---
INDICATION: Right hand discoloration. TECHNIQUE: Multiple real-time grayscale images were obtained of the right upper extremity in various projections. Duplex Doppler and color Doppler images were also obtained. FINDINGS: The right jugular, subclavian, axillary, brachial, cephalic and basilic veins demonstrate normal response to compression, augmentation and Valsalva. There are no abnormal right upper extremity fluid collections or masses. IMPRESSION: No evidence of deep venous thrombosis in the right upper extremity. Dictated by: Dictated on workstation # [id number]
[2016-09-08 10:33] LABS: BAND NEUTROPHILS 10 %; BASOPHILS % (MANUAL) 0 %; EOSINOPHILS % (MANUAL) 0 %; LYMPHOCYTES % (MANUAL) 11 %; METAMYELOCYTES % 2 %; NEUTROPHILS % (MANUAL) 72 %
--- NOTE | 2016-09-08 11:01 | Progress Note-Hospitalist ---
Progress Note HPI/CC on Admission CC: Altered Mental Status HPI: This is a 56 yoWF pt that was seen multiple times this past week for back pain, given pain meds. Pt fell down at home and was found at home. She presented hypotensive in ER. Pt was intubated due to severe sepsis since ABG showed 7.14/49/58 and was not a candidate for Bipap. UA shows TNTC WBCs so we are treated presumed pyelo with severe sepsis.Pt on max pressor therapy with stress dose steroids with Vanc and Meropenem. Pharmacy Review: Pt has severe sepsis along with pyelonephritis She doesn't look well Her CT scan was normal of the head that there was NO mass effect as previously stated She is on the vent Patient Interview: Pt's daughter states that she did wake up and was wondering what was going on, but didn't seem to know exactly what was happening Pt's lungs were clear at this time We will continue the antibiotics Pt was not alert during interview today Scribed by Sophy Almaraz under the direct supervision of Dr. Vuong. Progress Notes/Assess & Plan Date Seen 09/08/16 Date Seen by Provider: Sep 07, 2016 Time Seen by Provider: 11:05 Admission Dx/Process Assessment: Severe sepsis with hypotension due to acute pyelonephritis Severe dehydration Recent severe back pain with multiple ER visits for pain meds and surrounding area Acute renal failure Diagonsis/Assessment & Plan Fever continues Ultrasound of the right arm will be done arterial and venous due to ischemic changes so will try her best to wean off Levophed pressor therapy Kidneys are doing well Overall prognosis is extremely guarded On Diprivan and Precedex 101.85 fever, blood pressure 112/72 on Levophed 2.5mcg Tachycardic at 120 bpm Improved breath sounds Cold extremities but mottling seems to be improved but noted right arm slightly blue/cyanotic Laboratory Tests 09/08/16 04:15 09/08/16 04:20 09/08/16 09:42 Assessment: Severe sepsis with UTI and pneumonia - Ecoli and S. Aureus on Vanc and Asaf Acute respiratory failure Vent D # 4 Unresponsive -on admit due to sepsis RML atelectasis on CXR Bacteremia - with staph aureus on Vanc Elevated creatine kinase -mild rhabdomyolysis Septic shock - improving -pt is is on Levophed at 2.5mcg ARF with oliguria Possible serotonin syndrome? Metabolic lactic acidosis Hypokalemia on replacement protocol Plan: Pt will continue antibiotic treatment Maintain intubation and ventilator management appreciated by Dr. Burleson Maximum medical management required and prognosis is extremely poor check right arm USG LINO VUONG DO Sep 08, 2016 11:01
[2016-09-08] MEDS: LACTATED RINGERS 1,000 ML IV SCH ×3 (11:40→21:52)
[2016-09-08] MEDS: NOREPINEPHRINE 4 MG in D5W 250 ML (IVPB) 250 ML IV SCH (13:53)
--- NOTE | 2016-09-08 15:06 | Progress Note-Cardiology ---
Cardiology SOAP Progress Note Subjective: Still intubated and on [facility] vent Unable to provide any history Objective: I&O/Vital Signs Vital Sign - Last 12Hours 09/08/16 09/08/16 09/08/16 09/08/16 03:30 03:45 03:49 04:00 Pulse 117 111 112 Resp 25 B/P (MAP) 92/54 95/55 Pulse Ox 100 100 100 98 O2 Flow Rate 55.00 55.00 FiO2 55 55 09/08/16 09/08/16 09/08/16 09/08/16 04:00 04:15 04:30 04:45 Temp 98.2 97.5 Pulse 113 60 93 101 Resp 27 24 B/P (MAP) 100/56 80/49 90/50 93/53 Pulse Ox 100 100 100 O2 Flow Rate 55.00 55.00 55.00 55.00 09/08/16 09/08/16 09/08/16 09/08/16 05:00 05:15 05:30 05:45 Pulse 93 101 105 107 Resp 39 24 26 B/P (MAP) 96/57 96/55 105/59 103/57 Pulse Ox 100 100 100 O2 Flow Rate 55.00 55.00 55.00 55.00 09/08/16 09/08/16 09/08/16 09/08/16 06:00 06:15 06:30 06:45 Pulse 103 118 105 104 Resp 30 24 28 B/P (MAP) 102/56 98/59 109/58 101/61 Pulse Ox 95 94 O2 Flow Rate 55.00 55.00 55.00 55.00 09/08/16 09/08/16 09/08/16 09/08/16 06:54 07:00 07:00 08:00 Temp 99.6 100.9 Pulse 108 109 93 112 Resp 28 29 23 B/P (MAP) 102/58 118/61 111/93 Pulse Ox 100 94 96 O2 Flow Rate 55.00 55.00 FiO2 55 09/08/16 09/08/16 09/08/16 09/08/16 08:00 08:00 08:02 08:04 Temp 101.4 B/P (MAP) 142/62 Pulse Ox 98 FiO2 55 55 09/08/16 09/08/16 09/08/16 09/08/16 08:12 09:00 09:30 10:00 Temp 101.8 102.1 102.0 Pulse 103 101 101 Resp 11 29 B/P (MAP) 123/70 114/59 Pulse Ox 96 96 O2 Flow Rate 55.00 55.00 09/08/16 09/08/16 09/08/16 09/08/16 10:20 11:45 11:47 12:00 Temp 99.1 98.6 Pulse 98 91 90 Resp 28 28 12 B/P (MAP) 82/66 91/51 Pulse Ox 94 97 98 98 O2 Flow Rate 55.00 55.00 FiO2 55 55 09/08/16 09/08/16 13:00 14:26 Pulse 82 92 Resp 29 Pulse Ox 100 FiO2 55 Intake and Output 09/08/16 00:00 Intake Total 1150 ml Output Total 655 ml Balance 495 ml Weight (Pounds): 201 Weight (Ounces): 3.0 Weight (Calculated Kilograms): 91.878822 Constitutional: other (Intubated, sedated, on mec vent, unresponsive to verbal stimuli) Respiratory: other (on mech vent; fair air entry; bs diminished at the bases) Cardiovascular: regular rate-rhythm, S1 and S2, systolic murmur (soft SEBAS at card base) Gastrointestional: soft, No guarding, audible bowel sounds Extremities: No cyanosis, No significant edema Neurologic/Psychiatric: other (currently intubated and sedated and not able to cooperate with a neuro exam) Skin: No rash on exposed areas, No ulcerations on exposed areas Results/Procedures: Labs Laboratory Tests 09/07/16 17:01: Blood Gas Puncture Site RIGHT RADIAL, Blood Gas Patient Temperature 99.6, Arterial Blood pH 7.30*L, Arterial Blood Partial Pressure CO2 58H, Arterial Blood Partial Pressure O2 74L, Arterial Blood HCO3 27, Arterial Blood Total CO2 29.1, Arterial Blood Oxygen Saturation 95, Arterial Blood Base Excess 1.8, Anmol Test YES-POS, Blood Gas Ventilator Setting YES, Blood Gas Inspired Oxygen 55% 09/07/16 20:24: Glucometer 81 09/07/16 23:54: Glucometer 94 09/08/16 04:15: White Blood Count 6.4, Red Blood Count 3.37L, Hemoglobin 9.8L, Hematocrit 30L, Mean Corpuscular Volume 88, Mean Corpuscular Hemoglobin 29, Mean Corpuscular Hemoglobin Concent 33, Red Cell Distribution Width 13.5, Platelet Count 129L, Mean Platelet Volume 13.2H, Neutrophils (%) (Auto) 92H, Lymphocytes (%) (Auto) 6L, Monocytes (%) (Auto) 1, Eosinophils (%) (Auto) 0, Basophils (%) (Auto) 0, Neutrophils # (Auto) 5.9, Lymphocytes # (Auto) 0.4L, Monocytes # (Auto) 0.1, Eosinophils # (Auto) 0.0, Basophils # (Auto) 0.0 09/08/16 04:20: Blood Gas Puncture Site RIGHT RADIAL, Blood Gas Patient Temperature 97.5, Arterial Blood pH 7.37, Arterial Blood Partial Pressure CO2 51H, Arterial Blood Partial Pressure O2 81, Arterial Blood HCO3 29H, Arterial Blood Total CO2 30.3, Arterial Blood Oxygen Saturation 97, Arterial Blood Base Excess 3.6H, Anmol Test YES-POS, Blood Gas Ventilator Setting YES, Blood Gas Inspired Oxygen 55%, Sodium Level 142, Potassium Level 3.7, Chloride Level 100, Carbon Dioxide Level 26, Anion Gap 16H, Blood Urea Nitrogen 59H, Creatinine 1.29, Estimat Glomerular Filtration Rate 43, BUN/Creatinine Ratio 46, Glucose Level 106H, Calcium Level 7.7L, Phosphorus Level 6.0H, Magnesium Level 2.2, Vancomycin Level Trough 9.0L 09/08/16 09:32: Blood Gas Puncture Site LR, Blood Gas Patient Temperature 102.0, Arterial Blood pH 7.38, Arterial Blood Partial Pressure CO2 52H, Arterial Blood Partial Pressure O2 85, Arterial Blood HCO3 29H, Arterial Blood Total CO2 30.8, Arterial Blood Oxygen Saturation 95, Arterial Blood Base Excess 4.9H, Anmol Test YES-POS, Blood Gas Ventilator Setting YES, Blood Gas Inspired Oxygen 55%, Glucometer 108 09/08/16 09:42: White Blood Count 9.1, Red Blood Count 3.42L, Hemoglobin 10.0L, Hematocrit 31L, Mean Corpuscular Volume 89, Mean Corpuscular Hemoglobin 29, Mean Corpuscular Hemoglobin Concent 33, Red Cell Distribution Width 13.6, Platelet Count 134, Mean Platelet Volume 12.8H, Neutrophils (%) (Auto) 91H, Lymphocytes (%) (Auto) 6L, Monocytes (%) (Auto) 3, Eosinophils (%) (Auto) 0, Basophils (%) (Auto) 0, Neutrophils # (Auto) 8.2H, Lymphocytes # (Auto) 0.5L, Monocytes # (Auto) 0.3, Eosinophils # (Auto) 0.0, Basophils # (Auto) 0.0, Neutrophils % (Manual) 72, Lymphocytes % (Manual) 11, Monocytes % (Manual) 5, Eosinophils % (Manual) 0, Basophils % (Manual) 0, Metamyelocytes % 2, Band Neutrophils 10, Blood Morphology Comment NORMAL, Absolute Reticulocyte Count 15L, Percent Reticulocyte Count 0.43L, Prothrombin Time 14.4, INR Comment 1.2, Activated Partial Thromboplast Time 40H, Fibrinogen 817H, D-Dimer 12.76H 09/08/16 11:43: Glucometer 62L Microbiology 09/06/16 Blood Culture - Preliminary, Resulted Staphylococcus Aureus 09/07/16 Gram Stain - Final, Resulted 09/07/16 Sputum Culture - Preliminary, Resulted Staphylococcus Aureus 09/05/16 Urine Culture - Final, Complete Escherichia Coli A/P: Assessment: Septic shock, related to UTI and pneumonia Acute resp failure PAF with RVR, likely related to acute illness and resp failure requiring mech ventilation Echo on 09/08/16: LVEF 60%, triv MR and TR, no valvular stenosis, PASP 30-35 mmHg No evidence of ACS at this time Card cath of 05/17/14: mild CAD, LVEF 60%, LVEDP at top limit of normal Chronic tobacco use Plan: * Pt currently remains critically ill and management complex * iv dilt prn for vent rate control * Enoxaparin for DVT and stroke prophylaxis * Monitor labs closely DOTTY GOSS MD FACP [facility] CCDS Sep 08, 2016 15:06
[2016-09-08] MEDS: ENOXAPARIN 80 MG/0.8 ML (LOVENOX) SYR SC SCH (20:47)
[2016-09-08] MEDS: morphine INJ 4 MG/ML 1 ML (VIAL/SYRINGE) IVP PRN (23:10)
[2016-09-09] VITALS (48 sets, daily range): BP systolic 70–132; BP diastolic 20–81
[2016-09-09] MEDS: HYDROCORTISONE 100 MG/2 ML (Solu-CORTEF) VIAL IV SCH ×4 (00:10→18:24)
[2016-09-09] MEDS: PANTOPRAZOLE 40 MG/10 ML (PROTONIX) VIAL IV SCH ×2 (01:22→12:49)
[2016-09-09] MEDS: RT-ALBUTEROL/IPRATROPIUM 3 ML (DUONEB) VIAL INH SCH ×6 (02:20→22:25)
[2016-09-09] MEDS: DEXMEDETOMIDINE INJECTION 200 MCG in NS (IVPB) 50 ML IV SCH ×6 (02:21→23:37)
[2016-09-09] MEDS: morphine INJ 4 MG/ML 1 ML (VIAL/SYRINGE) IVP PRN ×4 (02:56→22:26)
[2016-09-09] MEDS: inSUlin ASPART (NovoLOG) 1 UNIT/0.01 ML (CHARGE PER UNIT) SC SCH ×6 (04:00→22:11)
[2016-09-09 04:05] LABS: ABG BASE EXCESS -1.1 MMOL/L (-2.5-2.5); ABG HCO3 25 MMOL/L (23-27); ABG OXYGEN SATURATION 90 % (94-100); ABG PCO2 52 MMHG (35-45); ABG PO2 58 MMHG (79-93); ABG TCO2 26.6 MMOL/L (21.0-31.0)
[2016-09-09 04:09] LABS: ABG PH 7.29 (7.37-7.43); ALLENS TEST YES-POS; BASOPHILS % (AUTO) 0 % (0-10); EOSINOPHILS % (AUTO) 0 % (0-10); LYMPHOCYTES # (AUTO) 0.8 X 10^3 (1.0-4.0); LYMPHOCYTES % (AUTO) 7 % (12-44); MEAN CORPUSCULAR HEMOGLOBIN 29 PG (25-34); MEAN CORPUSCULAR HGB CONC 32 G/DL (32-36); MEAN CORPUSCULAR VOLUME 92 FL (80-99); MEAN PLATELET VOLUME 12.8 FL (7.4-10.4); MONOCYTES # (AUTO) 0.3 X 10^3 (0.0-1.0); MONOCYTES % (AUTO) 2 % (0-12); NEUTROPHILS # (AUTO) 11.3 X 10^3 (1.8-7.8); NEUTROPHILS % (AUTO) 91 % (42-75); PATIENT TEMP 96.1; PLATELET COUNT 127 10^3/uL (130-400); RED BLOOD COUNT 3.38 10^6/uL (4.35-5.85); RED CELL DISTRIBUTION WIDTH 14.1 % (10.0-14.5); WHITE BLOOD COUNT 12.4 10^3/uL (4.3-11.0)
[2016-09-09] MEDS: LACTATED RINGERS 1,000 ML IV SCH ×4 (04:32→23:57)
[2016-09-09 04:36] LABS: CALCIUM 8.1 MG/DL (8.5-10.1); CREATININE SERUM 1.02 MG/DL (0.60-1.30); MAGNESIUM 2.6 MG/DL (1.8-2.4); PHOSPHORUS 5.5 MG/DL (2.3-4.7); POTASSIUM 3.5 MMOL/L (3.6-5.0)
[2016-09-09 04:50] LABS: ABG BASE EXCESS -1.7 MMOL/L (-2.5-2.5); ABG HCO3 24 MMOL/L (23-27); ABG OXYGEN SATURATION 92 % (94-100); ABG PCO2 54 MMHG (35-45); ABG PO2 67 MMHG (79-93); ABG TCO2 26.2 MMOL/L (21.0-31.0)
[2016-09-09 04:52] LABS: ABG PH 7.27 (7.37-7.43); ALLENS TEST YES-POS; PATIENT TEMP 97.3
[2016-09-09] MEDS: POTASSIUM CL 10MEQ/50ML IVPB 50 ML IV SCH ×6 (06:00→09:48)
[2016-09-09] MEDS: MAGNESIUM 1 GM/100 ML IVPB 100 ML IV SCH (06:00)
[2016-09-09] MEDS: VANCOMYCIN 1 GM/NS 250 ML IVPB IV SCH ×4 (06:03→18:24)
--- NOTE | 2016-09-09 06:35 | ECHOCARDIOGRAPHY REPORT ---
DATE OF SERVICE: 09/08/2016 ECHOCARDIOGRAM ORDERING PHYSICIAN: Dr. Scruggs. PRIMARY CARE PHYSICIAN: Dr. Vuong. OTHER PHYSICIANS: [facility]. MEASUREMENTS: LV diameter diastolic 4.7, IVS thickness diastolic 1. LVPW thickness diastolic 1.1. Aortic root 3.2. Left atrium 3.4. DESCRIPTION: Two dimensional echocardiography shows well-preserved global left ventricular systolic function without distinct regional wall motion abnormality. Left ventricular ejection fraction approximately 60%. Study is technically difficult on account of considerable pulmonary interference. Aortic, mitral and tricuspid valve leaflets, to the extent visualized, seem to have good leaflet excursion. Aortic valve leaflet structure is not very well visualized. Doppler imaging shows trivial mitral and tricuspid regurgitation. Pulmonary artery systolic pressure is estimated to be 30 mmHg to 35 mmHg. There is no Doppler evidence of significant valvular stenosis. CONCLUSIONS: 1. Well preserved global left ventricular systolic function with ejection fraction approximately 60%. 2. Trivial mitral and tricuspid regurgitation. 3. No evidence of significant valvular stenosis. 4. Pulmonary artery systolic pressure is estimated to be 30 mmHg to 35 mmHg. Job ID: [id number] DocumentID: [id number] Dictated Date: 09/08/2016 15:18:34 Pastoral Assistant Date: 09/08/2016 18:29:23 Dictated By: DOTTY SCRUGGS MD, MA, FACP, FACC,
--- NOTE | 2016-09-09 07:53 | Pulmonary Progress Note ---
Subjective Subjective/Events-last exam PT is doing slightly better. Right hand appears improved. Exam Exam Vital Signs Date Time Temp Pulse Resp B/P (MAP) Pulse Ox O2 Delivery O2 Flow Rate FiO2 09/09/16 06:27 110 31 94 55 09/09/16 06:00 97.7 108 104/63 99 55.00 09/09/16 05:20 98 21 99/37 96 Mechanical Ventilator 55.00 09/09/16 05:00 97.2 101 31 103/77 97 55.00 09/09/16 04:00 97.7 114 12 82/52 99 55.00 09/09/16 04:00 95 55 09/09/16 03:52 100 28 97 55 09/09/16 03:00 95.1 100 23 105/80 96 55.00 09/09/16 02:21 85 33 96 55 09/09/16 02:00 94.9 83 18 112/62 100 55.00 09/09/16 01:00 85 09/09/16 01:00 96.8 84 21 100/58 100 55.00 09/09/16 00:35 87 31 100 55 09/09/16 00:00 98.4 87 9 93/52 99 55.00 09/09/16 00:00 99 55 09/08/16 23:00 99.0 98 21 90/57 99 55.00 09/08/16 22:00 97.9 92 15 108/65 99 55.00 09/08/16 21:36 85 30 100 55 09/08/16 21:00 96.8 91 26 100/49 100 55.00 09/08/16 20:00 98 55 09/08/16 20:00 98.6 91 29 89/52 100 55.00 09/08/16 19:50 92 30 100 55 09/08/16 19:00 99.8 98 31 96/60 100 55.00 09/08/16 19:00 99 09/08/16 18:20 94 32 100 55 09/08/16 18:00 100.8 93 7 94/58 100 55.00 09/08/16 17:00 100.4 95 12 101/58 100 55.00 09/08/16 16:38 96 29 100 55 09/08/16 16:00 99.6 92 15 111/61 100 55.00 09/08/16 15:08 98 55 09/08/16 15:00 98.7 93 11 117/61 100 55.00 09/08/16 14:26 92 29 100 55 09/08/16 14:00 97.8 89 13 112/72 100 55.00 09/08/16 13:00 82 09/08/16 13:00 97.3 82 13 100/34 100 55.00 09/08/16 12:00 98.6 90 12 91/51 98 55.00 09/08/16 11:47 98 55 09/08/16 11:45 99.1 91 28 82/66 97 55.00 09/08/16 10:20 98 28 94 55 09/08/16 10:00 102.0 101 29 114/59 96 55.00 09/08/16 09:30 102.1 09/08/16 09:00 101.8 101 11 123/70 96 55.00 09/08/16 08:12 103 09/08/16 08:04 55 09/08/16 08:02 142/62 09/08/16 08:00 101.4 09/08/16 08:00 98 55 09/08/16 08:00 100.9 112 23 118/61 96 55.00 111/93 I & O 09/09/16 07:00 Intake Total 5322 ml Output Total 2000 ml Balance 3322 ml General Appearance: Chronically ill, Moderate Distress, Other (PT IS UNCOMFORTABLE CURRETNLY - NEEDS MORE SEDATION) HEENT: PERRL/EOMI Neck: Normal Inspection Respiratory: Chest Non Tender, Lungs Clear, Decreased Breath Sounds Cardiovascular: Regular Rate, Rhythm, No Edema Capillary Refill: Less Than 3 Seconds Gastrointestinal: soft Extremity: Normal Capillary Refill, Normal Inspection Neurologic/Psychiatric: Other Skin: Normal Color, Warm/Dry Lymphatic: No Adenopathy Results Lab Laboratory Tests 09/08/16 04:15 09/08/16 04:20 09/08/16 09:42 09/09/16 03:58 Assessment/Plan Assessment/Plan Severe sepsis with UTI and pneumonia - Ecoli and S. Aureus - vanco and change Merrem to Rocephin - Acute respiratory failure with ARDS Pa02/Fi02 = 121 - AC 450/ - Diprivan -CT scan reviewed Right hand ischemia - appears improved since d/cing art line -D/C arterial line -arterial/venous dopplers reviewed. -Titrate LEVOPHED as tolerated . Bacteremia - with staph aureus probably secondary to pneumonia -continue vancomycin elevated creatine kinase -mild rhabdomyolysis -- improving -IVF Septic shock - improving -TITRATE levophed TO D/C --LR - will give 1 liter bolus -Solucortef -CVP monitoring metabolic lactic acidosis- RESOLVED PROGNOSIS IS GUARDED AT BEST 233 45 min was spent with patient, family, and medical team discussing case. Clinical Quality Measures DVT/VTE Risk/Contraindication: Risk Factor Score Per Nursin RFS Level Per Nursing on Admit: 4+=Very High GEOFF HARDIN DO Sep 09, 2016 07:52
[2016-09-09] MEDS ORDERED: LACTATED RINGERS 1,000 ML IV ONE ×2 (08:00→16:00)
[2016-09-09] MEDS: CHLORHEXIDINE 0.12% SOLN 15 ML (PERIDEX) UDC PO SCH ×2 (08:16→22:11)
[2016-09-09] MEDS: cefTRIAXone INJECTION 1,000 MG in NS (IVPB) 50 ML IV SCH (08:17)
--- NOTE | 2016-09-09 09:01 | Diagnostic Imaging Report ---
INDICATION: Respiratory failure. EXAMINATION: Portable chest at 4:54 AM. FINDINGS: There is an ET tube projecting over the trachea. There is an NG tube projecting over the stomach. The right IJ central line tip projects over the SVC. There are peripheral consolidating alveolar infiltrates in both lungs, unchanged from the previous day. IMPRESSION: Severe diffuse alveolar infiltrates, predominantly peripheral, with relative sparing of the apices. No interval change since the previous day. Dictated by: Dictated on workstation # [id number]
[2016-09-09] MEDS: NOREPINEPHRINE 4 MG in D5W 250 ML (IVPB) 250 ML IV SCH ×2 (09:27→17:50)
--- NOTE | 2016-09-09 10:01 | Occ Therapy Progress Note ---
Therapy Progress Note Date Seen by Provider: Sep 09, 2016 Time Seen by Provider: 09:55 Will continue to monitor pt. to begin skilled treatment. Pt. on vent. No skilled intervention until pt. off vent, and able to retain skilled instruction. [id number] DARSHAN SAAB OT Sep 09, 2016 10:01
--- NOTE | 2016-09-09 11:42 | Physical Therapy Evaluation ---
PT Evaluation-General Medical Diagnosis Admission Date Sep 05, 2016 at 21:20 Medical Diagnosis: sepsis Onset Date: Sep 05, 2016 Therapy Diagnosis Therapy Diagnosis: impaired mobility Height/Weight Height (Feet): 5 Height (Inches): 7.00 Weight (Pounds): 202 Weight (Ounces): 3.0 Precautions Precautions/Isolations: Standard Precautions Referral Physician: Oziel Burleson DO Reason for Referral: Evaluation/Treatment Medical History Pertinent Medical History: HTN Additional Medical History recently hospitalized for pancreatitis, asthma, aortic stenosis, high cholesterol, concussion, fibromyalgia, chronic ear infection, depression, surg ( right ear tumor removal, 3 lumps in right breast, adenoidectomy, appendectomy, c -section, gallbladder, hysterectomy, tonsillectomy) Current History went to ER via EMS, found unresponsive by family, CPR initiated, hypotensive Social History unknown Prior/Core FIM Prior Level of Function Functional [place] Measure 0=Not Assessed/NA 4=Minimal Assistance 1=Total Assistance 5=Supervision or Setup 2=Maximal Assistance 6=Modified [place] 3=Moderate Assistance 7=Complete [place] unknown PT Evaluation-Current Subjective Patient is intubated and sedated. PT eval was written to teach patient's family member how to perform ROM on lower extremities. Recommended performing ROM 1-2 times a day, in all planes. Pt/Family Goals teach patient's family member PROM to lower extremities Objective Patient Orientation: Unresponsive Attachments: SCD's, Oxygen, Butcher Catheter, IV ROM/Strength ROM Lower Extremities WNL, no contractures Transfers Functional [place] Measure 0=Not Assessed/NA 4=Minimal Assistance 1=Total Assistance 5=Supervision or Setup 2=Maximal Assistance 6=Modified [place] 3=Moderate Assistance 7=Complete [place] Assessment/Needs Patient has lower extremity ROM WNL, no contractures, no goals will be stated, patient will be discharged now. Rehab Potential: Poor PT Plan Treatment/Plan Treatment Plan: Discontinue PT Treatment Duration: Sep 09, 2016 Visits Per Week: 0 Safety Risks/Education Teaching patient's family member PROM of lower extremities. Discharge Recommendations Plan DC Time/GCodes Time In: 1115 Time Out: 1130 Total Billed Treatment Time: 15 Total Billed Treatment 1 visit [facility] Osvaldo' STEPHANIE DILLON PT Sep 09, 2016 11:42
[2016-09-09] MEDS ORDERED: EPINEPHrine 0.1 MG/ML 10 ML (HOSPIRA) SYR IJ ONE (12:00)
[2016-09-09] MEDS ORDERED: EPINEPHrine INJECTION 1 MG/ML AMP IJ ONE (12:00)
[2016-09-09] MEDS ORDERED: NS 250 ML (IVPB) BAG IV ONE (12:00)
[2016-09-09] MEDS ORDERED: NS 1000 ML IV BAG IV ONE (12:00)
[2016-09-09] MEDS ORDERED: ATROPINE INJECTION 1 MG/10 ML SYR (ABBOTT) INJ ONE (12:00)
[2016-09-09] MEDS ORDERED: AMIODARONE 150 MG/3 ML (CORDARONE) AMP IV ONE (12:00)
--- NOTE | 2016-09-09 12:35 | Progress Note-Cardiology ---
Cardiology SOAP Progress Note Subjective: Still on mech vent Unable to provide any history Objective: I&O/Vital Signs Vital Sign - Last 12Hours 09/09/16 09/09/16 09/09/16 09/09/16 00:35 01:00 01:00 02:00 Temp 96.8 94.9 Pulse 87 84 85 83 Resp 31 21 18 B/P (MAP) 100/58 112/62 Pulse Ox 100 100 100 O2 Flow Rate 55.00 55.00 FiO2 55 09/09/16 09/09/16 09/09/16 09/09/16 02:21 03:00 03:52 04:00 Temp 95.1 Pulse 85 100 100 Resp 33 23 28 B/P (MAP) 105/80 Pulse Ox 96 96 97 95 O2 Flow Rate 55.00 FiO2 55 55 55 09/09/16 09/09/16 09/09/16 09/09/16 04:00 05:00 05:20 06:00 Temp 97.7 97.2 97.7 Pulse 114 101 98 108 Resp 12 31 21 B/P (MAP) 82/52 103/77 99/37 104/63 Pulse Ox 99 97 96 99 O2 Delivery Mechanical Ventilator O2 Flow Rate 55.00 55.00 55.00 55.00 09/09/16 09/09/16 09/09/16 09/09/16 06:27 07:00 08:00 08:28 Temp 98.9 Pulse 110 128 104 Resp 31 30 B/P (MAP) 112/47 Pulse Ox 94 98 99 O2 Flow Rate 40.00 FiO2 55 40 Intake and Output 09/09/16 00:00 Intake Total 2684 ml Output Total 1050 ml Balance 1634 ml Weight (Pounds): 202 Weight (Ounces): 3.0 Weight (Calculated Kilograms): 91.193859 Constitutional: other (Intubated, sedated, on mec vent, unresponsive to verbal stimuli) Respiratory: other (on mech vent; fair air entry; bs diminished at the bases) Cardiovascular: regular rate-rhythm, S1 and S2, systolic murmur (soft SEBAS at card base) Gastrointestional: soft, No guarding, audible bowel sounds Extremities: cyanosis (cyanotic finger tips, R>L), No significant edema Neurologic/Psychiatric: other (currently intubated and sedated and not able to cooperate with a neuro exam) Skin: No rash on exposed areas, No ulcerations on exposed areas Results/Procedures: Labs Laboratory Tests 09/08/16 16:05: Glucometer 106 09/08/16 19:54: Glucometer 85 09/09/16 00:08: Glucometer 130H 09/09/16 03:58: White Blood Count 12.4H, Red Blood Count 3.38L, Hemoglobin 9.9L, Hematocrit 31L , Mean Corpuscular Volume 92, Mean Corpuscular Hemoglobin 29, Mean Corpuscular Hemoglobin Concent 32, Red Cell Distribution Width 14.1, Platelet Count 127L, Mean Platelet Volume 12.8H, Neutrophils (%) (Auto) 91H, Lymphocytes (%) (Auto) 7L, Monocytes (%) (Auto) 2, Eosinophils (%) (Auto) 0, Basophils (%) (Auto) 0, Neutrophils # (Auto) 11.3H, Lymphocytes # (Auto) 0.8L, Monocytes # (Auto) 0.3, Eosinophils # (Auto) 0.0, Basophils # (Auto) 0.0, Blood Gas Puncture Site RT RADIAL, Blood Gas Patient Temperature 96.1, Arterial Blood pH 7.29*L, Arterial Blood Partial Pressure CO2 52H, Arterial Blood Partial Pressure O2 58L, Arterial Blood HCO3 25, Arterial Blood Total CO2 26.6, Arterial Blood Oxygen Saturation 90L, Arterial Blood Base Excess -1.1, Anmol Test YES-POS, Blood Gas Ventilator Setting YES, Blood Gas Inspired Oxygen 55%, Sodium Level 143, Potassium Level 3.5L, Chloride Level 101, Carbon Dioxide Level 20L, Anion Gap 22H, Blood Urea Nitrogen 61H, Creatinine 1.02, Estimat Glomerular Filtration Rate 56, BUN/Creatinine Ratio 60, Glucose Level 181H, Calcium Level 8.1L, Phosphorus Level 5.5H, Magnesium Level 2.6H, Smear Scan YES 09/09/16 04:12: Lactic Acid Level 1.88 09/09/16 04:40: Blood Gas Puncture Site LT RADIAL, Blood Gas Patient Temperature 97.3, Arterial Blood pH 7.27*L, Arterial Blood Partial Pressure CO2 54H, Arterial Blood Partial Pressure O2 67L, Arterial Blood HCO3 24, Arterial Blood Total CO2 26.2, Arterial Blood Oxygen Saturation 92L, Arterial Blood Base Excess -1.7, Anmol Test YES-POS, Blood Gas Ventilator Setting YES, Blood Gas Inspired Oxygen 55% 09/09/16 08:31: Glucometer 108 Microbiology 09/07/16 Blood Culture - Preliminary, Resulted No growth 09/07/16 Gram Stain - Final, Complete 09/07/16 Sputum Culture - Final, Complete Staphylococcus Aureus 09/05/16 Urine Culture - Final, Complete Escherichia Coli A/P: Assessment: Septic shock, related to UTI and pneumonia Acute resp failure PAF with RVR, likely related to acute illness and resp failure requiring mech ventilation Echo on 09/08/16: LVEF 60%, triv MR and TR, no valvular stenosis, PASP 30-35 mmHg No evidence of ACS at this time Card cath of 05/17/14: mild CAD, LVEF 60%, LVEDP at top limit of normal Chronic tobacco use Plan: * Pt currently remains critically ill and management complex * iv dilt prn for vent rate control * Enoxaparin for DVT and stroke prophylaxis * Monitor labs closely * I spoke with her fam in detail and answered questions DOTTY GOSS MD FACP FAC CCDS Sep 09, 2016 12:35
--- NOTE | 2016-09-09 14:06 | Progress Note (SOAP) ---
Subjective Subjective/Events-last exam Afebrile, remains tachycardic, tachypneic and intubated. Daughter reports she was agitated when less sedated. Review of Systems Date Seen by Provider: Sep 09, 2016 Time Seen by Provider: 11:50 Objective Exam Last Set of Vital Signs Vital Signs Date Time Temp Pulse Resp B/P (MAP) Pulse Ox O2 Delivery O2 Flow Rate FiO2 09/09/16 12:53 98 40 09/09/16 12:51 100.5 105 36 132/65 40.00 09/09/16 05:20 Mechanical Ventilator Capillary Refill : Less Than 3 Seconds I&O Intake and Output 09/09/16 00:00 Intake Total 4134 ml Output Total 1925 ml Balance 2209 ml Intake Oral 0 ml IV Total 4134 ml Output Urine Total 1700 ml Gastric Drainage Total 225 ml General: Other (intubated, sedated) Lungs: Clear to Auscultation Heart: Other (tachycardic) Abdomen: Normal Bowel Sounds, Soft Extremities: No Edema Results/Procedures Lab Laboratory Tests 09/08/16 16:05: Glucometer 106 09/08/16 19:54: Glucometer 85 09/09/16 00:08: Glucometer 130H 09/09/16 03:58: White Blood Count 12.4H, Red Blood Count 3.38L, Hemoglobin 9.9L, Hematocrit 31L , Mean Corpuscular Volume 92, Mean Corpuscular Hemoglobin 29, Mean Corpuscular Hemoglobin Concent 32, Red Cell Distribution Width 14.1, Platelet Count 127L, Mean Platelet Volume 12.8H, Neutrophils (%) (Auto) 91H, Lymphocytes (%) (Auto) 7L, Monocytes (%) (Auto) 2, Eosinophils (%) (Auto) 0, Basophils (%) (Auto) 0, Neutrophils # (Auto) 11.3H, Lymphocytes # (Auto) 0.8L, Monocytes # (Auto) 0.3, Eosinophils # (Auto) 0.0, Basophils # (Auto) 0.0, Blood Gas Puncture Site RT RADIAL, Blood Gas Patient Temperature 96.1, Arterial Blood pH 7.29*L, Arterial Blood Partial Pressure CO2 52H, Arterial Blood Partial Pressure O2 58L, Arterial Blood HCO3 25, Arterial Blood Total CO2 26.6, Arterial Blood Oxygen Saturation 90L, Arterial Blood Base Excess -1.1, Anmol Test YES-POS, Blood Gas Ventilator Setting YES, Blood Gas Inspired Oxygen 55%, Sodium Level 143, Potassium Level 3.5L, Chloride Level 101, Carbon Dioxide Level 20L, Anion Gap 22H, Blood Urea Nitrogen 61H, Creatinine 1.02, Estimat Glomerular Filtration Rate 56, BUN/Creatinine Ratio 60, Glucose Level 181H, Calcium Level 8.1L, Phosphorus Level 5.5H, Magnesium Level 2.6H, Smear Scan YES 09/09/16 04:12: Lactic Acid Level 1.88 09/09/16 04:40: Blood Gas Puncture Site LT RADIAL, Blood Gas Patient Temperature 97.3, Arterial Blood pH 7.27*L, Arterial Blood Partial Pressure CO2 54H, Arterial Blood Partial Pressure O2 67L, Arterial Blood HCO3 24, Arterial Blood Total CO2 26.2, Arterial Blood Oxygen Saturation 92L, Arterial Blood Base Excess -1.7, Anmol Test YES-POS, Blood Gas Ventilator Setting YES, Blood Gas Inspired Oxygen 55% 09/09/16 08:31: Glucometer 108 09/09/16 12:50: Glucometer 149H Microbiology 09/07/16 Blood Culture - Preliminary, Resulted No growth 09/07/16 Gram Stain - Final, Complete 09/07/16 Sputum Culture - Final, Complete Staphylococcus Aureus 09/05/16 Urine Culture - Final, Complete Escherichia Coli Assessment/Plan Assessment/Plan Admission Dx Severe sepsis with UTI and pneumonia - Ecoli and S. Aureus Acute respiratory failure Unresponsive -on admit RML atelectasis on CXR Bacteremia - with staph aureus on Vanc Elevated creatine kinase -mild rhabdomyolysis Septic shock ARF with oliguria Metabolic lactic acidosis Hypokalemia on replacement protocol Plan Severe sepsis with UTI and pneumonia - Ecoli and S. Aureus -Dr. Burleson consulted for critical care, appreciate recommendations -On rocephin and vancomycin for urine with E coli and sputum with MRSA Acute hypoxic hypercapneic respiratory failure -Intubated, management per Dr. Burleson Unresponsive on admit -Not entirely clear initial insult but with sepsis and respiratory failure on admit -CT head without acute changes Bacteremia - with staph aureus on Vanc Elevated creatine kinase -mild rhabdomyolysis -Improving with IVF Septic shock -On norepinephrine and hydrocortisone ARF with oliguria -Resolved Metabolic lactic acidosis -Resolved Hypokalemia on replacement protocol Right hand discoloration Art line removed, US with slightly decreased flow in right radial but no stenosis or thrombus seen, doppler with no RUE DVT seen Improving PAF with RVR -Cardiology consulted, on IV dilt for rate control, echo 09/08 with normal EF and PAP 30-35 DVT ppx SCDs, enoxaparin GI ppx OG tube in place, on IV pantoprazole Diagnosis/Problems: Clinical Quality Measures DVT/VTE Risk/Contraindication: Risk Factor Score Per Nursin RFS Level Per Nursing on Admit: 4+=Very High CARLOTA CHAMBERLAIN MD Sep 09, 2016 2:06 pm
[2016-09-09] MEDS ORDERED: NS IV 500 ML 500 ML ONE (15:42)
[2016-09-09] MEDS ORDERED: TROUGH ORDER-PHARMACY XX NR (17:00)
[2016-09-09] MEDS ORDERED: ENOXAPARIN 80 MG/0.8 ML (LOVENOX) SYR SC SCH (21:00)
[2016-09-09 22:48] LABS: ABG HCO3 27 MMOL/L (23-27); ABG OXYGEN SATURATION 78 % (94-100); ABG PCO2 67 MMHG (35-45); ABG PO2 47 MMHG (79-93); ABG TCO2 29.6 MMOL/L (21.0-31.0)
[2016-09-09 22:51] LABS: ABG PH 7.22 (7.37-7.43)
[2016-09-09 22:52] LABS: ALLENS TEST YES-POS; PATIENT TEMP 99.3
[2016-09-09 23:58] LABS: CALCIUM IONIZED 0.98 mmol/L (1.16-1.32)
[2016-09-10] MEDS ORDERED: DIGOXIN 0.25 MG/ML (LANOXIN) 2 ML AMP ONE (00:47)
--- NOTE | 2016-09-10 02:08 | Progress Note-Standard ---
Standard Progress Note Progress Notes/Assess & Plan Date Seen by Provider: Sep 10, 2016 Time Seen by Provider: 02:06 Progress/Assessment & Plan Called to ICU for patient coding. Arrived to ICU E-ICU physician running code. Asked if he wanted an intubation. E-ICU physician requesting I wait till next pulse check. After pulse check, E-ICU physician called code. YASMIN AJ CRNA Sep 10, 2016 02:08
[2016-09-10] MEDS ORDERED: NS IV 1000 ML 1,000 ML IV SCH (03:15)
[2016-09-10] MEDS ORDERED: DIGOXIN 0.25 MG/ML (LANOXIN) 2 ML AMP IV ONE (03:15)
[2016-09-10] MEDS ORDERED: AMIODARONE IV ONE (03:15)
[2016-09-10] MEDS ORDERED: EPINEPHrine 1 MG INJECTION 2 MG in NS (IVPB) 248 ML IV SCH (03:15)
[2016-09-10] MEDS ORDERED: D5W IV ONE (03:15)
[2016-09-10 07:31] LABS: CALCIUM PH 7.19
--- NOTE | 2016-09-10 08:26 | Diagnostic Imaging Report ---
INDICATION: Chest pain EXAMINATION: Portable chest at 11:48 PM. There is left thoracostomy tube in place. There's been interval evacuation of most of the left pneumothorax with only a sliver of pneumothorax remaining at the apex. There is some subcutaneous emphysema along the left lateral chest wall. There is a right pneumothorax that is predominantly located in the lateral aspect of the pleural space. It measures up to 2 cm in thickness. There is a dense infiltrate in the right lung. There is some patchy infiltrate and/or atelectasis in the left lung. ET tube projects over the trachea. NG tube enters the stomach. Right IJ central line tip projects over the SVC. IMPRESSION: There's been interval placement of a left thoracostomy tube with evacuation of most of the left pneumothorax from reexpansion of left lung. There continues to be a small right pneumothorax. Dictated by: Dictated on workstation # [id number]
--- NOTE | 2016-09-10 08:34 | Discharge Summary ---
Diagnosis/Chief Complaint Date of Admission Sep 05, 2016 at 21:20 Date of Discharge September 10, 2016 Admission Diagnosis Admission Diagnosis Severe sepsis with UTI and pneumonia - Ecoli and S. Aureus Acute respiratory failure Unresponsive -on admit RML atelectasis on CXR Bacteremia - with staph aureus on Vanc Elevated creatine kinase -mild rhabdomyolysis Septic shock ARF with oliguria Metabolic lactic acidosis Hypokalemia on replacement protocol Discharge Diagnosis Pneumothorax, fatal arrhythmia- overnight 09/09 into 09/10 had increasing respiratory distress, eICU managing at that time- x-ray showed pneumothorax and Surgery was consulted and placed chest tube, but she continued to have distress and intermittent arrhythmia, underwent extensive resuscitation procedure for over an hour with multiple doses of epinephrine and chest tube on contralateral side also placed, but ultimately no sustained spontaneous return of circulation was achieved and patient was pronounced by eICU physician with nurse confirmation at 2 am on 09/10. Severe sepsis with UTI and pneumonia - Ecoli and S. Aureus -Was rocephin and vancomycin for urine with E coli and sputum with MRSA Acute hypoxic hypercapneic respiratory failure -Intubated, management per Dr. Burleson Unresponsive on admit -Not entirely clear initial insult but with sepsis and respiratory failure on admit -CT head without acute changes Bacteremia - with staph aureus on Vanc Elevated creatine kinase -mild rhabdomyolysis -Improved with IVF Septic shock -Maintained on norepinephrine and hydrocortisone ARF with oliguria -Resolved Metabolic lactic acidosis -Resolved Hypokalemia on replacement protocol Right hand discoloration Art line removed, US with slightly decreased flow in right radial but no stenosis or thrombus seen, doppler with no RUE DVT seen PAF with RVR -Cardiology consulted, started on IV dilt for rate control, echo 09/08 with normal EF and PAP 30-35 DVT ppx SCDs, enoxaparin GI ppx OG tube was placed and placed on IV pantoprazole Chief Complaint/HPI Chief Complaint/HPI From Dr. Vuong's H&P "This is a 56 yoWF pt that was seen multiple times this past week for back pain, given pain meds. Pt fell down at home and was found at home. She presented hypotensive in ER. Pt was intubated due to severe sepsis since ABG showed 7.14/49/58 and was not a candidate for Bipap. UA shows TNTC WBCs so we are treated presumed pyelo with severe sepsis.Pt on max pressor therapy with stress dose steroids with Vanc and Meropenem." Discharge Summary-Simple/Stand Procedures Central line placement Arterial line placement Endotracheal intubation Bilateral chest tube placement Consultations Discharge Physical Examination Allergies: Coded Allergies: ciprofloxacin (Verified Allergy, Unknown, 08/24/14) naproxen (Verified Allergy, Unknown, 08/24/14) HEADACHE ondansetron (Unverified Allergy, Unknown, 03/17/14) Vitals & I&Os Vital Sign - Last 12Hours Date Time Temp Pulse Resp B/P (MAP) Pulse Ox O2 Delivery O2 Flow Rate FiO2 09/10/16 00:00 93 70 09/09/16 23:45 98.8 105 19 125/67 100.00 09/09/16 05:20 Mechanical Ventilator Intake and Output 09/10/16 00:00 Intake Total 2654 ml Output Total 770 ml Balance 1884 ml Hospital Course See final discharge diagnosis. Labs Laboratory Tests Test 09/08/16 16:05 09/08/16 19:54 09/09/16 00:08 09/09/16 03:58 Range/Units Glucometer 106 85 130 H 70-110 MG/DL White Blood Count 12.4 H 4.3-11.0 10^3/uL Red Blood Count 3.38 L 4.35-5.85 10^6/uL Hemoglobin 9.9 L 11.5-16.0 G/DL Hematocrit 31 L 35-52 % Mean Corpuscular Volume 92 80-99 FL Mean Corpuscular Hemoglobin 29 25-34 PG Mean Corpuscular Hemoglobin Concent 32 32-36 G/DL Red Cell Distribution Width 14.1 10.0-14.5 % Platelet Count 127 L 130-400 10^3/uL Mean Platelet Volume 12.8 H 7.4-10.4 FL Neutrophils (%) (Auto) 91 H 42-75 % Lymphocytes (%) (Auto) 7 L 12-44 % Monocytes (%) (Auto) 2 0-12 % Eosinophils (%) (Auto) 0 0-10 % Basophils (%) (Auto) 0 0-10 % Neutrophils # (Auto) 11.3 H 1.8-7.8 X 10^3 Lymphocytes # (Auto) 0.8 L 1.0-4.0 X 10^3 Monocytes # (Auto) 0.3 0.0-1.0 X 10^3 Eosinophils # (Auto) 0.0 0.0-0.3 10^3/uL Basophils # (Auto) 0.0 0.0-0.1 10^3/uL Blood Gas Puncture Site RT RADIAL Blood Gas Patient Temperature 96.1 Arterial Blood pH 7.29 *L 7.37-7.43 Arterial Blood Partial Pressure CO2 52 H 35-45 MMHG Arterial Blood Partial Pressure O2 58 L 79-93 MMHG Arterial Blood HCO3 25 23-27 MMOL/L Arterial Blood Total CO2 26.6 21.0-31.0 MMOL/L Arterial Blood Oxygen Saturation 90 L 94-100 % Arterial Blood Base Excess -1.1 -2.5-2.5 MMOL/L Anmol Test YES-POS Blood Gas Ventilator Setting YES Blood Gas Inspired Oxygen 55% Sodium Level 143 135-145 MMOL/L Potassium Level 3.5 L 3.6-5.0 MMOL/L Chloride Level 101 98-107 MMOL/L Carbon Dioxide Level 20 L 21-32 MMOL/L Anion Gap 22 H 5-14 MMOL/L Blood Urea Nitrogen 61 H 7-18 MG/DL Creatinine 1.02 0.60-1.30 MG/DL Estimat Glomerular Filtration Rate 56 BUN/Creatinine Ratio 60 Glucose Level 181 H 70-105 MG/DL Calcium Level 8.1 L 8.5-10.1 MG/DL Phosphorus Level 5.5 H 2.3-4.7 MG/DL Magnesium Level 2.6 H 1.8-2.4 MG/DL Smear Scan YES Test 09/09/16 04:12 09/09/16 04:40 09/09/16 08:31 09/09/16 12:50 Range/Units Lactic Acid Level 1.88 0.50-2.00 MMOL/L Blood Gas Puncture Site LT RADIAL Blood Gas Patient Temperature 97.3 Arterial Blood pH 7.27 *L 7.37-7.43 Arterial Blood Partial Pressure CO2 54 H 35-45 MMHG Arterial Blood Partial Pressure O2 67 L 79-93 MMHG Arterial Blood HCO3 24 23-27 MMOL/L Arterial Blood Total CO2 26.2 21.0-31.0 MMOL/L Arterial Blood Oxygen Saturation 92 L 94-100 % Arterial Blood Base Excess -1.7 -2.5-2.5 MMOL/L Anmol Test YES-POS Blood Gas Ventilator Setting YES Blood Gas Inspired Oxygen 55% Glucometer 108 149 H 70-110 MG/DL Test 09/09/16 16:05 09/09/16 16:58 09/09/16 20:49 09/09/16 22:34 Range/Units Glucometer 107 172 H 70-110 MG/DL Vancomycin Level Trough 16.0 10.0-20.0 UG/ML Blood Gas Puncture Site LT RAD Blood Gas Patient Temperature 99.3 Arterial Blood pH 7.22 *L 7.37-7.43 Arterial Blood Partial Pressure CO2 67 H 35-45 MMHG Arterial Blood Partial Pressure O2 47 L 79-93 MMHG Arterial Blood HCO3 27 23-27 MMOL/L Arterial Blood Total CO2 29.6 21.0-31.0 MMOL/L Arterial Blood Oxygen Saturation 78 L 94-100 % Arterial Blood Base Excess 0.0 -2.5-2.5 MMOL/L Anmol Test YES-POS Blood Gas Ventilator Setting YES Blood Gas Inspired Oxygen 100% Discharge Condition at discharge Clinical Quality Measures DVT/VTE Risk/Contraindication: Risk Factor Score Per Nursin RFS Level Per Nursing on Admit: 4+=Very High Comfort Measures/ Cardiopulmonary Arrest: Cardiorespiratory Arrest Date of : Sep 10, 2016 Time of : 02:00 CARLOTA CHAMBERLAIN MD Sep 10, 2016 08:34
--- NOTE | 2016-09-10 08:34 | Diagnostic Imaging Report ---
Portable upright radiograph of the chest. INDICATION: Hypoxia. FINDINGS AND IMPRESSION: The lungs are collapsed, worse on the left side with a large pneumothorax about 50%. The right side demonstrates a 15% pneumothorax. The remaining lungs on both sides demonstrate severe consolidation. There is air densities below the lung on both sides probably from the pneumothorax. ET tube is seen at the clavicles level, NG tube and right IJ line are in good position. This radiograph was evaluated with the ICU physicians before being presented to be read and pneumothorax was recognized. Dictated by: Dictated on workstation # [id number]
--- NOTE | 2016-09-10 09:26 | OPERATIVE REPORT ---
DATE OF SERVICE: 09/10/2016 PREOPERATIVE DIAGNOSIS: Bilateral pneumothorax. PROCEDURE: Bilateral tube thoracostomy (chest tube placement). SURGEON: Redd Haynes MD INDICATIONS FOR PROCEDURE: This lady has been on mechanical ventilatory support regarding a pneumonia-induced sepsis. She was found to be hypoxic and a chest x-ray confirmed bilateral pneumothoraces, left being larger than the right side. Her management was mainly controlled by the eICU physician remotely. I have reviewed the chest x-ray myself and initially elected to place a chest tube on the left side. Subsequently, as she became hypotensive, a chest tube was placed on the right pleural cavity as well. DESCRIPTION OF PROCEDURE: 1. Left chest tube placement: The left chest wall was prepared and draped in the usual sterile manner. A 2 cm incision was made along the mid axillary line over the fifth intercostal space and a 28-Argentine chest tube placed uneventfully. Copious amounts of pneumothorax were encountered. The tube was then connected to closed suction underwater seal system. It was then secured using silk sutures. A nonadherent dressing was then applied. 2. Right chest tube placement: As hypotension leading to cardiac arrest happened, resuscitation steps were underway. With concern about tension pneumothorax on the right side, I placed a 28-Argentine chest tube uneventfully on the right side as well. However, there was no return of any air. Yellow colored fluid consistent with an effusion was encountered. The chest tube was then secured with silk sutures and a dressing applied. Job ID: [id number] DocumentID: [id number] Dictated Date: 09/10/2016 08:36:50 Carpet Mechanic Date: 09/10/2016 09:26:19 Dictated By: REDD HAYNES MD [facility]
== END 2016-09-10 02:00 | disposition expired | DRG 870 ==
LOC: EDUNIT# 20:16 → ER 20:18 → ICU 21:20
PROVIDERS: ADMIT Internal Medicine; ATTEND Internal Medicine
PROC: 5A1955Z Respiratory Ventilation, Greater than 96 Consecutive Hours (ICD-10-PCS; principal; 2016-09-05)
PROC: 02HV33Z Insertion of Infusion Device into Superior Vena Cava, Percutaneous Approach (ICD-10-PCS; 2016-09-06)
PROC: 0W9930Z Drainage of Right Pleural Cavity with Drainage Device, Percutaneous Approach (ICD-10-PCS; 2016-09-10)
PROC: 0W9B30Z Drainage of Left Pleural Cavity with Drainage Device, Percutaneous Approach (ICD-10-PCS; 2016-09-10)
DX: A41.9 Sepsis, unspecified organism (principal); N12 Tubulo-interstitial nephritis, not specified as acute or chronic; R65.21 Severe sepsis with septic shock; J15.211 Pneumonia due to Methicillin susceptible Staphylococcus aureus; J93.9 Pneumothorax, unspecified; J96.01 Acute respiratory failure with hypoxia; J96.02 Acute respiratory failure with hypercapnia; N17.9 Acute kidney failure, unspecified; E87.2 Acidosis; M62.82 Rhabdomyolysis; F17.210 Nicotine dependence, cigarettes, uncomplicated; E78.00 Pure hypercholesterolemia, unspecified; I10 Essential (primary) hypertension; I35.0 Nonrheumatic aortic (valve) stenosis; E11.9 Type 2 diabetes mellitus without complications; L93.0 Discoid lupus erythematosus; M79.7 Fibromyalgia; R34 Anuria and oliguria; E87.6 Hypokalemia; B96.20 Unspecified Escherichia coli [E. coli] as the cause of diseases classified elsewhere; E86.0 Dehydration; I48.0 Paroxysmal atrial fibrillation
CPT/HCPCS: 31500; 36415; 36556; 36620; 70450; 71010; 71250; 74150; 76770; 80048; 80053; 80202; 80306; 80320; 80329; 81000; 82040; 82330; 82375; 82550; 82553; 82805; 82962; 83036; 83050; 83605; 83735; 83880; 84100; 84443; 84484; 85007; 85018; 85025; 85027; 85045; 85379; 85384; 85610; 85730; 87040; 87070; 87077; 87088; 87186; 87205; 93005; 93041; 93306; 93931; 94002; 94003; 94640; 94799; 96360